=== PATIENT | female | born 1955 | race Caucasian/White ===

== ENCOUNTER 2020-04-03 08:18 | Inpatient (IN) | payer BC ==
[~2020-04-03] VITALS: Ht 162.6 cm; Wt 91.7 kg
[~2020-04-03 08:18] MED LIST: ADVAIR 250-501 EACH; ALBUTEROL SULF8.5 GM INH; ALPRAZOLAM0.25 MG PO; ATORVASTATIN CA20 MG PO; BENZONATATE100 MG PO; CAPTOPRIL25 MG PO; CARVEDILOL12.5 MG PO; COUMADIN5 MG PO; OMEPRAZOLE40 MG PO; POTASSIUM; SINGULAIR10 MG PO; WARFARIN SODIUM3 MG PO
--- OUTSIDE RECORDS SUMMARY | 2020-04-03 08:29 | XMS REPORT | Clinical Summary ---
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 Patient was taking brand name coumadin but brand name is discontinued. Patient was suppose to start generic on Wednesday. Active captopriL (CAPOTEN) 12.5 Take 12.5 mg 0 MG tablet by mouth 3 (three) times a day. Active montelukast (SINGULAIR) Take 10 mg by 0 10 mg tablet mouth nightly. Active omeprazole (PriLOSEC) 20 Take 20 mg by 0 MG capsule mouth daily. Active carvediloL (COREG) 12.5 Take 12.5 mg 0 MG tablet by mouth 2 (two) times a day with meals. Active atorvastatin (LIPITOR) 80 Take 80 mg by 0 MG tablet mouth nightly. Active albuterol (PROAIR HFA) 90 Inhale 2 0 mcg/actuation inhaler puffs every 6 (six) hours as needed for wheezing. Active nitroglycerin (NITROSTAT) Place 0.4 mg 0 0.4 MG SL tablet under the tongue every 5 (five) minutes as needed for chest pain. Active fluticasone Inhale 1 puff 0 propion-salmeteroL 2 (two) times (ADVAIR/ WIXELA INHUB) a day. 250-50 mcg/dose DISKUS Active vitamin B complex (B Take 1 tablet 0 COMPLEX ORAL) by mouth daily. Active ascorbic acid (VITAMIN C Take 1 tablet 0 ORAL) by mouth daily. Active vitamin B complex (B Take 1 tablet 0 COMPLEX ORAL) by mouth daily. 02/09/2020 aspirin 81 mg chewable Chew 1 tablet 30 tablet 0 0 tablet (81 mg total) 0 daily for 30 days. 01/10/2020 Discontinued (Reorder) furosemide (Lasix) 40 mg Take 1 tablet 15 tablet 0 tablet (40 mg total) 0 by mouth daily as needed (SOB) for up to 15 days. 01/15/2020 methylPREDNISolone follow 21 tablet 0 02 (Medrol, Tk,) 4 mg package 0 tablet directions 01/20/2020 azithromycin (ZITHROMAX) Take 1 tablet 10 tablet 0 500 MG tabletIndications: (500 mg 0 PNA total) by mouth daily for 10 days .PNA. Take 1 Tab Daily Additional Information Patient taking differently: 500 mg oral daily, Take 1 Tab DailyPt states that Dr Connell asked him to stop with 4 days left in regiment., Indications: PNA, Reported on 01/17/2020 01/25/2020 furosemide (Lasix) 40 mg Take 0.5 15 tablet 0 0 tablet tablets (20 0 mg total) by mouth daily as needed (SOB) for up to 15 days. Active Problems Problem Noted Date JACQUIE (acute kidney injury) 01/07/2020 Pneumonia due to infectious organism 01/07/2020 Acute on chronic congestive heart failure 01/05/2020 Encounters Care Team Description Date Type Specialty Halima Gallo NP Acute on chronic systolic congestive hea rt failure (HCC) (Primary Dx) 01/17/2020 Telemedicine Cardiology Provider, Unknown 01/17/2020 Documentation Medical Records Jeffrey Blair RN Follow-up 01/17/2020 Telephone Cardiology 01/16/2020 Travel Olga Lidia Mcgill MD Joglekar, Swati, MD Patel, Ruchita, MD Acute on chronic congestive heart failur e, unspecified heart failure type (HCC) (Primary Dx); COPD exacerbation (HCC) 01/05/2020 Hospital Cardiology - Encounter 01/10/2020 after 04/03/2019 Surgical History Surgery Date Site/Laterality Comments STENT cardiac stent x3 (2004, 2nd 2006, and 2007) Medical History Medical History Date Comments CHF (congestive heart failure) (HCC) Heart attack (HCC) x3 Stroke (HCC) 2012 Pneumonia 2015 Hypertension Social History Date Tobacco Use Types Packs/Day Years Used Current Every Day Smoker Cigarettes 1 Smokeless Tobacco: Never Used Drinks/Week oz/Week Comments Alcohol Use Never Alcohol Habits Answer Date Recorded How often do you have a drink containing alcohol? Never 01/05/2020 How many drinks containing alcohol do you have on No t asked a typical day when you are drinking? How often do you have six or more drinks on one Not asked occasion? Sex Assigned at Date Recorded Not on file Last Filed Vital Signs Reading Time Taken Comments Vital Sign 135/76 01/10/2020 12:13 PM CDT Blood Pressure 60 01/10/2020 12:13 PM CDT Pulse 36 C (96.8 F) 01/10/2020 12:13 PM CDT Temperature 18 01/10/2020 12:13 PM CDT Respiratory Rate 96% 01/10/2020 12:13 PM CDT Oxygen Saturation - - Inhaled Oxygen Concentration 91.9 kg (202 lb 9.6 oz) 01/10/2020 7:20 AM CDT Weight 162.6 cm (5' 4") 01/06/2020 1:00 AM CDT Height 34.78 01/06/2020 1:00 AM CDT Body Mass Index Plan of Treatment Health Maintenance Due Date Last Done Comments CERVICAL CANCER SCREENING 1978 BREAST CANCER SCREENING 2007 COLONOSCOPY SCREENING 2007 SHINGLES VACCINES (#1) 2007 INFLUENZA VACCINE 12/16/2019 Procedures Comments Procedure Name Priority Date/Time Associated Diag nosis ESTIMATED GFR Routine 01/10/2020 6:00 AM CDT COMPREHENSIVE METABOLIC Routine 01/10/2020 PANEL 6:00 AM CDT HC COMPLETE BLD COUNT Routine 01/10/2020 W/AUTO DIFF 6:00 AM CDT PROTHROMBIN TIME WITH INR STAT 01/09/2020 3:17 PM CDT [id number] IGG Routine 01/09/2020 3:16 PM CDT ECG 12-LEAD STAT 01/09/2020 9:21 AM CDT HC COMPLETE BLD COUNT Routine 01/09/2020 W/AUTO DIFF 4:50 AM CDT ESTIMATED GFR Routine 01/09/2020 4:00 AM CDT B NATRIURETIC PEPTIDE Routine 01/09/2020 4:00 AM CDT D-DIMER Routine 01/09/2020 4:00 AM CDT FERRITIN LEVEL Routine 01/09/2020 4:00 AM CDT INTERLEUKIN 6 Routine 01/09/2020 4:00 AM CDT C-REACTIVE PROTEIN Routine 01/09/2020 4:00 AM CDT COMPREHENSIVE METABOLIC Routine 01/09/2020 PANEL 4:00 AM CDT MAGNESIUM LEVEL Routine 01/09/2020 4:00 AM CDT PHOSPHORUS LEVEL Routine 01/09/2020 4:00 AM CDT LACTIC ACID LEVEL Routine 01/09/2020 4:00 AM CDT ECG 12-LEAD STAT 01/08/2020 9:19 AM CDT ESTIMATED GFR Routine 01/08/2020 3:50 AM CDT D-DIMER Routine 01/08/2020 3:50 AM CDT FERRITIN LEVEL Routine 01/08/2020 3:50 AM CDT INTERLEUKIN 6 Routine 01/08/2020 3:50 AM CDT C-REACTIVE PROTEIN Routine 01/08/2020 3:50 AM CDT COMPREHENSIVE METABOLIC Routine 01/08/2020 PANEL 3:50 AM CDT MAGNESIUM LEVEL Routine 01/08/2020 3:50 AM CDT PHOSPHORUS LEVEL Routine 01/08/2020 3:50 AM CDT LACTIC ACID LEVEL Routine 01/08/2020 3:50 AM CDT HC COMPLETE BLD COUNT Routine 01/08/2020 W/AUTO DIFF 3:50 AM CDT RESPIRATORY PATHOGEN Routine 01/07/2020 PANEL 8:55 PM CDT TTE COMPLETE, W CONTRAST, Routine 01/07/2020 W DOPPLER ([id number]) 2:30 PM CDT XR CHEST 1 VW PORTABLE Routine 01/07/2020 7:15 AM CDT ESTIMATED GFR Routine 01/07/2020 5:25 AM CDT D-DIMER Routine 01/07/2020 5:25 AM CDT FERRITIN LEVEL Routine 01/07/2020 5:25 AM CDT INTERLEUKIN 6 Routine 01/07/2020 5:25 AM CDT TRIGLYCERIDES Routine 01/07/2020 5:25 AM CDT C-REACTIVE PROTEIN Routine 01/07/2020 5:25 AM CDT COMPREHENSIVE METABOLIC Routine 01/07/2020 PANEL 5:25 AM CDT IONIZED CALCIUM Routine 01/07/2020 5:25 AM CDT TROPONIN Routine 01/07/2020 5:25 AM CDT MAGNESIUM LEVEL Routine 01/07/2020 5:25 AM CDT PHOSPHORUS LEVEL Routine 01/07/2020 5:25 AM CDT LACTIC ACID LEVEL Routine 01/07/2020 5:25 AM CDT HC COMPLETE BLD COUNT Routine 01/07/2020 W/AUTO DIFF 5:25 AM CDT POC GLUCOSE Routine 01/06/2020 8:[address] ANGIOGRAM PE CHEST STAT 01/06/2020 8:12 PM CDT TROPONIN STAT 01/06/2020 7:00 PM CDT COVID-19 QUALITATIVE PCR Routine 01/06/2020 12:28 PM CDT ARTERIAL BLOOD GAS Routine 01/06/2020 3:58 AM CDT ESTIMATED GFR Routine 01/06/2020 3:05 AM CDT B NATRIURETIC PEPTIDE Routine 01/06/2020 3:05 AM CDT C-REACTIVE PROTEIN Routine 01/06/2020 3:05 AM CDT FERRITIN LEVEL Routine 01/06/2020 3:05 AM CDT LDH Routine 01/06/2020 3:05 AM CDT TRIGLYCERIDES Routine 01/06/2020 3:05 AM CDT D-DIMER Routine 01/06/2020 3:05 AM CDT COMPREHENSIVE METABOLIC Routine 01/06/2020 PANEL 3:05 AM CDT INTERLEUKIN 6 Routine 01/06/2020 3:05 AM CDT HC COMPLETE BLD COUNT Routine 01/06/2020 W/AUTO DIFF 3:05 AM CDT MAGNESIUM LEVEL Routine 01/06/2020 3:05 AM CDT PHOSPHORUS LEVEL Routine 01/06/2020 3:05 AM CDT TROPONIN Timed 01/06/2020 12:55 AM CDT TROPONIN Timed 01/05/2020 10:00 PM CDT COVID-19 QUALITATIVE PCR STAT 01/05/2020 7:46 PM CDT XR CHEST 1 VW PORTABLE STAT 01/05/2020 6:53 PM CDT ESTIMATED GFR STAT 01/05/2020 6:30 PM CDT PARTIAL THROMBOPLASTIN STAT 01/05/2020 TIME (PTT) 6:30 PM CDT PROTHROMBIN TIME WITH INR STAT 01/05/2020 6:30 PM CDT B NATRIURETIC PEPTIDE STAT 01/05/2020 6:30 PM CDT TROPONIN STAT 01/05/2020 6:30 PM CDT CREATINE KINASE, TOTAL STAT 01/05/2020 (CPK) 6:30 PM CDT COMPREHENSIVE METABOLIC STAT 01/05/2020 PANEL 6:30 PM CDT HC COMPLETE BLD COUNT STAT 01/05/2020 W/AUTO DIFF 6:30 PM CDT ECG ED PRELIMINARY Routine 01/05/2020 INTERPRETATION 6:22 PM CDT RI CRITICAL CARE, E/M Routine 01/05/2020 30-74 MINUTES 6:22 PM CDT ECG 12-LEAD Routine 01/05/2020 6:20 PM CDT after 04/03/2019 Results * Estimated GFR (01/10/2020 6:00 AM CDT) Only the most recent of 6 results within the time period is included. Pathologist [facility] [place] Estimated GFR 66 mL/min/1.73 m2 [place] Comment: [facility] Interpretation G1 >=90 Normal or high G2 60-89 Mildly decreased G3a 45-59 Mildly to moderately decreased G3b 30-44 Moderately to severely decreased G4 15-29 Severely decreased G5 <15 Kidney failure The eGFR was calculated using the Chronic Kidney Disease Epidemiology Collaboration (CKD-EPI) equation. Interpretation is based on recommendations of the National Kidney Foundation-Kidney Disease Outcomes Quality Initiative (NKF-KDOQI) published in 2014. Specimen Performing Organization Address City/State/ZIP Code P adrien Number [facility] DEPARTMENT OF [address] [place] [address] PATHOLOGY AND GENOMIC MEDICINE [address] * CBC with platelet and differential (01/10/2020 6:00 AM CDT) Only the most recent of 6 results within the time period is included. Pathologist [facility] [place] WBC 13.38 (H) 4.50 - 11.00 k/uL [facility] RBC 4.68 4.20 - 5.50 m/uL [facility] HGB 14.5 12.0 - 16.0 g/dL [facility] HCT 44.4 37.0 - 47.0 % [facility] MCV 94.9 82.0 - 100.0 fL [facility] MCH 31.0 27.0 - 34.0 pg [facility] MCHC 32.7 31.0 - 37.0 g/dL [facility] RDW - SD 50.4 37.0 - 55.0 fL [facility] MPV 11.0 8.8 - 13.2 fL [facility] Platelet count 201 150 - 400 k/uL [facility] Nucleated RBC 0.00 /100 WBC [facility] Neutrophils 80.6 (H) 39.0 - 69.0 % [facility] Lymphocytes 10.5 (L) 25.0 - 45.0 % [facility] Monocytes 7.5 0.0 - 10.0 % [facility] Eosinophils 0.1 0.0 - 5.0 % [facility] Basophils 0.2 0.0 - 1.0 % [facility] Immature 1.1 (H)Comment: "Immature 0.0 - 1.0 % [facility] [place] granulocytes granulocytes" (promyelocytes, METHOD IST myelocytes, metamyelocytes) [facility] Specimen Blood Performing Organization Address City/State/ZIP Code P adrien Number [facility] DEPARTMENT OF [address] [place] [address] PATHOLOGY AND GENOMIC MEDICINE [address] * Comprehensive metabolic panel (01/10/2020 6:00 AM CDT) Only the most recent of 6 results within the time period is included. Sodium 140 135 - 148 mEq/L [facility] Potassium 4.4 3.5 - 5.0 mEq/L [facility] Chloride 96 (L) 98 - 112 mEq/L [facility] CO2 29 24 - 31 mEq/L [facility] Anion gap 15@ANIO 7 - 15 mEq/L [facility] BUN 27 (H) 8 - 23 mg/dL [facility] Creatinine 0.93 (H) 0.50 - 0.90 mg/dL [facility] Glucose 113 (H) 65 - 99 mg/dL [facility] Calcium 9.4 8.8 - 10.2 mg/dL [facility] Protein 6.5 6.3 - 8.3 g/dL [place] Comment: [facility] [place] 4.6-7.0 g/dL 1 week 4.4-7.6 g/dL 7 months-1year 5.1-7.3 g/dL 1-2 years 5.6-7.5 g/dL >3 years 6.0-8.0 g/dL 18-150 6.3-8.3 g/dL Albumin 3.3 (L) 3.5 - 5.0 g/dL [facility] A/G ratio 1.0 0.7 - 3.8 [facility] Alkaline 52 35 - 104 U/L [place] phosphatase [facility] AST 24 10 - 35 U/L [facility] ALT 30 5 - 50 U/L [facility] Total bilirubin 0.3 0.0 - 1.2 mg/dL [facility] Specimen Blood Performing Organization Address City/[facility] P adrien Number [facility] [place] [address] PATHOLOGY AND [facility] MEDICINE [address] * Prothrombin time with INR (01/09/2020 3:17 PM CDT) Only the most recent of 2 results within the time period is included. [facility] Prothrombin 13.4 11.5 - 14.5 sec [facility] INR 1.0 [place] Comment: [place] The International Normalized HOSPITAL Ratio (INR) is a therapeutic monitoring tool for patients who are stable on oral anticoagulant therapy. An INR of 2.0-3.0 is suggested for deep vein thrombosis/pulmonary embolism. Specimen Blood Performing Organization Address City/[facility] [place] [address] PATHOLOGY AND GENOMIC MEDICINE [address] * [id number] IgG (01/09/2020 3:16 PM CDT) Pathologist [facility] [place] [id number] Non-reactive Non-reactive [place] IgG Comment: HIND[place] This test should not be used HOSPITAL for the diagnosis of acute SARS-CoV-2/COVID-19 infection. Results are for the detection of IgG SARS-CoV-2 antibodies. Reactive results often indicate a past infection although a recent infection is not excluded. Non-reactive results do not preclude SARS-CoV-2 infection and should not be used as the sole basis for patient management decisions. Results must be combined with clinical observations, patient history, and epidemiological information. The sensitivity of the SARS-CoV-2 IgG assay early after infection is unknown. False reactive results may occur due to cross-reactivity from pre-existing antibodies or other possible causes. At this time, it is unknown for how long antibodies to SARS-CoV-2 virus may persist following infection. This test has not been FDA cleared or approved. This test has been authorized by FDA under an EUA for use by authorized laboratories. This test has been authorized only for the presence of IgG antibodies against SARS-CoV-2, not for any other viruses or pathogens. This test is only authorized for the duration of the declaration that circumstances exist justifying the authorization of emergency use of in vitro diagnostics for detection and/or diagnosis of COVID-19 under Section 564(b)(1) of the Act, 21 U.S.C. 360bbb-3(b)(1), unless authorization is terminated or revoked sooner. Specimen Serum Performing Organization Address City/State/ZIP Code P adrien Number [facility] DEPARTMENT OF [address] [place] [address] PATHOLOGY AND GENOMIC MEDICINE [place] [address] [place] [address] * ECG 12 lead (01/09/2020 9:21 AM CDT) Only the most recent of 3 results within the time period is included. Ventricular 61 [facility] rate Atrial rate 61 [facility] RI interval 144 [facility] QRSD interval 104 [facility] QT interval 422 [facility] QTC interval 424 [facility] P axis 1 69 [facility] QRS axis 1 -10 [facility] T wave axis 270 [facility] EKG impression Normal sinus rhythm-Possible [facility] Left atrial enlargement-Left ventricular hypertrophy-Anteroseptal infarct (cited on or before 08-JAN-2020)-ST & T wave abnormality, consider inferior ischemia-Abnormal ECG-In automated comparison with ECG of 08-JAN-2020 09:19,-Serial changes of evolving Anteroseptal infarct present- Specimen Narrative Performed At This result has an attachment that is n ot available. Performing Organization Address City/State/ZIP Code P adrien Number [facility] MUSE [address] [place] [address] * Interleukin 6 (01/09/2020 4:00 AM CDT) Only the most recent of 4 results within the time period is included. Pathologist [facility] [place] Interleukin 6 <2.5 0.0 - 10.5 pg/mL [place] Comment: HIND[place] This test has not been FDA HOSPITAL cleared or approved. This test has been authorized by FDA under an EUA for use by authorized laboratories. This test has been authorized only to assist in identifying severe inflammatory response, when used as an aid in determining the risk of intubation with mechanical ventilation in confirmed COVID-19 patients. This test is only authorized for the duration of the declaration that circumstances exist justifying the authorization of emergency use of medical devices under Section 564(b)(1) of the Act, 21 U.S.C. 360bbb-3(b)(1), unless the authorization is terminated or revoked sooner. Specimen Blood Performing Organization Address [facility] [place] [address] PATHOLOGY AND GENOMIC MEDICINE [place] [address] * D-dimer (01/09/2020 4:00 AM CDT) Only the most recent of 4 results within the time period is included. Pathologist [facility] [place] D-dimer <0.27 0.00 - 0.40 ug/mL [place] Comment: FEU [place] Units are ug/ml Fibrinogen HOSPITAL Equivalent Unit. When combined with low clinical probability, D-dimer results of less than 0.5 ug/ml FEU have a good negative predictive value in excluding PE or DVT. For D-dimer results greater than 0.5 ug/ml FEU further testing is indicated if PE or DVT is suspected clinically. Elevated D-dimer results have been reported in DVT, PE, and DIC cases and may indicate the presence of a clot. D-dimer results may be elevated due to old age, , inflammatory diseases, trauma, post-operative states, sepsis, and malignancies. Specimen Blood Performing Organization Address City/State/ZIP Code P adrien Number [place] [address] PATHOLOGY AND GENOMIC MEDICINE [address] * C-reactive protein (01/09/2020 4:00 AM CDT) Only the most recent of 4 results within the time period is included. CRP 1.25 (H) 0.00 - 0.50 mg/dL [facility] Specimen Blood Performing Organization Address City/[facility] Code P adrien Number [facility] [place] [address] PATHOLOGY AND GENOMIC MEDICINE [address] * Phosphorus level (01/09/2020 4:00 AM CDT) Only the most recent of 4 results within the time period is included. Phosphorus 2.5 2.4 - 4.5 mg/dL [facility] Specimen Blood Performing Organization Address [facility] P adrien Number [facility] [place] [address] PATHOLOGY AND GENOMIC MEDICINE [address] * B natriuretic peptide (01/09/2020 4:00 AM CDT) Only the most recent of 3 results within the time period is included. BNP 154 (H) 0 - 100 pg/mL [facility] Specimen Blood Performing Organization Address City/[facility] P adrien Number [facility] [place] [address] PATHOLOGY AND GENOMIC MEDICINE [address] * Magnesium level (01/09/2020 4:00 AM CDT) Only the most recent of 4 results within the time period is included. Magnesium 2.1 1.6 - 2.4 mg/dL [facility] Specimen Blood Performing Organization Address City/[facility]/ZIP Code P adrien Number [facility] [place] [address] PATHOLOGY AND GENOMIC MEDICINE [address] * Lactic acid level (01/09/2020 4:00 AM CDT) Only the most recent of 3 results within the time period is included. Lactic acid 2.3 (H) 0.5 - 2.2 mmol/L [facility] Specimen Blood Performing Organization Address City/[facility]/ZIP Code P adrien Number [facility] [place] [address] PATHOLOGY AND [facility] MEDICINE [address] * Ferritin level (01/09/2020 4:00 AM CDT) Only the most recent of 4 results within the time period is included. Pathologist [facility] Ferritin level 98 13 - 150 ng/mL [facility] Specimen Blood Performing Organization Address City/[facility] P adrien Number [facility] [place] [address] PATHOLOGY AND [facility] MEDICINE [address] * Respiratory pathogen panel (01/07/2020 8:55 PM CDT) Pathologist [facility] [place] Adenovirus PCR Not Detected [place] Comment: [place] Specimen Information HOSPITAL Specimen Source: Nares Specimen Site: Right Coronavirus Not Detected [place] HKU1 PCR [facility] Coronavirus Not Detect[facility] [place] NL63 PCR [facility] Coronavirus Not Detected [place] 229E PCR [facility] Coronavirus Not Detected [place] OC43 PCR [facility] Human Not Detected [place] metapneumovirus [place] PCR [facility] Human Not Detected [place] rhinovirus/ente [facility] rovirus PCR HOSPITAL Influenza A PCR Not Detected [facility] Influenza A/H1 Not Reported [place] PCR [facility] Influenza A/H3 Not Reported [facility] Influenza Not Reported [place] A/H1-2009 PCR [facility] Influenza B PCR Not Detected [facility] Parainfluenza Not Detected [place] virus 1 PCR [facility] Parainfluenza Not Detected [place] virus 2 PCR [facility] Parainfluenza Not Detected [place] virus 3 PCR [facility] Parainfluenza Not Detected [place] virus 4 PCR [facility] Respiratory Not Detected [place] syncytial virus [facility] PCR HOSPITAL Bordetella Not Detected [place] pertussis PCR [facility] Bordetella Not Detected [place] parapertussis [facility] PCR [facility]OSPITAL Chlamydia Not Detected [place] pneumoniae PCR [facility] Mycoplasma Not Detected [place] pneumoniae PCR [facility] Influenza A no Not Reported [place] sub type PCR [facility] Specimen Nares - Right Performing Organization Address City/[facility]/ZIP Code P adrien Number [facility] DEPARTMENT OF [address] [place] [address] PATHOLOGY AND GENOMIC MEDICINE [place] [address] * Transthoracic Echocardiogram Complete, (w Contrast, Strain and 3D if needed) (01/07/2020 2:30 PM CDT) Specimen Narrative Performed At H [facility] Echo cardiography Report [address] [facility], [facility] [address], [place] [address] Pat.Name: ZEINAB GUERRA.ID: [id number] .Date: 01/07/2020 Refer.MD: YULIA LEWIS MD Exam Time: 2:05:00 PM Study Type:Routine Echo Height: 64in Weight: 205lb BSA: 1.98 m2 Age: 12 1955,64Y Sex: FEMALE BP: 118/57 HR: 63 bpm Sonogrphr: BERONICA Estrada, [facility] [[email or web address]] Pat. Stat.:Inpatient Room: [place] [address] Study Status:Final Echo Event ID:[id number] Order ID: [id number] Reason for Study:Heart Failure Procedures: 2D Echo, Colorflow Doppler, Portable, Intravenous Optison Contrast Race: Z SUMMARY: LV size is moderately enlarged. LV EF is moderately to severely depress ed. Estimated EF is 30-34%. Regional wall motion abnormalities pres ent in LAD and RCA territories.. RV systolic function is normal. Diastolic dysfunction Grade II (Moderat e): Impaired relaxation with elevated LV filling pressures. Insufficient TR jet to estimate PA syst olic pressure. FINDINGS: LV: LV size is moderately enla rged. LV EF is moderately to severely depressed. Estim ated EF is 30-34%. Regional wall motion abnormalities pres ent. RV: RV size is normal. RV syst olic function is normal. LA: LA volume is severely enla rged. RA: RA size is normal. AO: Aortic root diameter is no rmal. RUSSEL: No pericardial effusion. AV: No structural AV abnormali ties noted. MV: No structural MV abnormali ties noted. PV: No structural PV abnormali ties noted. TV: No structural TV abnormali ties noted. [place]: Diastolic dysfunction Grade II (Moderate): Impaired relaxation with elevated LV filling pressures. Other: Insufficient TR jet to riccardo mate PA systolic pressure. MEASUREMENTS: 2D Parasternal [place] Ao An 2.4 cm LVPWd 0.98 cm Ao Rtd 3.1 cm Index 1.6 cm/m2 LA Ds 3.9 cm IVSd 0.8 cm RWT 0.31 LVIDd 6.3 cm Index 3.2 cm/m2 LV Mass 229 g (87-12 9)* LVIDs 5.8 cm LVM Index 115 g/m LV%fs 7.1 % LVOT 2.2 cm LA Sng Plane LA Area 27 cm (8.8-2 3.4)* LA Vol 116 ml Index 59 ml/m2 LA LngAx 4.9 cm LVOT LVOT Area 3.9 cm MMODE Tricuspid Valve TAPSE 2.4 cm DOPPLER LVOT For Flow LVOT TVI 19 cm LVOTmnPG 2 mmHg LVOTpkVel 97 cm/s HR 69 bpm LVOTpkPG 3.7 mmHg LVOT LVOT SV 75 ml LVOT CO 5.2 l/min SVi 38 ml/m LVOT CI 2.6 l/m/m WALL MOTION: RESTING WALL MOTION: Basal Inferoseptal, Basal Inferior, Mid Inferoseptal, Mid Inferior, Apical roldan are akinetic. Basal Ante roseptal, Basal Inferolateral, Mid Anteroseptal, Mid Inferolateral, Ap ical Septal, Apical Inferior, Apical Lateral roldan are hypokinetic. Basal Anterior, Mid Anterior, Apical Anterior roldan are mildly hypoki netic. Normal wall motion in all other roldan. Wall Index = 2.1 Signed 01/07/2020 06:15 PM Usman Noland M.D. Procedure Note Interface, Radiology Results In - 01/07/2020 6:15 PM CDT Echocardiography Report [address] [place] [address] Pat.Name: ZENIAB GUERRA Pat.ID: [id number] St.Date: 01/07/2020 Refer.MD: YULIA LEWIS MD Exam Time: 2:05:00 PM Study Type:Routine Echo Height: 64in Weight: 205lb BSA: 1.98 m2 Age: 12 1955,64Y Sex: FEMALE BP: 118/57 HR: 63 bpm Sonogrphr: Jillian Damon, BS, RDCS Pat. Stat.:Inpatient Room: [place] [address] Study Status:Final Echo Event ID:[id number] Order ID: [id number] Reason for Study:Heart Failure Procedures: 2D Echo, Colorflow Doppler, Portable, Intravenous Optison Contrast Race: Z SUMMARY: LV size is moderately enlarged. LV EF is moderately to severely depressed. Estimated EF is 30-34%. Regional wall motion abnormalities present in LAD and RCA territories.. RV systolic function is normal. Diastolic dysfunction Grade II (Moderate): Impaired relaxation with elevated LV filling pressures. Insufficient TR jet to estimate PA systolic pressure. FINDINGS: LV: LV size is moderately enlarged. LV EF is moderately to severely depressed. Estimated EF is 30-34%. Regional wall motion abnormalities present. RV: RV size is normal. RV systolic function is normal. LA: LA volume is severely enlarged. RA: RA size is normal. AO: Aortic root diameter is normal. RUSSEL: No pericardial effusion. AV: No structural AV abnormalities noted. MV: No structural MV abnormalities noted. PV: No structural PV abnormalities noted. TV: No structural TV abnormalities noted. [place]: Diastolic dysfunction Grade II (Moderate): Impaired relaxation with elevated LV filling pressures. Other: Insufficient TR jet to estimate PA systolic pressure. MEASUREMENTS: 2D Parasternal [place] Ao An 2.4 cm LVPWd 0.98 cm Ao Rtd 3.1 cm Index 1.6 cm/m2 LA Ds 3.9 cm IVSd 0.8 cm RWT 0.31 LVIDd 6.3 cm Index 3.2 cm/m2 LV Mass 229 g (87-129)* LVIDs 5.8 cm LVM Index 115 g/m LV%fs 7.1 % LVOT 2.2 cm LA Sng Plane LA Area 27 cm (8.8-23.4)* LA Vol 116 ml Index 59 ml/m2 LA LngAx 4.9 cm LVOT LVOT Area 3.9 cm MMODE Tricuspid Valve TAPSE 2.4 cm DOPPLER LVOT For Flow LVOT TVI 19 cm LVOTmnPG 2 mmHg LVOTpkVel 97 cm/s HR 69 bpm LVOTpkPG 3.7 mmHg LVOT LVOT SV 75 ml LVOT CO 5.2 l/min SVi 38 ml/m LVOT CI 2.6 l/m/m WALL MOTION: RESTING WALL MOTION: Basal Inferoseptal, Basal Inferior, Mid Inferoseptal, Mid Inferior, Apical roldan are akinetic. Basal Anteroseptal, Basal Inferolateral, Mid Anteroseptal, Mid Inferolateral, Apical Septal, Apical Inferior, Apical Lateral roldan are hypokinetic. Basal Anterior, Mid Anterior, Apical Anterior roldan are mildly hypokinetic. Normal wall motion in all other roldan. Wall Index = 2.1 Signed 01/07/2020 06:15 PM Usman Noland M.D. Performing Organization Address City/[facility]/ZIP Code P adrien Number [facility] [address] [place] [address] * XR Chest 1 Vw Portable (01/07/2020 7:15 AM CDT) Only the most recent of 2 results within the time period is included. Specimen Narrative Performed At EXAMINATION: XR CHEST 1 VW PORTABLE [facility] CLINICAL HISTORY: ICU pt stable wit h no clinical status changes, COVID-19 hypoxia COMPARISON: To a previous examination from 01/05/2020 IMPRESSION: Cardiomediastinal silhouette is promine nt. Perihilar and basilar consolidation has markedly improved since the previou s examination. There is no evidence of pleural effusio n, or pneumothorax. [facility]-[id number] Procedure Note Hm Interface, Radiology Results Incoming - 01/07/2020 8:25 AM CDT EXAMINATION: XR CHEST 1 VW PORTABLE CLINICAL HISTORY: ICU pt stable with no clinical status changes, COVID-19 hypoxia COMPARISON: To a previous examination from 01/05/2020 IMPRESSION: Cardiomediastinal silhouette is prominent. Perihilar and basilar consolidation has markedly improved since the previous examination. There is no evidence of pleural effusion, or pneumothorax. [facility]-[id number] Performing Organization Address [facility] Code P adrien Number [facility] [address] [place] [address] * Troponin (01/07/2020 5:25 AM CDT) Only the most recent of 5 results within the time period is included. Troponin 0.129 (H) 0.000 - 0.040 ng/mL [place] Comment: [facility] In patients suspected of HOSPITAL having a myocardial infarction, along with all other appropriate clinical measures and actions including ECG and other diagnostics as appropriate, measure Ultra TnI at 0 hrs and at 3 hrs. Myocardial infarction VERY LIKELY The 0 hr TnI level is > 0.10 ng/mL Myocardial infarction LIKELY The 0 hr TnI level is > 0.04 ng/mL and 3 hr level is increased or decreased by at least 0.020 ng/mL Myocardial infarction VERY UNLIKELY Both the 0 hr and 3 hr TnI levels <= 0.04 ng/mL(within normal limits) OR 0 hr is > 0.04 ng/mL and 3 hr is increased OR decreased by less than 0.020 ng/mL Specimen Blood Performing Organization Address City/State/[facility] [place] [address] PATHOLOGY AND GENOMIC MEDICINE [address] * Triglycerides (01/07/2020 5:25 AM CDT) Only the most recent of 2 results within the time period is included. Triglycerides 191 (H) <150 mg/dL [facility] Specimen Blood Performing Organization Address City/State/ZIP [facility] [place] [address] PATHOLOGY AND GENOMIC MEDICINE [address] * Ionized calcium (01/07/2020 5:25 AM CDT) pH 7.41 [facility] Ionized calcium 1.14 1.11 - 1.32 mmol/L [facility] Specimen Blood Performing Organization Address City/State/[place] [address] PATHOLOGY AND GENOMIC MEDICINE [place] [address] * POC glucose (01/06/2020 8:22 PM CDT) POC glucose 99 65 - 99 mg/dL [place] Comment: [facility] 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 Plug 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 Operator Name: [facility] Device ID: [id number] Chartable: [facility] Notified RN Specimen Blood Performing Organization Address City/State/ZIP Code P adrien Number [facility] DEPARTMENT OF [address] [place] [address] PATHOLOGY AND GENOMIC MEDICINE [place] [address] * CT Angiogram Pe Chest (01/06/2020 8:12 PM CDT) Specimen Narrative Performed At EXAMINATION: [facility] CT ANGIOGRAM PE CHEST CLINICAL HISTORY:64 years Female PE ayanna pected intermediate prob positive D-dimer, r o COVID-19 TECHNIQUE: CT angiographic images of the chest were obtained during intravenous administration of iodinated contrast. Computerized reformatted images and 3-D MIP images were also obt ained and archived (CT pulmonary embolus protocol). CT imaging was performed with iterative reconstruction techniques and/or automated exposure control to reduce radiation dose. COMPARISON: Chest radiograph 01/05/2020 FINDINGS: CHEST: Pulmonary arteries: Pulmonary trunk is nondistended. No filling defects within the pulmonary trunk, main pulmonary bra nches, lobar branches or segmental to subsegmental branches. Thoracic Inlet: No incidental thyroid lesions. No supraclavicular adenopathy. No axillary lymphadenopathy . Lungs and airways: Bibasilar subsegment al atelectasis. Patchy peripheral airspace infiltrates throughout the kenia gs with years of interstitial thickening. No suspicious pulmonary nodules althoug h inflammatory changes limits evaluation. Trachea is patent throughout its course. No bronchial wal l thickening or significant bronchiectasis. Pleura: No pneumothorax or pleural effu benja. Mediastinum and lymph nodes: Enlarged A P window lymph node measuring up to 1.4 cm. Additional prominent subcentimeter mediastinal hilar lymph nodes. Small sliding hiatal hernia. Cardiovascular: Heart is normal in size without pericardial effusion. Thickening of the left ventricular apex may repres ent sequelae of prior myocardial infarction. Scattered calcified plaques about the coronary arteries. The thoracic aorta is nonaneurysmal. Upper abdomen: No suspicious abnormalit ies. Bones: No aggressive osseous lesions. M inimal multilevel cervical thoracic degenerative disc disease. Other: None. IMPRESSION: 1.No CT evidence for acute pulmonary em bolism. 2.Patchy peripheral ground glass opacit ies scattered throughout the lungs. Findings can be seen with Covid 19 pneu monia amongst other etiologies such as influenza pneumonia, organizing pneumon ia or drug toxicity. Consider isolation and laboratory analysis. 3.Prominent/enlarged mediastinal and hi lar lymph nodes may be reactive. 4.Other findings as described above. [facility]-[id number] sheath likely Procedure Note [facility], Radiology Results Incoming - 01/06/2020 8:29 PM CDT EXAMINATION: CT ANGIOGRAM PE CHEST CLINICAL HISTORY:64 years Female PE suspected intermediate prob positive D- dimer, r o COVID-19 TECHNIQUE: CT angiographic images of the chest were obtained during intravenous administration of iodinated contrast. Computerized reformatted images and 3-D MIP images were also obtained and archived (CT pulmonary embolus protocol). CT imaging was performed with iterative reconstruction techniques and/or automated exposure control to reduce radiation dose. COMPARISON: Chest radiograph 01/05/2020 FINDINGS: CHEST: Pulmonary arteries: Pulmonary trunk is nondistended. No filling defects within the pulmonary trunk, main pulmonary branches, lobar branches or segmental to subsegmental branches. Thoracic Inlet: No incidental thyroid lesions. No supraclavicular adenopathy. No axillary lymphadenopathy. Lungs and airways: Bibasilar subsegmental atelectasis. Patchy peripheral airspace infiltrates throughout the lungs with years of interstitial thickening. No suspicious pulmonary nodules although inflammatory changes limits evaluation. Trachea is patent throughout its course. No bronchial wall thickening or significant bronchiectasis. Pleura: No pneumothorax or pleural effusion. Mediastinum and lymph nodes: Enlarged AP window lymph node measuring up to 1.4 cm. Additional prominent subcentimeter mediastinal hilar lymph nodes. Small sliding hiatal hernia. Cardiovascular: Heart is normal in size without pericardial effusion. Thickening of the left ventricular apex may represent sequelae of prior myocardial infarction. Scattered calcified plaques about the coronary arteries. The thoracic aorta is nonaneurysmal. Upper abdomen: No suspicious abnormalities. Bones: No aggressive osseous lesions. Minimal multilevel cervical thoracic degenerative disc disease. Other: None. IMPRESSION: 1.No CT evidence for acute pulmonary emb olism. 2.Patchy peripheral ground glass opaciti es scattered throughout the lungs. Findings can be seen with Covid 19 pneumonia amongst other etiologies such as influenza pneumonia, organizing pneumonia or drug toxicity. Consider isolation and laboratory analysis. 3.Prominent/enlarged mediastinal and hil ar lymph nodes may be reactive. 4.Other findings as described above. [facility]-[id number] sheath likely Performing Organization Address City/[facility]/ZIP [place] [address] * COVID-19 qualitative PCR (01/06/2020 12:28 PM CDT) Only the most recent of 2 results within the time period is included. Pathologist [facility] [place] Interpretation Negative results do not OB[place]ON preclude 2019-nCoV infection [facility] and should not be used as the HOSPITAL sole basis for treatment or other patient management decisions. Negative results must be combined with clinical observations, patient history, and epidemiological information. COVID-19 Not-Detected Not-Detected [facility] qualitative PCR [facility] result HOSPITAL COVID-19 See link below for PDF Lab [facility] [place] qualitative PCR ReportComment: Case Number: [facility]U [id number] HOSPITAL Specimen Nasopharyngeal swab Performing Organization Address [facility] P adrien Number [facility] [place] [address] [facility]Y AND [facility] MEDICINE [address] * Arterial blood gas (01/06/2020 3:58 AM CDT) [facility] pH, arterial 7.38 7.35 - 7.45 [facility] pCO2, arterial 47 (H) 35 - 45 mmHg [facility] pO2, arterial 158 (H) 80 - 90 mmHg [facility] Bicarbonate, 27.4 21.0 - 28.0 mmol/L [facility] Base excess, 2 -2 - 2 mEq/L [facility] O2 saturation, 99 95 - 100 % [facility] Specimen Blood Performing Organization Address [facility] P adrien Number [facility] [place] [address] PATHOLOGY AND GENOMIC MEDICINE [address] * LDH (01/06/2020 3:05 AM CDT) [facility] LDH 280 (H) 87 - 225 U/L [facility] Specimen Blood Performing Organization Address City/[facility]/ZIP Code P adrien Number [facility] [place] [address] PATHOLOGY AND GENOMIC MEDICINE [address] * Partial thromboplastin time, activated (01/05/2020 6:30 PM CDT) Pathologist [facility] PTT 31.6 23.0 - 36.0 sec [place] Comment: [facility] PTT therapeutic range for HOSPITAL unfractionated heparin is 61.0-112.0 seconds which corresponds to Anti-Xa 0.3-0.7 U/ml. Specimen Blood Performing Organization Address City/[facility] P adrien Number [facility] [place] [address] PATHOLOGY AND GENOMIC MEDICINE [address] * Creatine kinase, total (CPK) (01/05/2020 6:30 PM CDT) [facility] Creatine kinase 74 26 - 192 U/L [facility] Specimen Blood Performing Organization Address [facility] P adrien Number [facility] [place] [address] PATHOLOGY AND GENOMIC MEDICINE [address] * ECG ED Preliminary Interpretation - Not an Order (01/05/2020 6:22 PM CDT) Narrative Performed At Olga Lidia Mcgill MD 01/05/2020 9:47 PM ECG ED Preliminary Interpretation - Not an Order Performed by: Olga Lidia Mcgill MD Authorized by: Olga Lidia Mcgill MD ECG reviewed by ED Physician in the abs ence of a president college or university: yes Interpretation: Interpretation: abnormal Rate: ECG rate: 120 ECG rate assessment: tachycardic Rhythm: Rhythm: sinus tachycardia Conduction: Conduction: abnormal Abnormal conduction: LAFB Other findings: Other findings: MIS * CRITICAL CARE (01/05/2020 6:22 PM CDT) Narrative Performed At Olga Lidia Mcgill MD 01/05/2020 9:47 PM Critical Care Performed by: Olga Lidia Mcgill MD Authorized by: Olga Lidia Mcgill MD Critical care provider statement: Critical care time (minutes): 35 Critical care start time: 01/05/2020 6:30 PM Critical care end time: 01/05/2020 7 :05 PM Critical care was necessary to treat or prevent imminent or life-threatening deterioration of the f ollowing conditions: Cardiac failure (CHF) Critical care was time spent personal ly by me on the following activities: Development of treatment plan with patient or surrogate, discussions with consultants, evaluatio n of patient's response to treatment, examination of patient, inte rpretation of cardiac output measurements, obtaining history from pa tient or surrogate, ordering and performing treatments and interventions , ordering and review of laboratory studies, pulse oximetry, re-evaluation of patient's condition and review of old charts Nick 'yes' if you are taking over cri tical care for this patient from another provider.: no after 04/03/2019 Insurance Type Payer Benefit Subscriber ID Effective Phone Address Plan / Dates Group Exchange BCBS EXCHANGE BLUE [id number] 2019-P ADVANTAGE resent HMO EXCH Advance Directives For more information, please contact: [phone] Patient Cable Inspector Explanation Type Date Recorded Advance Directives, Living Will and Medical Power of Recycling Attendant
--- OUTSIDE RECORDS SUMMARY | 2020-04-03 08:29 | XMS REPORT | Continuity of Care Document ---
Author Author [facility] t Organization [facility] Address [address] [place] [address] Phone Unavailable Care Team Providers Care Director Medical Affairs Name Role Phone Asked, Pcp No PCP Unavailable Sabino RADIOLOGY ADMINISTRATOR, Halima Attphys [phone] Provider, Unknown Attphys Unavailable Johnnie RN, Jeffrey Attphys Unavailable Nano ALVAREZ, Olga Lidia Attphys Servando ALVAREZ, Maria Esther Attphys González ALVAREZ, Sola Attphys MARIA ESTHER AL Admphys Unavailable Payers Payer Name Policy Type Policy Number Effective Date Expiration Date Kajal tian [facility] [employer] [id number] 2019-Pre sentExchange [id number] 2019 00:00:00 Sabas Powell Problems Condition Name Condition Details Condition Category Status Onset Date Resolution Date Last Treatment Date Treating Clinician Comments Source JACQUIE (acute kidney injury) JACQUIE (acute kidney injury) Disease Ac tive 2020-01-07 00:00:[address] Pneumonia due to infectious organism Pneumonia due to infect ious organism Disease Active 2020-01-07 00:00:00 Sabas Powell Acute on chronic congestive heart failure Acute on chr onic congestive heart failure Disease Active 2020-01-05 00:00:00 Fadi Powell Allergies, Adverse Reactions, Alerts Allergy Name Allergy Type Status Severity Reaction(s) Onset Date Inacti ve Date Treating Clinician Comments Source No Known Allergies DA Active U 2019-07-22 00:00:00 [facility] No Known Contrast Allergies DA Active U 2008-09-05 00:00: 00 [facility] No Known Drug Allergies DA Active U 2008-09-05 00:00:00 [facility] No Known Food Allergies DA Active U 2008-09-05 00:00:00 [facility] No Known Other Allergies DA Active U 2008-09-05 00:00:00 [facility] No Known Drug Intolerances DA Active U 2002-03-19 00:00:0 0 [facility] Social History Social Habit Start Date Stop Date Quantity Comments Source History of tobacco use Cigarette Smoker Sabas Yarsani History SDOH Alcohol Std Drinks Sabas Powell History SDOH Alcohol Binge Sabas Powell Sex Assigned At Marlen Powell Cigarettes smoked current (pack per day) - Reported 00:00:00 2020-01-06 00:00:00 Sabas Powell Tobacco use and exposure 2020-01-06 00:00:00 2020-01-06 00:00:00 Lukasz kiran used Sabas Powell Alcohol intake 2020-01-06 00:00:00 2020-01-06 00:00:00 Lifetime non-drinker (finding) Sabas Powell History SDOH Alcohol Frequency 2020-01-05 00:00:00 2020-01-05 00:00:0 0 1 Sabas Powell Smoking Status Start Date Stop Date Source Current every day smoker 2020-01-06 00:00:00 Marlen Powell Medications Ordered Medication Name Filled Medication Name Start Date Stop Da te Current Medication? Ordering Clinician Indication Dosage Frequency Signature (SIG) Comments Components Source warfarin (COUMADIN) 5 MG tablet 2020-01-17 15:18:40 Yes 5mg QD Take 5 mg by mouth daily. Patient was taking brand name coumadin but brand name is discontinued. Patient was suppose to start generic on Wednesday. Sabas Powell captopriL (CAPOTEN) 12.5 MG tablet 2020-01-17 15:18:40 Y es 12.5mg Q.[id number] Take 12.5 mg by mouth 3 (three) times a day. Sabas Powell montelukast (SINGULAIR) 10 mg tablet 2020-01-17 15:18:40 Ye s 10mg QD Take 10 mg by mouth nightly. Sabas hess omeprazole (PriLOSEC) 20 MG capsule 2020-01-17 15:18:40 Yes 20mg QD Take 20 mg by mouth daily. Sabas Powell carvediloL (COREG) 12.5 MG tablet 2020-01-17 15:18:40 Yes 12.5mg Q.5D Take 12.5 mg by mouth 2 (two) times a day with meals. Sabas Powell atorvastatin (LIPITOR) 80 MG tablet 2020-01-17 15:18:40 Yes 80mg QD Take 80 mg by mouth nightly. Sabas perez albuterol (PROAIR HFA) 90 mcg/actuation inhaler 2020-01-17 15:18 :40 Yes 2{puff} Q6H Inhale 2 puffs every 6 (six) hours as needed for wheez ing. Sabas Powell nitroglycerin (NITROSTAT) 0.4 MG SL tablet 2020-01-17 15:18:[address] 0.4 mg under the tongue every 5 (five) minutes a s needed for chest pain. Sabas Powell fluticasone propion-salmeteroL (ADVAIR/ WIXELA INHUB) 250-50 mcg/dose DISKUS 2020-01-17 15:18:40 Yes 1{puff} Q.5D Inhale 1 puf f 2 (two) times a day. Sabas Powell vitamin B complex (B COMPLEX ORAL) 2020-01-17 15:18:40 Yes 1{tbl} QD Take 1 tablet by mouth daily. Sabas lara ascorbic acid (VITAMIN C ORAL) 2020-01-17 15:18:40 Yes 1{tbl} QD Take 1 tablet by mouth daily. Sabas Powell vitamin B complex (B COMPLEX ORAL) 2020-01-17 15:18:40 Yes 1{tbl} QD Take 1 tablet by mouth daily. Sabas lara aspirin 81 mg chewable tablet 2020-01-10 00:00:00 2020-02-09 23: 59:00 No 81mg QD Chew 1 tablet (81 mg total) daily for 30 days. Sabas Powell furosemide (Lasix) 40 mg tablet 2020-01-10 00:00:00 23:59:00 No 20mg Q24H Take 0.5 tablets (20 mg total) by mouth daily as needed (SOB) for up to 15 days. Sabas Powell azithromycin (ZITHROMAX) 500 MG tablet 2019-12-17 6 00:00:00 2020-01-20 23:59:00 No 500mg QD Take 1 tablet (500 mg total) by mouth daily for 10 days .PNA. Take 1 Tab Daily Sabas Powell methylPREDNISolone (Medrol, Tk,) 4 mg tablet 20 03-01-26 00:00:00 2020-01-15 23:59:00 No follow package directions Sabas Powell furosemide (Lasix) 40 mg tablet 2020-01-10 00:00:00 00:00:00 No 40mg Q24H Take 1 tablet (40 mg total) by mouth daily as needed (SOB) for up to 15 days. Sabas Powell Vital Signs Vital Name Observation Time Observation Value Comments Source Systolic blood pressure 2020-01-10 12:13:03 135 mm[Hg] Sabas Powell Diastolic blood pressure 2020-01-10 12:13:03 76 mm[Hg] Sabas Powell Heart rate 2020-01-10 12:13:03 60 /min Sabas Powell Body temperature 2020-01-10 12:13:03 36 Nikky Fadi ton Yarsani Respiratory rate 2020-01-10 12:13:03 18 /min Fadi ton Yarsani Oxygen saturation in Arterial blood by Pulse oximetry 01-09 12:13:03 96 /min Sabas Powell Body weight 2020-01-10 07:20:00 91.9 kg Sabas Powell BMI 2020-01-10 07:20:00 34.78 kg/m2 Sabas Powell Body height 2020-01-06 01:00:00 162.6 cm Sabas Powell Procedures Procedure Date / Time Performed Performing Clinician Sourc e HC COMPLETE BLD COUNT W/AUTO DIFF 2020-01-10 06:00:00 Mansoor Claudio COMPREHENSIVE METABOLIC PANEL 2020-01-10 06:00:00 Sola Claudio ESTIMATED GFR 2020-01-10 06:00:00 Sola Claudio odist PROTHROMBIN TIME WITH INR 2020-01-09 15:17:00 GonzálezPieroSolajennifer isaacs Yarsani DISN-DFUO-PFZ-2 IGG 2020-01-09 15:16:00 Sola Claudio ECG 12-LEAD 2020-01-09 09:21:21 Boo Calvert [place] ethodist HC COMPLETE BLD COUNT W/AUTO DIFF 2020-01-09 04:50:00 Tiny Lehman Yarsani LACTIC ACID LEVEL 2020-01-09 04:00:00 Tiny Oakley Yarsani PHOSPHORUS LEVEL 2020-01-09 04:00:00 Tiny Oakley Yarsani MAGNESIUM LEVEL 2020-01-09 04:00:00 Tiny Oakley COMPREHENSIVE METABOLIC PANEL 2020-01-09 04:00:00 Corona Oakley Yarsani C-REACTIVE PROTEIN 2020-01-09 04:00:00 Tiny Oakley INTERLEUKIN 6 2020-01-09 04:00:00 Tiny Oakley FERRITIN LEVEL 2020-01-09 04:00:00 Tiny Oakley D-DIMER 2020-01-09 04:00:00 Tiny Oakley B NATRIURETIC PEPTIDE 2020-01-09 04:00:00 Barry Fitch ESTIMATED GFR 2020-01-09 04:00:00 Tiny Oakley Yarsani ECG 12-LEAD 2020-01-08 09:19:00 Boo Calvert M ethodist HC COMPLETE BLD COUNT W/AUTO DIFF 2020-01-08 03:50:00 Tiny Lehman Yarsani LACTIC ACID LEVEL 2020-01-08 03:50:00 Tiny Oakley Yarsani PHOSPHORUS LEVEL 2020-01-08 03:50:00 Tiny Oakley Yarsani MAGNESIUM LEVEL 2020-01-08 03:50:00 Tiny Oakley COMPREHENSIVE METABOLIC PANEL 2020-01-08 03:50:00 Corona Oakley [place] Yarsani C-REACTIVE PROTEIN 2020-01-08 03:50:00 Tiny Oakley INTERLEUKIN 6 2020-01-08 03:50:00 Adin Coronanavneet Powell FERRITIN LEVEL 2020-01-08 03:50:00 Tiny Oakley D-DIMER 2020-01-08 03:50:00 Tiny Oakley Yarsani ESTIMATED GFR 2020-01-08 03:50:00 Tiny Oakley RESPIRATORY PATHOGEN PANEL 2020-01-07 20:55:00 Gagan Ellis TTE COMPLETE, W CONTRAST, W DOPPLER ([id number]) 2020-01-07 14:30 :00 Lissett Sahu XR CHEST 1 VW PORTABLE 2020-01-07 07:15:00 Adin Coronanavneet Powell HC COMPLETE BLD COUNT W/AUTO DIFF 2020-01-07 05:25:00 Tiny Lehman LACTIC ACID LEVEL 2020-01-07 05:25:00 Denita Oakleyhieu Ella Powell PHOSPHORUS LEVEL 2020-01-07 05:25:00 Adin Coronajohnyhieu Ella [place] Yarsani MAGNESIUM LEVEL 2020-01-07 05:25:00 Tiny Oakley TROPONIN 2020-01-07 05:25:00 Tiny Oakley Yarsani IONIZED CALCIUM 2020-01-07 05:25:00 Tiny Oakley COMPREHENSIVE METABOLIC PANEL 2020-01-07 05:25:00 AdinCorona Ella Powell C-REACTIVE PROTEIN 2020-01-07 05:25:00 Tiny Oakley TRIGLYCERIDES 2020-01-07 05:25:00 Tiny Oakley INTERLEUKIN 6 2020-01-07 05:25:00 Tiny Oakley FERRITIN LEVEL 2020-01-07 05:25:00 Tiny Oakley D-DIMER 2020-01-07 05:25:00 BolivarTiny Ella Edda erin Yarsani ESTIMATED GFR 2020-01-07 05:25:00 BolivarTiny Ella Edda erin Powell POC GLUCOSE 2020-01-06 20:22:00 Maria Esther Al Sabas meraz CT ANGIOGRAM PE CHEST 2020-01-06 20:12:29 BolivarTiny Sabas Powell TROPONIN 2020-01-06 19:00:00 Boo Calvertdutch [place] ethodist COVID-19 QUALITATIVE PCR 2020-01-06 12:28:00 BolivarCoronajohnyhieu Ella Powell ARTERIAL BLOOD GAS 2020-01-06 03:58:00 Dexter Lizama Yarsani PHOSPHORUS LEVEL 2020-01-06 03:05:00 Lissett Sahu MAGNESIUM LEVEL 2020-01-06 03:05:00 Lissett Sahu [place] Yarsani HC COMPLETE BLD COUNT W/AUTO DIFF 2020-01-06 03:05:00 Lissett Sahu [place] Yarsani INTERLEUKIN 6 2020-01-06 03:05:00 Lissett Sahu [place] Yarsani COMPREHENSIVE METABOLIC PANEL 2020-01-06 03:05:00 Rajan Sahu [place] Yarsani D-DIMER 2020-01-06 03:05:00 Lissett Sahu TRIGLYCERIDES 2020-01-06 03:05:00 Lissett Sahu [place] Yarsani LDH 2020-01-06 03:05:00 Lissett Sahu [place] Yarsani FERRITIN LEVEL 2020-01-06 03:05:00 Lissett Sahu [place] Yarsani C-REACTIVE PROTEIN 2020-01-06 03:05:00 Lissett Sahu B NATRIURETIC PEPTIDE 2020-01-06 03:05:00 Lissett Sahu ESTIMATED GFR 2020-01-06 03:05:00 ErosLissett rebollar Sabas Powell TROPONIN 2020-01-06 00:55:00 Olga Lidia Mcgill TROPONIN 2020-01-05 22:00:00 Olga Lidia Mcgill COVID-19 QUALITATIVE PCR 2020-01-05 19:46:00 Olga Lidia Mcgill XR CHEST 1 VW PORTABLE 2020-01-05 18:53:47 Olga Lidia Mcgill on Yarsani HC COMPLETE BLD COUNT W/AUTO DIFF 2020-01-05 18:30:00 Pedro Luis Mcgill COMPREHENSIVE METABOLIC PANEL 2020-01-05 18:30:00 Olga Lidia Mcgill CREATINE KINASE, TOTAL (CPK) 2020-01-05 18:30:00 Olga Lidia Mcgill TROPONIN 2020-01-05 18:30:00 Olga Lidia Mcgill B NATRIURETIC PEPTIDE 2020-01-05 18:30:00 Olga Lidia Mcgill PROTHROMBIN TIME WITH INR 2020-01-05 18:30:00 Olga Lidia Mcgill PARTIAL THROMBOPLASTIN TIME (PTT) 2020-01-05 18:30:00 Pedro Luis Mcgill ESTIMATED GFR 2020-01-05 18:30:00 Olga Lidia Mcgill MA CRITICAL CARE, E/M 30-74 MINUTES 2020-01-05 18:22:37 Edda Mcgill ECG ED PRELIMINARY INTERPRETATION 2020-01-05 18:22:37 Pedro Luis Mcgill ECG 12-LEAD 2020-01-05 18:20:05 Olga Lidia Mcgill Plan of Care Planned Activity Planned Date Details Comments Source Future Scheduled Test 2019-12-16 00:00:00 INFLUENZA VACCINE [code = INFLUENZA VACCINE] Sabas Powell Future Scheduled Test 2007 00:00:00 BREAST CANCER SCRE ENING [code = BREAST CANCER SCREENING] Sabas Powell Future Scheduled Test 2007 00:00:00 COLONOSCOPY SCREEN ING [code = COLONOSCOPY SCREENING] Sabas Powell Future Scheduled Test 2007 00:00:00 SHINGLES VACCINES (#1) [code = SHINGLES VACCINES (#1)] Sabas Powell Future Scheduled Test 1978 00:00:00 Screening for daryn gnant neoplasm of cervix (procedure) [code = 745934384] Sabas Gusman t Encounters Start Date/Time End Date/Time Encounter Type Admission Type [facility] Care Department Encounter ID Source 2020-03-26 20:30:00 Inpatient [facility] [id number] [facility] 2020-01-05 00:00:00 2020-01-10 00:00:00 Inpatient SOLA CLAUDIO [facility] [id number] Sabas Powell Results Test Description Test Time Test Comments Results Result Comments Source Nvfv-LJDU-EiZ-2 IgG 2020-01-10 10:07:18 Test Item Aodx-SVSP-JdA-2 IgG (test code = 7263) Non-reactive Non-reactive This test should not be used for the diagnosis of acute SARS-CoV-2/COVID-19 infection. Results are for the detection of IgG SARS-CoV-2 antibodies. Reactive results often indicate a past infection although a recent infection is not excluded. Non-reactive results do not preclude SARS-CoV-2 infection and should not be used as the sole basis for patient management decisions. Results must be combined w ith clinical observations, patient history, and epidemiological information. [...] under an EUA for use by authorized laboratories.This test has been authorized only for the [...] unless authorization is terminated or revoked sooner. Sabas PowellComprehensive metabolic [id number] 07:41:21* Test Item Value Reference Range Interpretation Comments Sodium (test code = 2951-2) 140 135- 148 mEq/L Potassium (test code = 2823-3) 4.4 3.5- 5.0 mEq/L Chloride (test code = 5-0) 96 98- 112 mEq/L L CO2 (test code = 2027-9) 29 24- 31 mEq/L Anion gap (test code = 27545-4) 15@ANIO 7- 15 mEq/L BUN (test code = 3094-0) 27 mg/dL 8-23 H Creatinine (test code = 2160-0) 0.93 mg/dL 0.5-0.9 H Glucose (test code = 2345-7) 113 mg/dL 65-99 H Calcium (test code = 79511-6) 9.4 mg/dL 8.8-10.2 Protein (test code = 2885-2) 6.5 g/dL 6.3-8.3 -[place] 4.6- 7.0 g/dL1 week 4.4-7.6 g/dL7 months-1year 5.1-7.3 g/dL1-2 years 5.6-7.5 g/dL>3 years 6.0-8.0 g/hZ53-997 6.3-8.3 g/dL Albumin (test code = 1751-7) 3.3 g/dL 3.5-5 L A/G ratio (test code = 1759-0) 1.0 0.7-3.8 Alkaline phosphatase (test code = 6768-6) 52 U/L 35-104 AST (test code = 1920-8) 24 U/L 10-35 ALT (test code = 1742-6) 30 U/L 5-50 Total bilirubin (test code = 1974-) 0.3 mg/dL 0-1.2 Lab Interpretation (test code = 74913-4) Abnormal [place] MethodistEstimated [id number] 07:41:19* Test Item Value Reference Range Interpretation Comments Estimated GFR (test code = 5488) 66 mL/min/1.73 m2 Catergory Units InterpretationG1 >=90 Normal or highG2 60-89 Mildly jeurluunuC1c 45-59 Mildly to moderately hwnrfseomK6b 30-44 Moderately to severely decreasedG4 15-29 Severely decreasedG5 <15 Kidney failureThe eGFR was calculated using the Chronic Kidney Disease Epidemiology Collaboration (CKD-EPI) equation. Interpretation is based on recommendations of the National Kidney Foundation-Kidney Disease Outcomes Quality Initiative (NKF-KDOQI) published in 2014. [place] [facility] with platelet and [id number] 07:08:59* Test Item Value Reference Range Interpretation Comments WBC (test code = 60355-3) 13.38 4.50- 11.00 k/uL H RBC (test code = 24520-0) 4.68 m/uL 4.2-5.5 HGB (test code = 718-7) 14.5 g/dL 12-16 HCT (test code = 4544-3) 44.4 % 37-47 MCV (test code = 787-2) 94.9 fL 82-100 MCH (test code = 785-6) 31.0 pg 27-34 MCHC (test code = 786-4) 32.7 g/dL 31-37 RDW - SD (test code = 05165-0) 50.4 fL 37-55 MPV (test code = 05275-4) 11.0 fL 8.8-13.2 Platelet count (test code = 98469-5) 201 150- 400 k/uL Nucleated RBC (test code = 47922-6) 0.00 /100 WBC Neutrophils (test code = 68728-5) 80.6 % 39-69 H Lymphocytes (test code = 60391-3) 10.5 % 25-45 L Monocytes (test code = 50630-4) 7.5 % 0-10 Eosinophils (test code = 46612-4) 0.1 % 0-5 Basophils (test code = 30421-4) 0.2 % 0-1 Immature granulocytes (test code = 11680-3) 1.1 % 0-1 H "Immature granulocytes" (promyelocytes, myelocytes, metamyelocytes) Lab Interpretation (test code = 81741-5) Abnormal [facility] [id number] 00:15:10* Test Item Value Reference Range Interpretation Comments Ventricular rate (test code = 253) 61 Atrial rate (test code = 255) 61 MA interval (test code = 266) 144 QRSD interval (test code = 260) 104 QT interval (test code = 264) 422 QTC interval (test code = 265) 424 P axis 1 (test code = 267) 69 QRS axis 1 (test code = 268) -10 T wave axis (test code = 270) 270 EKG impression (test code = 273) Normal sinus rhythm-P ossible Left atrial enlargement-Left ventricular hypertrophy-Anteroseptal infarct (cited on or before 08-JAN-2020)-ST & T wave abnormality, consider inferior ischemia-Abnormal ECG-In automated comparison with ECG of 08-JAN-2020 09:19,-Serial changes of evolving Anteroseptal infarct present- [place] MethodistProthrombin time with [id number] 15:32:36* Test Item Value Reference Range Interpretation Comments Prothrombin time (test code = 5902-2) 13.4 11.5- 14.5 sec INR (test code = 50290-8) 1.0 Th e International Normalized Ratio (INR) is a therapeutic monitoring tool for patients who are stable on oral anticoagulant therapy. An INR of 2.0-3.0 is suggested for deep vein thrombosis/pulmonary embolism. [place] MethodistB natriuretic [id number] 05:47:17* Test Item Value Reference Range Interpretation Comments BNP (test code = 91949-5) 154 pg/mL 0-100 H Lab Interpretation (test code = 66509-0) Abnormal [place] CzufjdgjhD-[id number] 05:44:44* Test Item Value Reference Range Interpretation Comments D-dimer (test code = 65952-5) <0.27 0.00- 0.40 ug/mL FEU Units are ug/ml Fibrinogen Equivalent Unit.When combined with low clinical probability, D-dimer results of less than 0.5 ug/ml FEU have a good negative predictive value in excluding PE or DVT. For D-dimer results greater than 0.5 ug/ml FEU further testing is indicated if PE or DVT is suspected clinically.Elevated D-dimer results have been reported in DVT, PE, and DIC cases and may indicate the pre sence of a clot. D-dimer results may be elevated due to old age, , inflammatory diseases, trauma, post-operative states, sepsis, and malignancies. [place] MethodistFerritin [id number] 05:41:19* Test Item Value Reference Range Interpretation Comments Ferritin level (test code = 2276-4) 98 ng/mL 13-150 [place] MethodistInterleukin 05:41:19* Test Item Value Reference Range Interpretation Comments Interleukin 6 (test code = 70707-0) <2.5 0-10.5 This test has not been FDA cleared [...] the authorization is terminated or revoked sooner. [place] MethodistC-reactive [id number] 05:30:01* Test Item Value Reference Range Interpretation Comments CRP (test code = 1988-5) 1.25 mg/dL 0-0.5 H Lab Interpretation (test code = 60615-8) Abnormal [place] MethodistMagnesium [id number] 05:29:59* Test Item Value Reference Range Interpretation Comments Magnesium (test code = 52730-9) 2.1 mg/dL 1.6-2.4 [place] MethodistPhosphorus [id number] 05:29:57* Test Item Value Reference Range Interpretation Comments Phosphorus (test code = 2777-1) 2.5 mg/dL 2.4-4.5 [place] MethodistLactic acid [id number] 05:23:05* Test Item Value Reference Range Interpretation Comments Lactic acid (test code = 51249-5) 2.3 mmol/L 0.5-2.2 H Lab Interpretation (test code = 35069-8) Abnormal [place] MethodistRespiratory pathogen [id number] 22:30:03* Test Item Value Reference Range Interpretation Comments Adenovirus PCR (test code = 7092) Not Detected Specimen InformationSpecimen Source: NaresSpecimen Site: Right Coronavirus HKU1 PCR (test code = 7093) Not Detected Coronavirus NL63 PCR (test code = 7094) Not Detected Coronavirus 229E PCR (test code = 7095) Not Detected Coronavirus OC43 PCR (test code = 7096) Not Detected Human metapneumovirus PCR (test code = 7097) Not Detected Human rhinovirus/enterovirus PCR (test code = 7098) Not Detected Influenza A PCR (test code = 7099) Not Detected Influenza A/H1 PCR (test code = 7100) Not Reported Influenza A/H3 PCR (test code = 7102) Not Reported Influenza A/H1-2009 PCR (test code = 7101) Not Reported Influenza B PCR (test code = 7104) Not Detected Parainfluenza virus 1 PCR (test code = 7105) Not Detected Parainfluenza virus 2 PCR (test code = 7106) Not Detected Parainfluenza virus 3 PCR (test code = 7107) Not Detected Parainfluenza virus 4 PCR (test code = 7108) Not Detected Respiratory syncytial virus PCR (test code = 7109) Not Detected Bordetella pertussis PCR (test code = 9642384) Not Detected Bordetella parapertussis PCR (test code = 8412911) Not Detected Chlamydia pneumoniae PCR (test code = 3753) Not Detected Mycoplasma pneumoniae PCR (test code = 7110) Not Detected Influenza A no sub type PCR (test code = 7127) Not Reported [facility], (w Contrast, Strain and 3D if needed)2020-01-07 18:15:00Interface, Radiology Results In - 01/07/2020 6:15 PM CDT Echocardiography Report [address] [place] [address].Name: JERRY GUERRA Pat.ID: [id number] .Date: 01/07/2020 Refer.MD: MARIA ESTHER AL MD Exam Time: 2:05:00 PM Study Type:Routine Echo Height: 64in Weight: 205lb BSA: 1.98 m2 Age: 12 1955,64Y Sex: FEMALE BP: 118/57 HR: 63 bpm Sonogrphr: Jillian Damon BS, RDCS Pat. Stat.:Inpatient Room: [place] [address] Study Status:Final Echo Event ID:[id number] Order ID: [id number] Reason for Study:Heart Failure Procedures: 2D Echo, Colorflow Doppler, Portable, Intravenous OptisonContrastRace: Z SUMMARY: -----LV size is moderately enlarged.LV EF is moderately to severely depressed.Es timated EF is 30-34%.Regional wall motion abnormalities present in LAD and RCAte rritories..RV systolic function is normal.Diastolic dysfunction Grade II (Modera te): Impaired relaxation withelevated LV filling pressures.Insufficient TR jet t o estimate PA systolic pressure. FINDINGS:--- LV: LV size is moderately enlarged. LV EF is moderately to severely depressed. Estimated EF is 30-34%. Regional wall motion abnormalities present.RV: RV size is normal. RV systo lic function is normal.LA: LA volume is severely enlarged.RA: RA siz e is normal.AO: Aortic root diameter is normal.RUSSEL: No pericardial ef fusion.AV: No structural AV abnormalities noted.MV: No structural MV abnormalities noted.PV: No structural PV abnormalities noted.TV: No structural TV abnormalities noted.[place]: Diastolic dysfunction Grade II (Mod erate): Impaired relaxation with elevated LV filling pressures.Other: Insufficient TR jet to estimate PA systolic pressure. MEASUREMENTS: 2DParasternal Long [place] Ao An 2.4 cm LVPWd 0.98 cm Ao Rtd 3.1 cm Index 1.6 cm/m2 LA Ds 3.9 cm IVSd 0.8 cm RWT 0.31 LVIDd 6.3 cm Index 3.2 cm/m2 LV Mass 229 g (87-129)* LVIDs 5.8 cm LVM Index 115 g/m2 LV%fs 7.1 % LVOT 2.2 cm LA Sng Plane LA Area 27 cm2 (8.8-23.4)* LA Vol 116 ml Index 59 ml/m2 LA LngAx 4.9 cm LVOT LVOT Area 3.9 cm2 MMODETricuspid Valve TAPSE 2.4 cm DOPPLERLVOT For Flow L VOT TVI 19 cm LVOTmnPG 2 mmHg LVOTpkVel 97 cm/s HR 69 bpm LVOTpkPG 3.7 mmHg LVOT LVOT SV 75 ml LVOT CO 5.2 l/min SVi 38 ml/m2 LVOT CI 2.6 l/m/m2 ----WALL MOTION: RESTING WALL MOTION:Basal In feroseptal, Basal Inferior, Mid Inferoseptal, Mid Inferior,Apical roldan are júnior etic. Basal Anteroseptal, Basal Inferolateral,Mid Anteroseptal, Mid Inferolater al, Apical Septal, Apical Inferior,Apical Lateral roldan are hypokinetic. Basal Anterior, Mid Anterior,Apical Anterior roldan are mildly hypokinetic. Normal wa ll motion inall other roldan.Wall Index = 2.1Signed 01/07/2020 06:15 PMUsman Noland M.D.[facility] MethodistXR Chest 1 [id number] 08:22:04Hm Interface, Radiology Results 01/07/2020 8:25 AM CDTEXAMINATION: XR CHEST 1 VW PORTABLECLINICAL HISTORY: ICU pt stable with no clinical status changes, COVID-19 hypoxiaCOMPARISON: To a previous examination from 01/05/2020 MPRESSION:Cardiomediastinal silhouette is prominent. Perihilar and basilar conso lidation has markedly improved since the previous examination.There is no eviden ce of pleural effusion, or pneumothorax.[facility]-[id number] Ley 2020-01-07 06:23:22* Test Item Value Reference Range Interpretation Comments Troponin (test code = 05567-8) 0.129 ng/mL 0-0.04 H In patients suspected of having a myocardial infarction, along with all other appropriate clinical measures and actions including ECG and other diagnostics as appropriate, measure Ultra TnI at 0 hrs and at 3 hrs.Myocardial infarction VERY LIKELYThe 0 hr TnI level is > 0.10 ng/mL Gordon cardial infarction LIKELYThe 0 hr TnI level is > 0.04 ng/mL and 3 hr level is increased or decreased by at least 0.020 ng/mL Myocardi al infarction VERY UNLIKELYBoth the 0 hr and 3 hr TnI levels <= 0.04 ng/mL(within normal limits) OR 0 hr is > 0.04 ng/mL and 3 hr is increased OR decreased by less than 0.020 ng/mL Lab Interpretation (test code = 11024-0) Abnormal [place] VmezymxabGehqyxngevzgx6451-15-28 06:18:41* Test Item Value Reference Range Interpretation Comments Triglycerides (test code = 2571-8) 191 mg/dL <150 H Lab Interpretation (test code = 41443-6) Abnormal [facility] MethodistIonized hxkzugg0200-89-33 06:07:19* Test Item Value Reference Range Interpretation Comments pH (test code = 2753-2) 7.41 Ionized calcium (test code = ) 1.14 mmol/L 1.11-1.32 [facility] MethodistCT Angiogram Pe Dnjmh9765-34-19:26:06 Interface, Radiology Results Incoming - 01/06/2020 8:29 PM CDTEXAMINATION:CT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 PAIN EXAMS: CPT CODE: [id number] XR KNEE 3 V LT [id number] REASON FOR EXAM: KNEE PAIN EXAM ORDER DATE: 07/22/2019 2:16 PM Ordering: Gagan Jacob MD Attending:Gagan Jacob MD Location: PROCEDURE: - XR KNEE 3 V LT FINDINGS: 3 views of the left knee were obtained. The osseous structures are unremarkable in size and shape. The joint spaces are maintained. No evidence of fracture. No evidence of joint effusion. The patella is intact IMPRESSION: Unremarkable left knee at 4336 Reported and signed by: Joao Gaspar M.D. CC: Gagan Jacob MD; Etienne Connell Technologist: Maxine Herbert(Vanessa) Trnscrd Date/Time/By: 07/22/2019 (5942) : By: [email or web address] Orig Print D/T: S: 07/22/2019 (2136) PAGE 1 Signed Report
[2020-04-03] MEDS ORDERED: FUROSEMIDE INJ 10 MG/ML 4 ML VIAL IV ONE (08:30)
[2020-04-03] MEDS ORDERED: NITROGLYCERIN/D5W 200 MCG/ML 250 ML IV PRN (08:30)
[2020-04-03] MEDS ORDERED: ALBUTEROL SULF 0.083% NEB SOLN 3 ML NEB NEB STA (08:31)
--- NOTE | 2020-04-03 08:37 | Emergency Department Note ---
History of Present Illnes History of Present Illness Chief Complaint: Respiratory History of Present Illness This is a 64 year old female Chief Complaint Comment Patient in from home via EMS with complaints of increased shortness of breath and respiratory distress that started this morning. Patient had an oxygen saturation in the 70s on EMS arrival and improved to the 80s after a neb treatment enroute. 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 Arrival Mode: [facility] Treatment DIRECTOR OF ACCREDITATION: O2 History limited by: condition of the patient Erp Manager Required: No Onset (how long ago): hour(s) Location: Lungs Quality: SoB Radiation: Reports non-radiation Severity: severe Onset quality: sudden Duration (how long): hour(s) (1) Timing of current episode: constant Progression: worsening Chronicity: new Context: Denies recent illness, Denies recent surgery Relieving factors: none Exacerbating factors: none Associated symptoms: Reports denies other symptoms Treatments prior to arrival: none Past Medical/Family History Physician Review I have reviewed the patient's past medical and family history. Any updates have been documented here. Past Medical History Recent Fever: No Clinical Suspicion of Infectio: No New/Unexplained Change in Ment: No Past Medical History: Hypertension, COPD, CHF, Hyperlipedemia Other Surgery: CARDIAC STENTS BLADDER SLING Social History Physically hurt or threatened: No Other Last Tetanus: UNK Review of Systems Review of Systems Constitutional: Reports no symptoms EENTM: Reports no symptoms Cardiovascular: Reports no symptoms Respiratory: Reports as per HPI, Reports dyspnea, Reports wheezing Gastrointestinal: Reports no symptoms Genitourinary: Reports no symptoms Musculoskeletal: Reports no symptoms Integumentary: Reports no symptoms Neurological: Reports no symptoms Psychological: Reports no symptoms Endocrine: Reports no symptoms Hematological/Lymphatic: Reports no symptoms Physical Exam Related Data Allergies: Coded Allergies: No Known Allergies (Unverified , 07/28/14) Triage Vital Signs Vital Signs Date Time Temp Pulse Resp B/P (MAP) Pulse Ox O2 Delivery O2 Flow Rate FiO2 04/03/20 08:23 124 29 234/155 87 Mask 15.0 04/03/20 08:30 99.7 Vital signs reviewed: Yes Physical Exam CONSTITUTIONAL Constitutional: Present well-developed, Present well-nourished, Present obese, Present ill appearing HENT HENT: Present normocephalic, Present atraumatic, Present oropharynx clear/moist, Present nose normal HENT L/R: Present left ext ear normal, Present right ext ear normal EYES Eyes: Reports PERRL, Reports conjunctivae normal NECK Neck: Present ROM normal PULMONARY Pulmonary: Present respiratory distress, Present rales, Present other (Wheezes); Absent effort normal, Absent breath sounds normal CARDIOVASCULAR Cardiovascular: Present regular rhythm, Present heart sounds normal, Present capillary refill normal, Present normal rate GASTROINTESTINAL Abdominal: Present soft, Present nontender, Present bowel sounds normal GENITOURINARY Genitourinary: Present exam deferred SKIN Skin: Present warm, Present dry MUSCULOSKELETAL Musculoskeletal: Present ROM normal NEUROLOGICAL Neurological: Present alert, Present oriented x 3, Present no gross motor or sensory deficits PSYCHOLOGICAL Psychological: Present mood/affect normal, Present judgement normal Results Laboratory Lab results reviewed: Yes Imaging Imaging results reviewed: Yes Diagnostics Tests Diagnostic test(s) reviewed: Yes Procedures 12 Lead ECG Interpretation ECG Interpretation : Erp Manager: Interpreted by ED physician Date: Apr 03, 2020 Rhythm: sinus tachycardia Rate: tachycardia QRS axis: normal ST segments normal: Yes T waves normal: Yes Clinical Impression: abnormal ECG Additional Comments Poor quality EKG 2/2 resp distress Critical Care Time Critcal care necessary due to: respiratory failure Critcal care time spent by me: blood dram for specimens, discussion w consultants, interpret cardiac output measures, evaluation patient response to tx, examination of patient, obtaining hx from patient/surrogate, order/perform tx or interventions, order/review laboratory studies, pulse oximetry, re- evaluation of patient condition, review of old charts Comments Critical care time 34 minutes Assessment & Plan Medical Decision Making MDM 64-year-old female presents in respiratory distress with past medical history significant for COPD and CHF. Initial examination shows tachypnea, oxygen saturation 84% on nonrebreather. She is placed on BiPAP 10/5, given albuterol, ipratropium, 80 mg Lasix, nitroglycerin drip at 100 g per hour. Initially hypertensive 230/143. Vital signs stabilized with the above management and patient feels much better. She will require transfer to MICU for CHF exacerbation. Possible PNA with WBC 21 LA 3.3. VBG shows pH 7.29 CO2 66 O2 96 HCO3 32. Fluids contra-indicated 2/2 CHF exacerbation/patient refused fluids. Discussed with Dr. leary who has agreed to admit. Also discussed with Dr. Dimitry Sepsis suspected at time of antibiotic order. Lactic acid was repeated if initial >2 30cc/kg crystalloid bolus not indicated Focused exam for sepsis done Vasopressors were not indicated Reassessment Reassessment time: 08:46 Reassessment Breathing much improved Assessment & Plan Final Impression: (1) Acute exacerbation of CHF (congestive heart failure) Depart Disposition: ADMITTED Last Vital Signs Date Time Temp Pulse Resp B/P (MAP) Pulse Ox O2 Delivery O2 Flow Rate FiO2 04/03/20 08:30 99.7 117 22 230/143 99 Bi-pap 04/03/20 08:23 15.0 Home Meds Reported Medications [Potassium] No Conflict Check 03/03/16 Benzonatate (BENZONATATE) 100 Mg Capsule, 100 MG PO Q6HR PRN for COUGH, CAP 03/03/16 Alprazolam (ALPRAZOLAM) 0.25 Mg Tablet, 0.25 MG PO Q6HR, TAB 03/03/16 Albuterol Sulfate (ALBUTEROL SULFATE HFA) 8.5 Gm Hfa.aer.ad, 2 INH INH PRN 07/28/14 Montelukast Sodium (SINGULAIR) 10 Mg Tablet, 10 MG PO DAILY 07/28/14 Omeprazole (OMEPRAZOLE) 40 Mg Capsule.dr, 20 MG PO DAILY 07/28/14 Warfarin Sodium (COUMADIN) 5 Mg Tablet, 5 MG PO 1700, #30 TAB 07/28/14 Carvedilol (CARVEDILOL) 12.5 Mg Tablet, 12.5 MG PO BID, #60 TAB 07/28/14 Captopril (CAPTOPRIL) 25 Mg Tablet, 12.5 MG PO TID, TAB 07/28/14 Atorvastatin Calcium (ATORVASTATIN CALCIUM) 20 Mg Tablet, 80 MG PO DAILY 07/28/14 Fluticasone/Salmeterol (ADVAIR 250-50 DISKUS) 1 Each Disk.w.dev 07/28/14 Medications in the ED Nitroglycerin/ Dextrose 250 ml @ 0 mls/hr TITRATE PRN IV HEART RATE; Start 04/03/20 at 08:30; Stop 05/03/20 at 08:29; Status UNV Furosemide 80 mg ONCE ONCE IV ; Start 04/03/20 at 08:30; Stop 04/03/20 at 08:31; Status UNV Albuterol Sulfate 3 ml NOW STAT NEB ; Start 04/03/20 at 08:31; Stop 04/03/20 at 08:32; Status UNV Ipratropium [place] 2.5 ml ONCE ONCE NEB ; Start 04/03/20 at 08:45; Stop 04/03/20 at 08:46 Albuterol Sulfate 6 ml STK-MED ONCE .ROUTE ; Start 04/03/20 at 08:40; Stop 04/03/20 at 08:32; Status DC Ipratropium [place] 2.5 ml STK-MED ONCE .ROUTE ; Start 04/03/20 at 08:40; Stop 04/03/20 at 08:34; Status DC PAYTON DIAZ MD Apr 03, 2020 08:37
[2020-04-03 08:40] LABS: BASOPHILS # (AUTO) 0.2 (0.0-0.1); BASOPHILS % 0.7 % (0.0-1.0); EOSINOPHILS # (AUTO) 0.4 (0.0-0.4); EOSINOPHILS % 1.7 % (0.0-6.0); HEMATOCRIT 55.9 % (34.2-44.1); HEMOGLOBIN 17.7 g/dL (12.0-16.0); LYMPHOCYTES # (AUTO) 10.1 (1.0-3.2); MEAN CORPUSCULAR HGB CONC 31.7 g/dL (31-35); MEAN CORPUSCULAR VOLUME 97.9 fL (81-99); MONOCYTES # (AUTO) 1.4 (0.2-0.8); MONOCYTES % 6.3 % (4.4-11.3); NEUTROPHILS # (AUTO) 9.3 (2.1-6.9); NEUTROPHILS % 42.5 % (38.7-80.0); PLATELET COUNT 312 x10e3/uL (140-360); RED BLOOD COUNT 5.71 x10e6/uL (3.6-5.1); RED CELL DISTRIBUTION WIDTH 15.5 % (11.7-14.4)
[2020-04-03] MEDS ORDERED: ALBUTEROL SULF 0.083% NEB SOLN 3 ML NEB ONE (08:40)
[2020-04-03] MEDS ORDERED: IPRATROPIUM BROMIDE 0.02% 2.5 ML NEB ONE (08:40)
[2020-04-03] MEDS ORDERED: IPRATROPIUM BROMIDE 0.02% 2.5 ML NEB NEB ONE (08:45)
--- NOTE | 2020-04-03 08:53 | NUR ---
BLOOD PRESSURE NOW 112/87. SPOKE WITH ER AND SUSPENDED NITRO DRIP. WILL CONTINUE TO MONITOR BP.
--- NOTE | 2020-04-03 09:03 | Diagnostic Imaging Report ---
X-ray chest frontal view History: Shortness of breath, chest pain Comparison: None Findings: Lines and tubes: Not applicable Central airways: Unremarkable Cardiac silhouette: Unremarkable Mediastinal silhouettes: Unremarkable Pleura: Unremarkable Diaphragms: Unremarkable Lungs: Bilateral pulmonary interstitial infiltrates mostly in the central location, left much more than right but also noticeable peripherally for example in the left lung lower segment. Skeletal structures: Unremarkable Extrathoracic soft tissues: Unremarkable Impression: Interstitial edema or atypical infection should be considered in the differential diagnosis. Signed by: Sam Mathew MD on 04/03/2020 9:00 AM
[2020-04-03] MEDS ORDERED: ONDANSETRON HCL INJ 2MG/ML 2ML 2 MG/ML VIAL IV STA (09:09)
[2020-04-03 09:12] LABS: ALBUMIN 4.2 g/dL (3.5-5.0); ALBUMIN/GLOBULIN RATIO 1.3 (0.8-2.0); ANION GAP 17.4 mmol/L (8-16); CREATININE, SERUM 1.5 mg/dL (0.57-1.11); POTASSIUM 4.4 mmol/L (3.5-5.1)
[2020-04-03] MEDS: CEFEPIME 1GM/NS 0.9% 50 ML 50 ML IV SCH ×2 (09:32→21:30)
--- OUTSIDE RECORDS SUMMARY | 2020-04-03 12:29 | XMS REPORT | Clinical Summary ---
Author Author [place] [facility] Organization [place] [facility] Address Unknown Phone Unavailable Care Team Providers Care Human Intelligence Name Role Phone Asked, No Pcp PCP [...] WITH INR STAT 01/09/2020 3:17 PM CDT [id number] IGG Routine 01/09/2020 3:16 PM CDT ECG [...] PRELIMINARY Routine 01/05/2020 INTERPRETATION 6:22 PM CDT TX CRITICAL CARE, E/M Routine 01/05/2020 30-74 MINUTES 6:22 PM CDT ECG 12-LEAD Routine 01/05/2020 6:20 PM CDT after 04/03/2019 Results * Estimated GFR (01/10/2020 6:00 AM CDT) Only the most recent of 6 results within the time period is included. Pathologist [facility] Estimated GFR 66 mL/min/1.73 m2 [place] Comment: [facility] Interpretation G1 >=90 Normal or high G2 [...] Organization Address City/State/ZIP Code P adrien Number [facility] DEPARTMENT OF [address] [place] [address] PATHOLOGY AND GENOMIC MEDICINE [address] * CBC with platelet and differential (01/10/2020 6:00 AM CDT) Only the most recent of 6 results within the time period is included. Pathologist [facility] WBC 13.38 (H) 4.50 - 11.00 k/uL [facility] RBC 4.68 4.20 - 5.50 m/uL [facility] HGB 14.5 12.0 - 16.0 g/dL [facility] HCT 44.4 37.0 - 47.0 % [facility] MCV 94.9 82.0 - 100.[address] [facility] MCH 31.0 27.0 - 34.[address] [facility] MCHC 32.7 31.0 - 37.0 g/dL [facility] RDW - SD 50.4 37.0 - 55.[address] [facility] MPV 11.0 8.8 - 13.[address] [facility] Platelet count 201 150 - 400 k/uL [facility] Nucleated RBC 0.00 /[address] [facility] Neutrophils 80.6 (H) 39.0 - 69.0 % [facility] Lymphocytes 10.5 (L) 25.0 - 45.0 % [facility] Monocytes 7.5 0.0 - 10.0 % [facility] Eosinophils 0.1 0.0 - 5.0 % [facility] Basophils 0.2 0.0 - 1.0 % [facility] Immature 1.1 (H)Comment: "Immature 0.0 - 1.0 % [facility] granulocytes granulocytes" (promyelocytes, METHOD IST myelocytes, metamyelocytes) [facility] Specimen Blood Performing Organization Address City/State/ZIP Code P adrien Number [facility] DEPARTMENT OF [address] [place] [address] PATHOLOGY AND GENOMIC MEDICINE [address] * Comprehensive metabolic panel (01/10/2020 6:00 AM CDT) Only the most recent of 6 results within the time period is included. Sodium 140 135 - 148 mEq/L [facility] Potassium 4.4 3.5 - 5.0 mEq/L [facility] Chloride 96 (L) 98 - 112 mEq/L [facility] CO2 29 24 - 31 mEq/L [facility] Anion gap 15@ANIO 7 - 15 mEq/L [facility] BUN 27 (H) 8 - 23 mg/dL [facility] Creatinine 0.93 (H) 0.50 - 0.90 mg/dL [facility] Glucose 113 (H) 65 - 99 mg/dL [facility] Calcium 9.4 8.8 - 10.2 mg/dL [facility] Protein 6.5 6.3 - 8.3 g/dL [place] Comment: [facility] [place] 4.6-7.0 g/dL 1 week 4.4-7.6 g/dL 7 months-1year 5.1-7.3 g/dL 1-2 years 5.6-7.5 g/dL >3 years 6.0-8.0 g/dL 18-150 6.3-8.3 g/dL Albumin 3.3 (L) 3.5 - 5.0 g/dL [facility] A/G ratio 1.0 0.7 - 3.[address] [facility] Alkaline 52 35 - 104 U/L [place] phosphatase [facility] AST 24 10 - 35 U/L [facility] ALT 30 5 - 50 U/L [facility] Total bilirubin 0.3 0.0 - 1.2 mg/dL [facility] Specimen Blood Performing Organization Address City/[facility] P adrien Number [facility] [place] [address] PATHOLOGY AND [facility] MEDICINE [address] * Prothrombin time with INR (01/09/2020 3:17 PM CDT) Only the most recent of 2 results within the time period is included. [facility] Prothrombin 13.4 11.5 - 14.5 sec [facility] INR 1.0 [place] Comment: TENRIISM The International Normalized HOSPITAL Ratio (INR) is a therapeutic monitoring tool for patients who are stable on oral anticoagulant therapy. An INR of 2.0-3.0 is suggested for deep vein thrombosis/pulmonary embolism. Specimen Blood Performing Organization Address City/[facility] [place] [address] PATHOLOGY AND GENOMIC MEDICINE [address] * Ztda-CAJY-KuW-2 IgG (01/09/2020 3:16 PM CDT) Pathologist [facility] Ygqd-EQBG-BgA-2 Non-reactive Non-reactive [place] IgG Comment: TENRIISM This test should not be used HOSPITAL [...] Organization Address City/State/ZIP Code P adrien Number [facility] DEPARTMENT OF [address] [place] [address] PATHOLOGY AND GENOMIC MEDICINE [place] TENRIISM [address] [place] [address] * ECG 12 lead (01/09/2020 9:21 AM CDT) Only the most recent of 3 results within the time period is included. Ventricular 61 [facility] MUSE rate Atrial rate 61 [facility] MUSE [place] interval 144 [facility] MUSE QRSD interval 104 [...] Organization Address City/State/ZIP Code P adrien Number [facility] MUSE [address] [place] [address] * Interleukin 6 (01/09/2020 4:00 AM CDT) Only the most recent of 4 results within the time period is included. Pathologist [facility] Interleukin 6 <2.5 0.0 - 10.5 pg/mL [place] Comment: TENRIISM This test has not been FDA HOSPITAL [...] revoked sooner. Specimen Blood Performing Organization Address [facility] [place] [address] PATHOLOGY AND GENOMIC MEDICINE [place] TENRIISM[address] * D-dimer (01/09/2020 4:00 AM CDT) Only the most recent of 4 results within the time period is included. Pathologist [facility] D-dimer <0.27 0.00 - 0.40 ug/mL [place] Comment: FEU TENRIISM Units are ug/ml Fibrinogen HOSPITAL Equivalent Unit. [...] City/State/ZIP Code P adrien Number [place] [address] PATHOLOGY AND GENOMIC MEDICINE [address] * C-reactive protein (01/09/2020 4:00 AM CDT) Only the most recent of 4 results within the time period is included. CRP 1.25 (H) 0.00 - 0.50 mg/dL [facility] Specimen Blood Performing Organization Address City/[facility] Code P adrien Number [facility] [place] [address] PATHOLOGY AND GENOMIC MEDICINE [address] * Phosphorus level (01/09/2020 4:00 AM CDT) Only the most recent of 4 results within the time period is included. Phosphorus 2.5 2.4 - 4.5 mg/dL [facility] Specimen Blood Performing Organization Address [facility] P adrien Number [facility] [place] [address] PATHOLOGY AND GENOMIC MEDICINE [address] * B natriuretic peptide (01/09/2020 4:00 AM CDT) Only the most recent of 3 results within the time period is included. BNP 154 (H) 0 - 100 pg/mL [facility] Specimen Blood Performing Organization Address City/[facility] P adrien Number [facility] [place] [address] PATHOLOGY AND GENOMIC MEDICINE [address] * Magnesium level (01/09/2020 4:00 AM CDT) Only the most recent of 4 results within the time period is included. Magnesium 2.1 1.6 - 2.4 mg/dL [facility] Specimen Blood Performing Organization Address City/[facility]/ZIP Code P adrien Number [facility] [place] [address] PATHOLOGY AND GENOMIC MEDICINE [address] * Lactic acid level (01/09/2020 4:00 AM CDT) Only the most recent of 3 results within the time period is included. Lactic acid 2.3 (H) 0.5 - 2.2 mmol/L [facility] Specimen Blood Performing Organization Address City/[facility]/ZIP Code P adrien Number [facility] [place] [address] PATHOLOGY AND [facility] MEDICINE [address] * Ferritin level (01/09/2020 4:00 AM CDT) Only the most recent of 4 results within the time period is included. Pathologist [facility] Ferritin level 98 13 - 150 ng/mL [facility] Specimen Blood Performing Organization Address City/[facility] P adrien Number [facility] [place] [address] PATHOLOGY AND [facility] MEDICINE [address] * Respiratory pathogen panel (01/07/2020 8:55 PM CDT) Pathologist [facility] Adenovirus PCR Not Detected [place] Comment: TENRIISM Specimen Information HOSPITAL Specimen Source: Nares Specimen Site: Right Coronavirus Not Detected [place] [facility]U1 [facility] Coronavirus Not Detected [place] NL63 PCR [facility] Coronavirus Not Detected [place] 229E PCR [facility] Coronavirus Not Detected [place] OC43 PCR [facility] Human Not Detected [place] metapneumovirus TENRIISM PCR [facility] Human Not Detected [place] rhinovirus/ente TENRIISM rovirus PCR HOSPITAL Influenza A PCR Not Detected [facility] Influenza A/H1 Not Reported [place] PCR [facility] Influenza A/H3 Not Reported [facility] Influenza Not Reported [place] A/H1-2009 PCR [facility] Influenza B PCR Not Detected [facility] Parainfluenza Not Detected [place] virus 1 [facility] Parainfluenza Not Detected [place] virus 2 [facility] Parainfluenza Not Detected [place] virus 3 PCR [facility] Parainfluenza Not Detected [place] virus 4 [facility] Respiratory Not Detected [place] syncytial virus [facility] PCR HOSPITAL Bordetella Not Detected [place] pertussis PCR [facility] Bordetella Not Detected [place] parapertussis [facility] PCR HOSPITAL Chlamydia Not Detected [place] pneumoniae PCR [facility] Mycoplasma Not Detected [place] pneumoniae PCR [facility] Influenza A no Not Reported [place] sub type PCR [facility] Specimen Nares - Right Performing Organization Address City/[facility]/ZIP Code P adrien Number [facility] DEPARTMENT OF [address] [place] [address] PATHOLOGY AND GENOMIC MEDICINE [place] TENRIISM [address] * Transthoracic Echocardiogram Complete, (w Contrast, Strain and 3D if needed) (01/07/2020 2:30 PM CDT) Specimen Narrative Performed At [facility] Echo cardiography Report [address] [facility], [employer] [address], [place] [address] Pat.Name: ZEINAB GUERRA.ID: [id number] .Date: 01/07/2020 Refer.MD: YULIA LEWIS MD Exam Time: 2:05:00 PM Study Type:Routine Echo Height: 64in Weight: 205lb BSA: 1.98 m2 Age: 14 1955,64Y Sex: FEMALE BP: 118/57 HR: 63 bpm Sonogrphr: BERONICA Estrada, [facility] Pat. Stat.:Inpatient Room: [place] [address] Study Status:Final Echo Event ID:[id number] Order ID: [id number] Reason for Study:Heart Failure Procedures: 2D Echo, [...] PA systolic pressure. MEASUREMENTS: 2D Parasternal [place] Ao An 2.4 cm LVPWd 0.98 cm [...] 01/07/2020 6:15 PM CDT Echocardiography Report [address] [place] [address] Pat.Name: ZEINAB GUERRA Pat.ID: [id number] St.Date: 01/07/2020 Refer.MD: YULIA LEWIS MD Exam Time: 2:05:00 PM Study Type:Routine Echo Height: 64in Weight: 205lb BSA: 1.98 m2 Age: 14 1955,64Y Sex: FEMALE BP: 118/57 HR: 63 bpm Sonogrphr: Jillian Damon, BS, RDCS Pat. Stat.:Inpatient Room: [place] [address] Study Status:Final Echo Event ID:[id number] Order ID: [id number] Reason for Study:Heart Failure Procedures: 2D Echo, [...] PA systolic pressure. MEASUREMENTS: 2D Parasternal [place] Ao An 2.4 cm LVPWd 0.98 cm [...] PM Usman Noland M.D. Performing Organization Address City/[facility]/ZIP Code P adrien Number [facility] [address] [place] [address] * XR Chest 1 Vw Portable (01/07/2020 [...] evidence of pleural effusio n, or pneumothorax. [facility]-[id number] Procedure Note Hm Interface, Radiology Results Incoming - 01/07/2020 8:25 AM CDT EXAMINATION: XR CHEST 1 VW PORTABLE CLINICAL HISTORY: ICU pt stable with no clinical status changes, COVID-19 hypoxia COMPARISON: To a previous examination from 01/05/2020 IMPRESSION: Cardiomediastinal silhouette is prominent. Perihilar and basilar consolidation has markedly improved since the previous examination. There is no evidence of pleural effusion, or pneumothorax. [facility]-[id number] Performing Organization Address [facility] Code P adrien Number [facility] [address] [place] [address] * Troponin (01/07/2020 5:25 AM CDT) Only the most recent of 5 results within the time period is included. Troponin 0.129 (H) 0.000 - 0.040 ng/mL [place] Comment: TENRIISM In patients suspected of HOSPITAL having a [...] 0.020 ng/mL Specimen Blood Performing Organization Address City/State/[facility] [place] [address] PATHOLOGY AND GENOMIC MEDICINE [address] * Triglycerides (01/07/2020 5:25 AM CDT) Only the most recent of 2 results within the time period is included. Triglycerides 191 (H) <150 mg/dL [facility] Specimen Blood Performing Organization Address City/State/ZIP [facility] [place] [address] PATHOLOGY AND GENOMIC MEDICINE [address] * Ionized calcium (01/07/2020 5:25 AM CDT) pH 7.[address] [facility] Ionized calcium 1.14 1.11 - 1.32 mmol/L [facility] Specimen Blood Performing Organization Address City/State/[place] [address] PATHOLOGY AND GENOMIC MEDICINE [place] TENRIISM [address] * POC glucose (01/06/2020 8:22 PM CDT) POC glucose 99 65 - 99 mg/dL [place] Comment: TENRIISM Hearing Care Practitioner Name: [facility] Device ID: [id number] Chartable: [facility] Notified RN Specimen Blood Performing Organization Address City/State/ZIP Code P adrien Number [facility] DEPARTMENT OF [address] [place] [address] PATHOLOGY AND GENOMIC MEDICINE [place] TENRIISM [address] * CT Angiogram Pe Chest (01/06/2020 [...] be reactive. 4.Other findings as described above. [facility]-[id number] sheath likely Procedure Note [facility], Radiology Results Incoming - 01/06/2020 8:29 [...] be reactive. 4.Other findings as described above. [facility]-[id number] sheath likely Performing Organization Address City/[facility]/ZIP [place] [address] * COVID-19 qualitative PCR (01/06/2020 12:28 PM CDT) Only the most recent of 2 results within the time period is included. Pathologist [facility] Interpretation Negative results do not [place] preclude 2019-nCoV infection TENRIISM and should not be used as the HOSPITAL sole basis for treatment or other patient management decisions. Negative results must be combined with clinical observations, patient history, and epidemiological information. COVID-19 Not-Detected Not-Detected [place] qualitative PCR TENRIISM result HOSPITAL COVID-19 See link below for PDF Lab [place] qualitative PCR ReportComment: Case Number: TENRIISM [id number] HOSPITAL Specimen Nasopharyngeal swab Performing Organization Address [facility] P adrien Number [facility] [place] [address] PATHOLOGY AND [facility] MEDICINE [address] * Arterial blood gas (01/06/2020 3:58 AM CDT) [facility] pH, arterial 7.38 7.35 - 7.[address] [facility] pCO2, arterial 47 (H) 35 - [address] [facility] pO2, arterial 158 (H) 80 - [address] [facility] Bicarbonate, 27.4 21.0 - 28.0 mmol/L [facility] Base excess, 2 -2 - 2 mEq/L [facility] O2 saturation, 99 95 - 100 % [facility] Specimen Blood Performing Organization Address [facility] P adrien Number [facility] [place] [address] PATHOLOGY AND GENOMIC MEDICINE [address] * LDH (01/06/2020 3:05 AM CDT) [facility] LDH 280 (H) 87 - 225 U/L [facility] Specimen Blood Performing Organization Address City/[facility]/ZIP Code P adrien Number [facility] [place] [address] PATHOLOGY AND GENOMIC MEDICINE [address] * Partial thromboplastin time, activated (01/05/2020 6:30 PM CDT) Pathologist [facility] PTT 31.6 23.0 - 36.0 sec [place] Comment: TENRIISM PTT therapeutic range for HOSPITAL unfractionated heparin is 61.0-112.0 seconds which corresponds to Anti-Xa 0.3-0.7 U/ml. Specimen Blood Performing Organization Address City/[facility] P adrien Number [facility] [place] [address] PATHOLOGY AND GENOMIC MEDICINE [address] * Creatine kinase, total (CPK) (01/05/2020 6:30 PM CDT) [facility] Creatine kinase 74 26 - 192 U/L [facility] Specimen Blood Performing Organization Address [facility] P adrien Number [facility] [place] [address] PATHOLOGY AND GENOMIC MEDICINE [address] * ECG ED Preliminary Interpretation - Not an Order (01/05/2020 6:22 PM CDT) Narrative Performed At Olga Lidia Mcgill MD 01/05/2020 9:47 PM ECG ED Preliminary Interpretation - Not an Order Performed by: Olga Lidia Mcgill MD Authorized by: Olga Lidia Mcgill MD ECG reviewed by ED Physician in the abs ence of a welcome desk agent: yes Interpretation: Interpretation: abnormal Rate: ECG rate: [...] / Dates Group Exchange BCBS EXCHANGE BLUE [id number] 2019-P ADVANTAGE resent HMO EXCH Advance Directives For more information, please contact: [phone] Patient Rehabilitation Center Manager Explanation Type Date Recorded Advance Directives, Living Will and Medical Power of Wire Welder
--- OUTSIDE RECORDS SUMMARY | 2020-04-03 12:29 | XMS REPORT | Clinical Summary ---
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
--- NOTE | 2020-04-03 12:30 | NUR ---
patient arrived to room 199. bipap on. patient denies concerns. wctm.
--- OUTSIDE RECORDS SUMMARY | 2020-04-03 12:30 | XMS REPORT | Continuity of Care Document ---
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 [phone] Exam Date: 07/22/2019 1500 FAX #: Reason: HEADACHE EXAMS: CPT CODE: [id number] CT HEAD/BRAIN W/O CONT 45437 <Continued> the sphenoid sinuses. Correlate clinically. Degenerative changes of the cervical spine but no fracture or malalignment. Location: RR at 1525 Reported and signed by: Femi Spann MD CC: Gagan Jacob MD; Etienne Connell Technologist:Alexandria Contreras RT(R),CT CTDI: DLP: Trnscb Date/Time: 07/22/2019 (1525) [email or web address] Orig Print D/T: S: 07/22/2019 (1528) PAGE 2 Signed Report URINALYSIS [id number] 15:03:00* Test Item Value Reference Range Interpretation [...] Clean Catch- XR SHOULDER 2 + V [id number] 14:57:00 FAX: Gagan Jacob MD Williams: St: PRE FAX: Etienne Marion [facility] [phone] Name: JERRY GUERRA [facility] : 1955 Age/S: 64/F [address] Unit #: [id number] Loc: [place] [address] Phys: Gagan Jacob MD Acct: [id number] Dis Date: Status: PRE ER PHONE #: [phone] Exam Date: 07/22/2019 1450 FAX #: [phone] Reason: SHOULDER PAIN EXAMS: CPT CODE: [id number] XR SHOULDER 2 + [place] [id number] REASON FOR EXAM: SHOULDER PAIN EXAM ORDER [...] Gagan Jacob MD; Eligio Connell Technologist: Maxine Herbert(Vanessa) Trnscrd Date/Time/By: 07/22/2019 (6312) : By: NievesVTL Orig Print D/T: S: 07/22/2019 (2154) PAGE 1 Signed Report - XR KNEE 3 V LT 2019-07-22 14:56:00 FAX: Gagan Jacob MD Williams: B St: PRE FAX: Etienne Marion [phone] Name: JERRY GUERRA [facility] : 1955 Age/S: 64/F [address] Unit #: [id number] Loc: [place] [address] Phys: Gagan Jacob MD Acct: [id number] Dis Date: Status: PRE ER PHONE #: [phone] Exam Date: 07/22/2019 1450 FAX #: [phone] Reason: KNEE PAIN EXAMS: CPT CODE: [id number] XR KNEE 3 [place] [id number] REASON FOR EXAM: KNEE PAIN EXAM ORDER [...] is intact IMPRESSION: Unremarkable left knee at 7656 Reported and signed by: Joao Gaspar M.D. CC: Gagan Jacob MD; Etienne Connellh Technologist: Maxine Herbert(Vanessa) Trnscrd Date/Time/By: 07/22/2019 (3638) : By: NievesVTL Orig Print D/T: S: 07/22/2019 (4984) PAGE 1 Signed Report
[2020-04-03 13:03] VITALS: BP 124/89
[2020-04-03 13:48] VITALS: BP 124/89
[2020-04-03 14:12] VITALS: BP 124/89
[2020-04-03 16:16] VITALS: BP 134/73
[2020-04-03] MEDS ORDERED: ALBUTEROL/IPRATROPIUM 3 ML NEB NEB PRN (16:30)
[2020-04-03] MEDS ORDERED: BENZONATATE 100 MG CAP PO PRN (16:30)
[2020-04-03] MEDS ORDERED: ACETAMINOPHEN 325 MG TAB PO PRN (16:30)
[2020-04-03] MEDS ORDERED: GUAIFENESIN/CODEINE 10 ML CUP PO PRN (16:30)
[2020-04-03] MEDS ORDERED: POLYETHYLENE GLYCOL 3350 17 GM PACK PO PRN (16:30)
[2020-04-03] MEDS ORDERED: DEXTROSE 50% SYRINGE 50 ML IV PRN (16:30)
[2020-04-03] MEDS ORDERED: ONDANSETRON HCL INJ 2MG/ML 2ML 2 MG/ML VIAL IV PRN (16:30)
[2020-04-03] MEDS ORDERED: HYDRALAZINE HCL 20 MG/ML VIAL IV PRN (16:30)
[2020-04-03] MEDS ORDERED: DOCUSATE SODIUM 100 MG CAP PO PRN (16:30)
[2020-04-03] MEDS ORDERED: HYDROCODONE/APAP 5MG-325MG TAB PO PRN (16:30)
[2020-04-03] MEDS ORDERED: ENOXAPARIN SOD INJ 40 MG/0.4 ML SYR SC SCH (17:00)
[2020-04-03] MEDS ORDERED: NICOTINE 7 MG PATCH TOP PRN (18:15)
[2020-04-03 18:26] LABS: INR 2.37
[2020-04-03] MEDS: SALMETEROL/FLUTICASONE 250/50 INH SCH (19:00)
--- NOTE | 2020-04-03 19:10 | History and Physical ---
CHIEF COMPLAINT: Shortness of breath. HISTORY OF PRESENT ILLNESS: A 64-year-old female, morbidly obese, chronic smoker, has a history of COPD and heart failure. She presented to the emergency room with complaints of shortness of breath, cough, and congestion ongoing since last several days. The patient was admitted at [facility]. According to the patient, she was treated for acute exacerbation of COPD as well as underlying heart failure. She was given some steroids and diuretics. She recently discontinued her oral Lasix. She now reports with worsening shortness of breath. Denies any edema. Reports orthopnea and dyspnea on exertion. The patient is seen and evaluated at bedside on the medical floor. She is currently doing well with no other issues at this time. She is currently in IM. Blood pressure systolic was in 130s when I evaluated and she is on oxygen approximately 3-4 L. She was stable during my evaluation. REVIEW OF SYSTEMS: Pertinent positives orthopnea, dyspnea on exertion, and shortness of breath. The rest of 14-point review of systems have been reviewed with the patient and are negative. ALLERGIES: NO KNOWN DRUG ALLERGIES. HOME MEDICATIONS: Albuterol, Xanax, Lipitor, Tessalon Perles, captopril, Coreg, Advair, Singulair, omeprazole, and warfarin. PAST MEDICAL HISTORY: Hypertension, morbid obese, COPD, history of heart failure, acid reflux, and anxiety. History of CVA in the past, on anticoagulation therapy due to cerebral stenosis, CKD. PAST SURGICAL HISTORY: Reports none. PAST FAMILY HISTORY: Hypertension and diabetes. SOCIAL HISTORY: She is a chronic smoker. No drugs or any alcohol. She is not on home O2. PHYSICAL EXAMINATION: VITAL SIGNS: Temperature is 96.8, pulse 62, respiratory rate 16, blood pressure was 134/73, pulse ox 99% on 3 L nasal cannula. Pulse is 85. GENERAL: In no acute distress. Alert and oriented x3. She is cooperative on examination. PULMONARY: She has expiratory wheezing appreciated. Decreased breath sounds bilaterally. No rhonchi. No crackles. CARDIOVASCULAR: Positive S1, S2. No murmurs, rubs, or gallops appreciated. ABDOMEN: Soft, nontender, nondistended to palpation. Bowel sounds present. MUSCULOSKELETAL: Strength 5/5 throughout. SKIN: Intact. Warm to touch. Good cap refill. LABORATORY DATA: Labs show white count 21, hemoglobin 17, hematocrit 55.9, and platelets of 312. Coagulation; PT and INR pending. VBG; pH is 7.2, pCO2 of 66, PO2 of 96, and bicarbonate was 32. Chemistry; sodium is 140, potassium 4.4, chloride 100, bicarb 27, anion gap of 17, BUN 27, creatinine 1.5, and glucose was 200. Lactic acid was 3.3 on admission, now 1.9. LFTs within normal range. Troponin 0.021. BNP 103. Albumin is 4.2. Lipase is 52. Vanegas virus not detected. MICROBIOLOGY: Blood cultures no growth to date. DIAGNOSTIC STUDIES: Chest x-ray shows interstitial edema or atypical infection, possibility. IMPRESSION: 1. Acute exacerbation of chronic obstructive pulmonary disease-DuoNeb treatments, antibiotics, steroids, Advair, Pulmonary consultation. 2. Acute exacerbation of congestive heart failure with diastolic dysfunction-cardioprotective medications, diuretics, and Cardiology consultation. 3. Hypertension-continue with same antihypertensive medications, p.r.n. hydralazine. 4. History of anxiety-continue with Xanax. 5. History of cerebrovascular accident on anticoagulation-continue with warfarin, get INR levels. 6. Nutrition-heart healthy diet. 7. Physical Therapy/Occupational Therapy evaluation. 8. Warfarin for deep venous thrombosis prophylaxis. CONSULTANTS: Pulmonary Critical Care, Cardiology. MD HERRERA Virk/MODL /[id number]
[2020-04-03 19:25] VITALS: BP 136/78
[2020-04-03] MEDS ORDERED: SODIUM CHLORIDE 0.9% 250ML 250 ML ONE (20:03)
[2020-04-03 20:10] LABS: ANION GAP 15.4 mmol/L (8-16); CALCIUM 9.2 mg/dL (8.4-10.2); CREATININE, SERUM 1.38 mg/dL (0.57-1.11); POTASSIUM 4.4 mmol/L (3.5-5.1)
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
[2020-04-03] MEDS: CAPTOPRIL 25 MG TAB PO SCH (21:00)
[2020-04-03] MEDS: FUROSEMIDE INJ 10 MG/ML 4 ML VIAL IV SCH (21:00)
[2020-04-03] MEDS ORDERED: MELATONIN 5 MG TABLET PO PRN (21:00)
[2020-04-03] MEDS: DOXYCYCLINE HYCLATE TABLET 100 MG TAB PO SCH (22:02)
[2020-04-04] VITALS (7 sets, daily range): BP systolic 92–131; BP diastolic 45–95
--- NOTE | 2020-04-04 02:00 | NUR ---
Patient received lasix and woke up to pee most of the shift and so was off the monitor, television camera operator was made aware that will connect patient when patient is settled down.
[2020-04-04 05:08] LABS: BASOPHILS % 0.4 % (0.0-1.0); EOSINOPHILS # (AUTO) 0.3 (0.0-0.4); EOSINOPHILS % 2.9 % (0.0-6.0); HEMATOCRIT 44.5 % (34.2-44.1); HEMOGLOBIN 14.2 g/dL (12.0-16.0); LYMPHOCYTES # (AUTO) 1.8 (1.0-3.2); LYMPHOCYTES % 16.7 % (18.0-39.1); MEAN CORPUSCULAR HEMOGLOBIN 30.5 pg (28-32); MEAN CORPUSCULAR HGB CONC 31.9 g/dL (31-35); MEAN CORPUSCULAR VOLUME 95.5 fL (81-99); MONOCYTES # (AUTO) 0.9 (0.2-0.8); MONOCYTES % 8.3 % (4.4-11.3); NEUTROPHILS # (AUTO) 7.5 (2.1-6.9); NEUTROPHILS % 70.4 % (38.7-80.0); PLATELET COUNT 174 x10e3/uL (140-360); RED BLOOD COUNT 4.66 x10e6/uL (3.6-5.1); RED CELL DISTRIBUTION WIDTH 15.5 % (11.7-14.4)
[2020-04-04 05:29] LABS: ALBUMIN 3.5 g/dL (3.5-5.0); ALBUMIN/GLOBULIN RATIO 1.3 (0.8-2.0); CALCIUM 8.6 mg/dL (8.4-10.2); CREATININE, SERUM 1.31 mg/dL (0.57-1.11); MAGNESIUM 1.8 MG/DL (1.3-2.1); PHOSPHORUS 3.3 MG/DL (2.3-4.7)
[2020-04-04 05:39] LABS: INR 2.23; PROTHROMBIN TIME 25.8 seconds (11.9-14.5)
[2020-04-04] MEDS: ALPRAZOLAM 0.25 MG TAB PO SCH ×5 (06:00→23:11)
--- NOTE | 2020-04-04 06:00 | NUR ---
Patient condition throughout the night was stable, patient endorsed to next shift for continuity of care.
[2020-04-04] MEDS: SALMETEROL/FLUTICASONE 250/50 INH SCH ×2 (07:00→19:00)
[2020-04-04] MEDS: DOXYCYCLINE HYCLATE TABLET 100 MG TAB PO SCH ×2 (08:45→20:07)
[2020-04-04] MEDS: CARVEDILOL 12.5 MG TAB PO SCH ×2 (08:45→18:03)
[2020-04-04] MEDS: CAPTOPRIL 25 MG TAB PO SCH ×3 (08:47→20:07)
[2020-04-04] MEDS: PANTOPRAZOLE SOD 40 MG TABEC PO SCH (08:47)
[2020-04-04] MEDS: ATORVASTATIN 40 MG TAB PO SCH (08:48)
[2020-04-04] MEDS: FUROSEMIDE INJ 10 MG/ML 4 ML VIAL IV SCH ×2 (08:48→20:06)
[2020-04-04] MEDS: MONTELUKAST SODIUM 10 MG TAB PO SCH (08:48)
[2020-04-04] MEDS: CEFEPIME 1GM/NS 0.9% 50 ML 50 ML IV SCH ×2 (08:48→20:07)
[2020-04-04] MEDS ORDERED: PANTOPRAZOLE SOD 40 MG TABEC PO SCH (09:00)
--- NOTE | 2020-04-04 09:08 | Diagnostic Imaging Report ---
EXAMINATION: CHEST 2 VIEWS INDICATION: Shortness of breath COMPARISON: None FINDINGS: PA and lateral views TUBES and LINES: None. LUNGS: Interval decrease in interstitial opacities when compared to the previous study. New atelectasis along the left major and right minor fissures. PLEURA: No pleural effusion or pneumothorax. HEART AND MEDIASTINUM: The cardiomediastinal silhouette is unremarkable. BONES AND SOFT TISSUES: No acute osseous lesion. Soft tissues are unremarkable. UPPER ABDOMEN: No free air under the diaphragm. IMPRESSION: Interval decrease in pulmonary interstitial opacities suggestive of decreased interstitial edema and/or improvement of atypical infection. Signed by: Marquez Nova MD on 04/04/2020 9:05 AM
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
--- NOTE | 2020-04-04 13:09 | Progress Note ---
DATE: 04/04/2020 Medicine Progress Note SUBJECTIVE: The patient reports feeling much better today. She is still on nasal cannula. CT chest has been ordered by Pulmonary. Diuretics have been ordered by Cardiology. PHYSICAL EXAMINATION: VITAL SIGNS: Temperature is 98.1, pulse 70, respiratory rate is 20, blood pressure 131/95, and pulse ox 98% on 2 L nasal cannula. GENERAL: Not in acute distress. Alert and oriented x3. Cooperative on examination. PULMONARY: Clear to auscultation bilaterally. No wheezing, no rales, no rhonchi, no crackles appreciated. CARDIOVASCULAR: Positive S1 and S2. No murmurs, rubs, or gallops appreciated. ABDOMEN: Soft, nondistended, and nontender to palpation. Bowel sounds present. MUSCULOSKELETAL: Strength is 5/5 throughout. No evidence of any muscle deficits on examination. No weakness appreciated. NEUROLOGIC: Cranial nerves 2 through 12 grossly intact. No evidence of any neurological deficits on exam. SKIN: Intact. Warm to touch. Good cap refill. PSYCHIATRIC: Normal affect and mood. EXTREMITIES: No edema. Good range of motion throughout. LABORATORY FINDINGS: Show white count was 10.6, hemoglobin 14, hematocrit is 44, and platelets of 174. Chemistry; sodium 139, potassium 4, chloride 98, bicarb 33, anion gap of 12, BUN is 31, and creatinine is 1.31. Lactic acid 1.9, improved. Coronavirus not detected. Blood cultures no growth. IMAGING STUDIES: Chest x-ray this morning shows interval decrease in pulmonary interstitial opacity, suggestive of decreased interstitial edema. IMPRESSION: 1. Acute exacerbation of chronic obstructive pulmonary disease-continue with DuoNeb treatments, antibiotics, steroids, and Advair. CT chest ordered. A.m. chest x-ray. Pulmonary consult. 2. Acute exacerbation of congestive heart failure with systolic and diastolic dysfunction-diuretics, cardioprotective medications. Cardiology consulted. Discussed case with Cardiology. The patient is very noncompliant with her diuretics and medications at home. In fact, she did not purchase any of her Lasix that was ordered by either her [facility] specialist as well from the other hospital, which she was recently discharged from. 3. Hypertension-continue with same antihypertensive medications, p.r.n. hydralazine. 4. History of anxiety-continue with her Xanax. 5. History of cerebrovascular accident, on anticoagulation. Continue with warfarin. Current INR 2.2, within normal range. Continue with Coumadin at the same dose for now. INR was therapeutic range. 6. Nutrition-heart healthy. 7. PT/OT evaluation. 8. Warfarin for deep venous thrombosis prophylaxis. 9. Consultants: Pulmonary Critical Care and Cardiology. MD HERRERA Virk/MODL /[id number]
--- NOTE | 2020-04-04 13:10 | NUR ---
Discontinuing PT services since patient is independent in functional mobility.Thank you Addendum: 04/04/20 at 1311 by Jean-Claude ridley PT Amended: Links added.
--- NOTE | 2020-04-04 13:44 | Consultation ---
DATE OF CONSULTATION: Cardiology Consultation ADDITIONAL ATTENDING PHYSICIAN: Dr. Young. Ms. Pena is a complex 64-year-old woman known to me for many years, who presented to the emergency room in the evening of the with a complaint of shortness of breath. HISTORY OF PRESENT ILLNESS: The patient was discharged from [facility] [place] on March 28, 2020, where she had been hospitalized for pneumonia and COPD. Apparently, congestive failure as well. She reports she was discharged with steroids and that she had furosemide 40 mg daily at home, although I had sent under a pharmacy, she did not pick that up. 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 Repeated carotid Doppler scans have shown some reperfusion of the right carotid artery and as mentioned before, she was hospitalized at [facility] [place] in January and March of this year for COPD and pneumonia. FAMILY HISTORY: Father with heart disease. PERSONAL AND SOCIAL HISTORY: The patient has been smoking continuously since her teenage years, which would be almost 50 years. HOME MEDICATIONS: Lipitor 80 mg daily, omeprazole 20 mg daily, Nasonex, carvedilol 12.5 twice a day, captopril 12.5 twice a day, and Singulair. She also uses Advair. She has been using warfarin 5 mg daily since her stroke prescribed by the neurologist and aspirin 81 mg daily. ALLERGIES: SHE HAS NO KNOWN ALLERGIES. PHYSICAL EXAMINATION: GENERAL: At this time shows an obese, white woman, who is alert and responsive. VITAL SIGNS: Blood pressure 131/90, pulse 70 and regular. HEAD, EYES, EARS, NOSE, AND THROAT: Relatively unremarkable. NECK: There are faint carotid bruits. THORAX: Heart sounds S1 and S2 are equal. No murmurs. LUNGS: Have scattered rhonchi. ABDOMEN: Protuberant. EXTREMITIES: No edema. LABORATORY DATA: Initial presenting white cell count was 21.8 thousand, but repeat 10.6. INR 2.2. Lactic acid was 3.3, suggesting infection or sepsis. BNP 103. ASSESSMENT: 1. Bronchospasm/chronic obstructive pulmonary disease. 2. Recent pneumonia. 3. Congestive heart failure with previous myocardial infarctions and coronary stenting. PLAN: Agree with current management and recommend continued diuresis. We will check echocardiogram and further management based on clinical course. MD ARMINDA Dunbar/GHASSAN /[id number] cc: Jacqueline Moraes MD
--- NOTE | 2020-04-04 15:28 | Diagnostic Imaging Report ---
EXAM: CT Chest WITHOUT intravenous contrast 04/04/2020 12:15 PM INDICATION: ^shortness of breath ^[id number] ^1215 COMPARISON: X-ray dated the same day TECHNIQUE: Chest was scanned utilizing a multidetector helical scanner from the lung apex through the level of the adrenal glands without administration of IV contrast. Coronal and sagittal reformations were obtained. Routine protocol was performed. IV CONTRAST: None RADIATION DOSE: Total DLP: 563 mGy*cm. Dose modulation, iterative reconstruction, and/or weight based adjustment of the mA/kV was utilized to reduce the radiation dose to as low as reasonably achievable. COMPLICATIONS: None FINDINGS: LINES/ TUBES: None. LUNGS AND AIRWAYS: Large airways are patent. There is nonspecific pleural based scarring and groundglass opacities within the anterior aspects of the upper lobes. No focal consolidation is noted. Right basilar scarring is noted. No suspicious pulmonary nodule or mass is identified. PLEURA: The pleural spaces are clear. HEART AND MEDIASTINUM: The thyroid gland is normal. No mediastinal, hilar or axillary lymphadenopathy. The heart is normal in size.. There is no pericardial effusion. Coronary artery calcifications are noted. Stent is noted within the LAD. UPPER ABDOMEN: None BONES: No acute osseous abnormality. Mild to moderate multilevel degenerative changes of the spine are noted. SOFT TISSUES: Unremarkable. IMPRESSION: Nonspecific pleural-based scarring and groundglass opacities within the anterior portions of the bilateral upper lobes. Findings could relate to resolving infection versus recent inhalational insult. Consider follow-up CT chest in 6-12 months to assess for resolution. Signed by: Pete Claudio MD on 04/04/2020 3:25 PM
--- NOTE | 2020-04-04 15:55 | NUR ---
Nutrition Screen Note RD Recommendation for Physician: -Continue current diet as ordered Plan of Care: RD following, monitoring for tolerance and adequacy Nutrition reason for involvement: diagnosis - CHF Primary Diagnose(s): acute exacerbation of CHF PMH: Hypertension, morbid obese, COPD, history of heart failure, acid reflux, and anxiety. History of CVA in the past, on anticoagulation therapy due to cerebral stenosis, CKD Ht: 64 in Wt: 156 lb BMI: 26.8 kg/m2 IBW:[address] Assessment: (04/04/20) Chart reviewed. Labs and meds reviewed. Pt is a 64 year old female admitted with acute exacerbation of CHF. Pt reports she is eating most of her meals. Pt mentioned her weight usually fluctuates due to fluid. No N/V, but pt reports constipation. No chewing/swallowing issues. Will continue to monitor. Current Diet: cardiac Malnutrition Evaluation (04/04/20) The patient does not meet criteria for a specified degree of malnutrition at this time. Will re-evaluate at follow-up as appropriate. Diet Education Needs Assessment: Pt declined the need for diet education Nutrition Care Level: low Signed: Glenis Lund, RD, LD
[2020-04-04] MEDS ORDERED: WARFARIN SOD 5 MG TAB PO SCH (17:00)
[2020-04-05 03:00] VITALS: BP 102/54
[2020-04-05 05:06] LABS: BASOPHILS % 0.4 % (0.0-1.0); EOSINOPHILS # (AUTO) 0.5 (0.0-0.4); EOSINOPHILS % 5.6 % (0.0-6.0); HEMATOCRIT 43.1 % (34.2-44.1); HEMOGLOBIN 13.7 g/dL (12.0-16.0); LYMPHOCYTES # (AUTO) 1.9 (1.0-3.2); LYMPHOCYTES % 20.6 % (18.0-39.1); MEAN CORPUSCULAR HEMOGLOBIN 30.6 pg (28-32); MEAN CORPUSCULAR HGB CONC 31.8 g/dL (31-35); MEAN CORPUSCULAR VOLUME 96.4 fL (81-99); MONOCYTES # (AUTO) 0.7 (0.2-0.8); MONOCYTES % 7.9 % (4.4-11.3); PLATELET COUNT 179 x10e3/uL (140-360); RED BLOOD COUNT 4.47 x10e6/uL (3.6-5.1); RED CELL DISTRIBUTION WIDTH 15.3 % (11.7-14.4)
[2020-04-05 05:17] LABS: INR 1.81; PROTHROMBIN TIME 21.9 seconds (11.9-14.5)
[2020-04-05 05:26] LABS: ALBUMIN 3.3 g/dL (3.5-5.0); ALBUMIN/GLOBULIN RATIO 1.3 (0.8-2.0); ANION GAP 11.9 mmol/L (8-16); CALCIUM 8.3 mg/dL (8.4-10.2); CREATININE, SERUM 1.24 mg/dL (0.57-1.11); POTASSIUM 3.9 mmol/L (3.5-5.1)
[2020-04-05] MEDS: ALPRAZOLAM 0.25 MG TAB PO SCH ×2 (06:00→12:23)
[2020-04-05] MEDS: SALMETEROL/FLUTICASONE 250/50 INH SCH (07:00)
[2020-04-05 08:00] VITALS: BP 129/70
[2020-04-05] MEDS: PANTOPRAZOLE SOD 40 MG TABEC PO SCH (08:27)
[2020-04-05] MEDS: FUROSEMIDE INJ 10 MG/ML 4 ML VIAL IV SCH (08:27)
[2020-04-05] MEDS: MONTELUKAST SODIUM 10 MG TAB PO SCH (08:28)
[2020-04-05] MEDS: CEFEPIME 1GM/NS 0.9% 50 ML 50 ML IV SCH (08:28)
[2020-04-05] MEDS: CAPTOPRIL 25 MG TAB PO SCH ×2 (08:28→15:00)
[2020-04-05] MEDS: ATORVASTATIN 40 MG TAB PO SCH (08:28)
[2020-04-05] MEDS: CARVEDILOL 12.5 MG TAB PO SCH (08:28)
[2020-04-05] MEDS: DOXYCYCLINE HYCLATE TABLET 100 MG TAB PO SCH (08:28)
[2020-04-05 08:29] VITALS: BP 129/70
[2020-04-05 09:08] VITALS: BP 129/70
--- NOTE | 2020-04-05 09:09 | Diagnostic Imaging Report ---
X-ray chest frontal view History: Shortness of breath Comparison: 04/04/2020 and 04/03/2020 Findings: Lines and tubes: None Central airways: Unremarkable Cardiac silhouette: Unremarkable Mediastinal silhouettes: Unremarkable Pleura: No pleural effusion, pneumothorax or thickening Diaphragms: Unremarkable Lungs: Significant improvement in bilateral pulmonary interstitial infiltrates Skeletal structures: Unremarkable Extrathoracic soft tissues: Unremarkable Impression: Near resolution of bilateral pulmonary infiltrates. The time course favors hydrostatic process such as edema over an infectious/inflammatory process. Clinical correlation is recommended. Signed by: Sam Mathew MD on 04/05/2020 9:05 AM
--- NOTE | 2020-04-05 11:48 | Progress Note ---
DATE: SUBJECTIVE: The patient is breathing much better. Denies any complaints of chest pain, nausea, or vomiting. PHYSICAL EXAMINATION: VITAL SIGNS: Temperature 98.4, pulse of 63, blood pressure 129/70, respiratory rate of 18, and O2 saturation 100% on room air. HEENT: Head is atraumatic and normocephalic. CHEST: Clear to auscultation bilaterally. No wheezing. HEART: S1 and S2 audible. NEUROLOGIC: Awake and alert. LABORATORY DATA: Reviewed. Creatinine 1.24. White count of 9.4 and hemoglobin 13.7. ASSESSMENT/PLAN: Ms. Pena is a 64-year-old female presented to the emergency room with complaints of shortness of breath and fluid overload, status post fluid overload. The patient is breathing much better now. The patient has home oxygen, possibly has chronic obstructive pulmonary disease, has history of smoking, and can follow up with me as an outpatient. MD RAY Garza/GHASSAN /[id number]
[2020-04-05 12:00] VITALS: BP 128/64
[2020-04-05] MEDS ORDERED: ONDANSETRON HCL 4 MG ORAL DISINTEGRATING TAB PO PRN (14:30)
[2020-04-05 16:00] VITALS: BP 133/77
--- NOTE | 2020-04-05 16:45 | NUR ---
Patient discharged home at this time. AAOX4, resp even and unlabored on room air, no s/s distress noted, no c/o pain. IVs d/c'd with tip intact. Discharge paperwork and prescriptions given to patient, no questions noted at this time. Patient educated on CHF care, including the importance of taking lasix and daily weights. Patient verbalized understanding. Patient ambulated without assistance to private auto.
--- NOTE | 2020-04-06 22:33 | Discharge Summary ---
FINAL DISCHARGE DIAGNOSES: 1. Acute exacerbation of chronic obstructive pulmonary disease. 2. Acute exacerbation of congestive heart failure with systolic and diastolic dysfunction. 3. Hypertension. 4. History of anxiety. 5. History of cerebrovascular accident, on anticoagulation. CONSULTANTS: Pulmonary Critical Care and cardiology. PHYSICAL EXAMINATION: VITAL SIGNS: Temperature is 98.1, pulse 63, respiratory rate 20, blood pressure 133/77, pulse ox 100% on room air. LABORATORY FINDINGS: Show white count of 9.4, hemoglobin 13.7, hematocrit 43, platelets of 179. Coagulation; PT is 21.9, INR 1.81. Chemistry; sodium 137, potassium 3.9, chloride 97, bicarb 32, anion gap of 11, BUN is 30, creatinine is 1.24, glucose is 114, calcium is 8.3, phosphorus is 3.3, magnesium 1.8, total bilirubin 0.7, AST 14, ALT 21, alkaline phosphatase 47, albumin was 3.3. Lipase level was 52. Blood gas; VBG pH is 7.29, pCO2 of 66, PO2 96, bicarb is 32. Serology; coronavirus not detected. MICROBIOLOGY: Blood cultures no growth to date. IMAGING STUDIES: Chest x-ray showed interstitial edema, possible underlying atypical infection. Chest x-ray repeat shows decreased interval interstitial opacities. CT of the chest without contrast shows a nonspecific pleural-based scarring and volume loss in the anterior portion of the bilateral upper lobes. Findings could relate to resolving infection versus recent inhalation insult. Repeat CT in 6 to 12 months for resolution. Chest x-ray prior to discharge showed near resolution of bilateral pulmonary infiltrates. HOSPITAL COURSE: This is a 64-year-old female, morbidly obese, came into the ED with underlying shortness of breath. The patient has a history of COPD and underlying heart failure. The patient is very noncompliant with her diuretics at home as well as her cardioprotective medications including her inhalers. In relation to her COPD, I did consult with Pulmonary in which he recommended continue with valente Sethi treatments and she was on antibiotics while here in the hospital stay including some steroids. Pulmonary did not recommend any steroids on discharge. She was stable prior to being discharged. In fact, she was on room air and did not qualify for home O2. She was breathing well with no other issues. I did consult with Cardiology. She maintained on cardioprotective medications and IV diuretics. The patient was very noncompliant with her cardioprotective medications, her Lasix and did not pick them up from the pharmacy. Cardiology confirms the patient is very noncompliant with any of her diuretics. The patient also has a history of anxiety, likely a component of her underlying shortness of breath. She was stable prior to being discharged to home. She was alert, awake, and oriented, breathing well with no issues. She was cleared for discharge by Cardiology and Pulmonary. The patient did not qualify for home O2. She was on room air prior to being discharged. On the day of discharge, vital signs were stable. Labs reviewed and stable. The patient is seen and evaluated and examined thoroughly on the day of discharge. No other complaints. The patient verbalized understanding and agrees to plan of care to follow up as an outpatient with the primary care physician in 1 week and Pulmonary and Cardiology in 1 to 2 weeks' time. MEDICATIONS: See med reconciliation form. DISPOSITION: Home. CONDITION: Stable. DIET: Heart healthy. In the event of any worsening symptoms, the patient was advised to come back to the ED for further evaluation. Discharge summary took greater than 35 minutes. MD HERRERA Virk/GHASSAN /[id number]
== END 2020-04-05 17:11 | disposition still patient (30) | DRG 292 ==
LOC: ER 08:26 → ERHOLD 12:23 → IMCU 13:00
PROVIDERS: ADMIT Internal Medicine; ATTEND Internal Medicine
DX: I11.0 Hypertensive heart disease with heart failure (principal); J44.1 Chronic obstructive pulmonary disease with (acute) exacerbation; I50.43 Acute on chronic combined systolic (congestive) and diastolic (congestive) heart failure; Z86.73 Personal history of transient ischemic attack (TIA), and cerebral infarction without residual deficits; F41.9 Anxiety disorder, unspecified; Z20.828 Contact with and (suspected) exposure to other viral communicable diseases; I25.2 Old myocardial infarction; Z95.5 Presence of coronary angioplasty implant and graft; Z87.01 Personal history of pneumonia (recurrent); F17.290 Nicotine dependence, other tobacco product, uncomplicated; Z79.01 Long term (current) use of anticoagulants; Z91.14 Patient's other noncompliance with medication regimen
CPT/HCPCS: 36415; 36600; 71045; 71046; 71250; 80048; 80053; 83605; 83690; 83735; 83880; 84100; 84484; 85025; 85610; 87040; 93005; 93306; 94640; 94660; 99251; 99284; J0692; J1650; J1940; J2405; J7050; U0002

== ENCOUNTER 2020-04-06 07:35 | Inpatient (IN) | payer BC ==
[~2020-04-06] VITALS: Ht 162.6 cm; Wt 91.6 kg
[2020-04-06 08:25] LABS: BASOPHILS # (AUTO) 0.1 (0.0-0.1); BASOPHILS % 0.4 % (0.0-1.0); EOSINOPHILS # (AUTO) 0.2 (0.0-0.4); EOSINOPHILS % 1.6 % (0.0-6.0); HEMATOCRIT 47.9 % (34.2-44.1); HEMOGLOBIN 15.5 g/dL (12.0-16.0); LYMPHOCYTES # (AUTO) 1.5 (1.0-3.2); LYMPHOCYTES % 10.9 % (18.0-39.1); MEAN CORPUSCULAR HEMOGLOBIN 31.1 pg (28-32); MEAN CORPUSCULAR HGB CONC 32.4 g/dL (31-35); MEAN CORPUSCULAR VOLUME 96.2 fL (81-99); MONOCYTES # (AUTO) 0.7 (0.2-0.8); MONOCYTES % 5.1 % (4.4-11.3); NEUTROPHILS # (AUTO) 11.1 (2.1-6.9); NEUTROPHILS % 80.5 % (38.7-80.0); PLATELET COUNT 227 x10e3/uL (140-360); RED BLOOD COUNT 4.98 x10e6/uL (3.6-5.1); RED CELL DISTRIBUTION WIDTH 14.9 % (11.7-14.4)
--- NOTE | 2020-04-06 08:38 | Diagnostic Imaging Report ---
EXAMINATION: CHEST SINGLE (PORTABLE) INDICATION: ^Y ^sob COMPARISON: Multiple prior chest x-rays including most recent on 04/05/2020. CT scan on 04/04/2020. FINDINGS: TUBES and LINES: None. LUNGS: Normal lung volumes. There is mild interstitial prominence throughout both lungs. There is bibasilar atelectasis. No focal consolidations. PLEURA: No pleural effusion or pneumothorax. HEART AND MEDIASTINUM: The cardiomediastinal silhouette is unchanged. BONES AND SOFT TISSUES: No acute osseous lesion. Soft tissues are unremarkable. UPPER ABDOMEN: No free air under the diaphragm. IMPRESSION: 1. Mild interstitial prominence throughout both lungs likely reflect pulmonary vascular congestion without. No bianca edema. 2. Bibasilar atelectasis. No focal consolidation, pleural effusion or pneumothorax. Signed by: Juan Mckeon MD on 04/06/2020 8:34 AM
[2020-04-06 08:43] LABS: ALBUMIN 3.7 g/dL (3.5-5.0); CALCIUM 8.7 mg/dL (8.4-10.2); CREATININE, SERUM 1.14 mg/dL (0.57-1.11)
[2020-04-06 08:50] LABS: CREATINE KINASE MB 1.6 ng/mL (0-5.0)
--- NOTE | 2020-04-06 09:33 | Emergency Department Note ---
History of Present Illnes History of Present Illness Chief Complaint: Respiratory History of Present Illness This is a 64 year old female arrived to the ED with complaints of continued shortness of breath after recent discharge. Chief Complaint Comment Patient in from home via EMS with complaints of shortness of breath at home. Per patient, she was just discharged yesterday from this facility after an admission for the same complaint. EMS reports that the patient had an oxygen saturation of 65% on room air on scene and was hypertensive at 212/110. Patient was given 324mg of aspirin and an inch of nitro paste enroute to the ER. Patient is now 95% on 10L via mask with a blood pressure of 153/81. No complaints of chest pain. ER MD at bedside for initial eval. Historian: Patient, Fha Underwriter/EMS Arrival Mode: [facility] [employer]: O2, Aspirin Onset (how long ago): day(s) Radiation: Reports non-radiation Severity: mild Duration (how long): day(s) Progression: worsening Chronicity: new Relieving factors: none Exacerbating factors: none Past Medical/Family History Physician Review I have reviewed the patient's past medical and family history. Any updates have been documented here. Past Medical History Recent Fever: No Clinical Suspicion of Infectio: No New/Unexplained Change in Ment: No Past Medical History: Hypertension, COPD, CHF, Hyperlipedemia Other Surgery: CARDIAC STENTS BLADDER SLING Social History Smoking Cessation: Former smoker Alcohol Use: None Any Illegal Drug Use: No Other Last Tetanus: UNK Any Pre-Existing Lines (PICC,: No Review of Systems Review of Systems Constitutional: Reports no symptoms EENTM: Reports no symptoms Cardiovascular: Reports no symptoms Respiratory: Reports as per HPI, Reports dyspnea Gastrointestinal: Reports no symptoms Genitourinary: Reports no symptoms Musculoskeletal: Reports no symptoms Integumentary: Reports no symptoms Neurological: Reports no symptoms Psychological: Reports no symptoms Endocrine: Reports no symptoms Hematological/Lymphatic: Reports no symptoms Physical Exam Related Data Allergies: Coded Allergies: No Known Allergies (Unverified , 07/28/14) Triage Vital Signs Vital Signs Date Time Temp Pulse Resp B/P (MAP) Pulse Ox O2 Delivery O2 Flow Rate FiO2 04/06/20 07:37 93 22 153/81 95 Mask 10.0 Vital signs reviewed: Yes Physical Exam CONSTITUTIONAL Constitutional: Present well-developed, Present well-nourished, Present obese, Present ill appearing HENT HENT: Present normocephalic, Present atraumatic, Present oropharynx clear/moist, Present nose normal HENT L/R: Present left ext ear normal, Present right ext ear normal EYES Eyes: Reports PERRL, Reports conjunctivae normal NECK Neck: Present ROM normal PULMONARY Pulmonary: Present effort normal, Present respiratory distress CARDIOVASCULAR Cardiovascular: Present regular rhythm, Present heart sounds normal, Present capillary refill normal, Present normal rate GASTROINTESTINAL Abdominal: Present soft, Present nontender, Present bowel sounds normal GENITOURINARY Genitourinary: Present exam deferred SKIN Skin: Present warm, Present dry MUSCULOSKELETAL Musculoskeletal: Present ROM normal NEUROLOGICAL Neurological: Present alert, Present oriented x 3, Present no gross motor or sensory deficits PSYCHOLOGICAL Psychological: Present mood/affect normal, Present judgement normal Results Laboratory Result Diagram: 04/06/20 0811 04/06/20 0811 Laboratory Laboratory Tests Test 04/06/20 08:48 04/06/20 08:11 04/06/20 07:46 Lactic Acid Level 1.7 mmol/L (0.5-2.0) White Blood Count 13.79 x10e3/uL (4.8-10.8) Red Blood Count 4.98 x10e6/uL (3.6-5.1) Hemoglobin 15.5 g/dL (12.0-16.0) Hematocrit 47.9 % (34.2-44.1) Mean Corpuscular Volume 96.2 fL (81-99) Mean Corpuscular Hemoglobin 31.1 pg (28-32) Mean Corpuscular Hemoglobin Concent 32.4 g/dL (31-35) Red Cell Distribution Width 14.9 % (11.7-14.4) Platelet Count 227 x10e3/uL (140-360) Neutrophils (%) (Auto) 80.5 % (38.7-80.0) Lymphocytes (%) (Auto) 10.9 % (18.0-39.1) Monocytes (%) (Auto) 5.1 % (4.4-11.3) Eosinophils (%) (Auto) 1.6 % (0.0-6.0) Basophils (%) (Auto) 0.4 % (0.0-1.0) Neutrophils # (Auto) 11.1 (2.1-6.9) Lymphocytes # (Auto) 1.5 (1.0-3.2) Monocytes # (Auto) 0.7 (0.2-0.8) Eosinophils # (Auto) 0.2 (0.0-0.4) Basophils # (Auto) 0.1 (0.0-0.1) Absolute Immature Granulocyte (auto 0.21 x10e3/uL (0-0.1) Sodium Level 138 mmol/L (136-145) Potassium Level 5.0 mmol/L (3.5-5.1) Chloride Level 98 mmol/L (98-107) Carbon Dioxide Level 28 mmol/L (22-29) Anion Gap 17.0 mmol/L (8-16) Blood Urea Nitrogen 26 mg/dL (7-26) Creatinine 1.14 mg/dL (0.57-1.11) Estimat Glomerular Filtration Rate 48 ML/MIN (60-) BUN/Creatinine Ratio 23 (6-25) Glucose Level 133 mg/dL (74-118) Calcium Level 8.7 mg/dL (8.4-10.2) Total Bilirubin 0.8 mg/dL (0.2-1.2) Aspartate Amino Transf (AST/SGOT) 30 IU/L (5-34) Alanine Aminotransferase (ALT/SGPT) 29 IU/L (0-55) Alkaline Phosphatase 59 IU/L (40-150) Creatine Kinase 55 IU/L (29-168) Creatine Kinase MB 1.60 ng/mL (0-5.0) Troponin I 0.018 ng/mL (0-0.300) B-Type Natriuretic Peptide 38.2 pg/mL (0-100) Total Protein 7.3 g/dL (6.5-8.1) Albumin 3.7 g/dL (3.5-5.0) Globulin 3.6 g/dL (2.3-3.5) Albumin/Globulin Ratio 1.0 (0.8-2.0) Lab results reviewed: Yes Imaging Imaging results reviewed: Yes Impressions IMPRESSION: 1. No evidence of pulmonary embolism to the segmental levels. 2. Redemonstration of nonspecific pleural-based scarring and groundglass opacities within the anterior aspect of the upper lobes. No focal consolidation, pleural effusion or pneumothorax. Findings could be related to resolving infection versus recent inhalational insult. Consider follow-up CT in 6-12 months to assess for resolution as previously recommended. Critical Care Time Total Critical Care Time (min): 65 Critical care time exclusive o: separately billable procedures Critcal care necessary due to: respiratory failure Critcal care time spent by me: interpret cardiac output measures, evaluation patient response to tx, examination of patient, order/review laboratory studies, order/review radiographic studies, pulse oximetry, re-evaluation of patient condition Assessment & Plan Medical Decision Making MDM 64-year-old female arrives to the ED in marked respiratory distress, patient arrived on BiPAP and required BiPAP while initially the ED- reason for BiPAP was due to COPD and this is not an organ dysfunction. No source of infectious etiology present, however, patient was empirically covered with antibiotics prophylactically by inpatient attending. Assessment & Plan Final Impression: (1) Acute respiratory distress Depart Disposition: ADMITTED Last Vital Signs Date Time Temp Pulse Resp B/P (MAP) Pulse Ox O2 Delivery O2 Flow Rate FiO2 04/06/20 08:49 80 23 114/72 96 04/06/20 07:37 Mask 10.0 Home Meds Reported Medications [Potassium] No Conflict Check 03/03/16 Benzonatate (BENZONATATE) 100 Mg Capsule, 100 MG PO Q6HR PRN for COUGH, CAP 03/03/16 Alprazolam (ALPRAZOLAM) 0.25 Mg Tablet, 0.25 MG PO Q6HR, TAB 03/03/16 Albuterol Sulfate (ALBUTEROL SULFATE HFA) 8.5 Gm Hfa.aer.ad, 2 INH INH PRN 07/28/14 Montelukast Sodium (SINGULAIR) 10 Mg Tablet, 10 MG PO DAILY 07/28/14 Omeprazole (OMEPRAZOLE) 40 Mg Capsule.dr, 20 MG PO DAILY 07/28/14 Warfarin Sodium (COUMADIN) 5 Mg Tablet, 5 MG PO 1700, #30 TAB 07/28/14 Carvedilol (CARVEDILOL) 12.5 Mg Tablet, 12.5 MG PO BID, #60 TAB 07/28/14 Captopril (CAPTOPRIL) 25 Mg Tablet, 12.5 MG PO TID, TAB 07/28/14 Atorvastatin Calcium (ATORVASTATIN CALCIUM) 20 Mg Tablet, 80 MG PO DAILY 07/28/14 Fluticasone/Salmeterol (ADVAIR 250-50 DISKUS) 1 Each Disk.w.dev 07/28/14 Medications in the ED Methylprednisolone Sodium Succinate 125 mg ONCE ONCE IV ; Start 04/06/20 at 09:45; Stop 04/06/20 at 09:46 Albuterol/ Ipratropium 9 ml ONCE ONCE NEB ; Start 04/06/20 at 09:45; Stop 04/06/20 at 09:46 KELLY CHOI DO Apr 06, 2020 09:33
[2020-04-06] MEDS ORDERED: ALBUTEROL/IPRATROPIUM 3 ML NEB NEB ONE (09:45)
[2020-04-06] MEDS ORDERED: METHYLPREDNISOLONE SOD SUCC 125 MG/2ML VIAL IV ONE (09:45)
--- OUTSIDE RECORDS SUMMARY | 2020-04-06 10:34 | XMS REPORT | Clinical Summary ---
Author Author [facility] Organization [facility] Address Unknown Phone Unavailable Care Team Providers Care Government Employee Name Role Phone Asked, No Pcp PCP [...] 01/05/2020 Hospital Cardiology - Encounter 01/10/2020 after 04/06/2019 Surgical History Surgery Date Site/Laterality Comments STENT [...] WITH INR STAT 01/09/2020 3:17 PM CDT [id number] [id number] Routine 01/09/2020 3:16 PM CDT ECG [...] AM CDT RESPIRATORY PATHOGEN Routine 01/07/2020 PANEL WITH COVID-19 8:55 PM CDT TTE COMPLETE, W CONTRAST, [...] PRELIMINARY Routine 01/05/2020 INTERPRETATION 6:22 PM CDT OK CRITICAL CARE, E/M Routine 01/05/2020 30-74 MINUTES 6:22 PM CDT ECG 12-LEAD Routine 01/05/2020 6:20 PM CDT after 04/06/2019 Results * Estimated GFR (01/10/2020 6:00 AM CDT) Only the most recent of 6 results within the time period is included. Pathologist [facility] Estimated GFR 66 mL/min/1.73 m2 [place] Comment: [facility] Interpretation G1 >=90 Normal or high G2 [...] Organization Address City/State/ZIP Code P adrien Number [facility] DEPARTMENT OF [address] [place] [address] PATHOLOGY AND GENOMIC MEDICINE [address] * CBC with platelet and differential (01/10/2020 6:00 AM CDT) Only the most recent of 6 results within the time period is included. Pathologist [facility] WBC 13.38 (H) 4.50 - 11.00 k/uL [facility] RBC 4.68 4.20 - 5.50 m/uL [facility] HGB 14.5 12.0 - 16.0 g/dL [facility] HCT 44.4 37.0 - 47.0 % [facility] MCV 94.9 82.0 - 100.0 fL [facility] MCH 31.0 27.0 - 34.0 pg [facility] MCHC 32.7 31.0 - 37.0 g/dL [facility] RDW - SD 50.4 37.0 - 55.0 fL [facility] MPV 11.0 8.8 - 13.2 fL [facility] Platelet count 201 150 - 400 k/uL [facility] Nucleated RBC 0.00 /100 WBC [facility] Neutrophils 80.6 (H) 39.0 - 69.0 % [facility] Lymphocytes 10.5 (L) 25.0 - 45.0 % [facility] Monocytes 7.5 0.0 - 10.0 % [facility] Eosinophils 0.1 0.0 - 5.0 % [facility] Basophils 0.2 0.0 - 1.0 % [facility] Immature 1.1 (H)Comment: "Immature 0.0 - 1.0 % [facility] granulocytes granulocytes" (promyelocytes, METHOD IST myelocytes, metamyelocytes) HOSPITAL Specimen Blood Performing Organization Address City/State/ZIP Code P adrien Number [facility] DEPARTMENT OF [address] [place] [address] PATHOLOGY AND GENOMIC MEDICINE [address] * Comprehensive metabolic panel (01/10/2020 6:00 AM CDT) Only the most recent of 6 results within the time period is included. Sodium 140 135 - 148 mEq/L [facility] Potassium 4.4 3.5 - 5.0 mEq/L [facility] Chloride 96 (L) 98 - 112 mEq/L [facility] CO2 29 24 - 31 mEq/L [facility] Anion gap 15@ANIO 7 - 15 mEq/L [facility] BUN 27 (H) 8 - 23 mg/dL [facility] Creatinine 0.93 (H) 0.50 - 0.90 mg/dL [facility] Glucose 113 (H) 65 - 99 mg/dL [facility] Calcium 9.4 8.8 - 10.2 mg/dL [facility] Protein 6.5 6.3 - 8.3 g/dL [place] Comment: [facility] [place] 4.6-7.0 g/dL 1 week 4.4-7.6 g/dL 7 months-1year 5.1-7.3 g/dL 1-2 years 5.6-7.5 g/dL >3 years 6.0-8.0 g/dL 18-150 6.3-8.3 g/dL Albumin 3.3 (L) 3.5 - 5.0 g/dL [facility] A/G ratio 1.0 0.7 - 3.8 [facility] Alkaline 52 35 - 104 U/L [place] phosphatase [facility] AST 24 10 - 35 U/L [facility] ALT 30 5 - 50 U/L [facility] Total bilirubin 0.3 0.0 - 1.2 mg/dL [facility] Specimen Blood Performing Organization Address City/[facility] Code P adrien Number [facility] [place] [address] PATHOLOGY AND GENOMIC MEDICINE [address] * Prothrombin time with INR (01/09/2020 3:17 PM CDT) Only the most recent of 2 results within the time period is included. [facility] Prothrombin 13.4 11.5 - 14.5 sec [facility] INR 1.0 [place] Comment: [facility] The International Normalized HOSPITAL Ratio (INR) is a therapeutic monitoring tool for patients who are stable on oral anticoagulant therapy. An INR of 2.0-3.0 is suggested for deep vein thrombosis/pulmonary embolism. Specimen Blood Performing Organization Address City/[facility] [place] [address] PATHOLOGY AND GENOMIC MEDICINE [address] * Qost-QYQJ-QcM-2 IgG (01/09/2020 3:16 PM CDT) Pathologist [facility] Xcnw-LPVI-PdP-2 Non-reactive Non-reactive [place] IgG Comment: [facility] This test should not be used HOSPITAL [...] Organization Address City/State/ZIP Code P adrien Number [facility] DEPARTMENT OF [address] [place] [address] PATHOLOGY AND GENOMIC MEDICINE [place] [facility] [address] [place] [address] * ECG 12 lead (01/09/2020 9:21 AM CDT) Only the most recent of 3 results within the time period is included. Ventricular 61 [facility] MUSE rate Atrial rate 61 [facility] MUSE OK interval 144 [facility] MUSE QRSD interval 104 [...] is n ot available. Performing Organization Address City/[facility]/ZIP Code P adrien Number [facility] MUSE [address] [place] [address] * Interleukin 6 (01/09/2020 4:00 AM CDT) Only the most recent of 4 results within the time period is included. Pathologist [facility] Interleukin 6 <2.5 0.0 - 10.5 pg/mL [place] Comment: [facility] This test has not been FDA HOSPITAL [...] revoked sooner. Specimen Blood Performing Organization Address [facility] [place] [address] PATHOLOGY AND GENOMIC MEDICINE [place] [facility] [address] [place] [address] * D-dimer (01/09/2020 4:00 AM CDT) Only the most recent of 4 results within the time period is included. D-dimer <0.27 0.00 - 0.40 ug/mL [place] Comment: FEU [facility] Units are ug/ml Fibrinogen HOSPITAL Equivalent Unit. [...] Organization Address City/State/ZIP Code P adrien Number [facility] DEPARTMENT OF [address] [place] [address] PATHOLOGY AND GENOMIC MEDICINE [address] * C-reactive protein (01/09/2020 4:00 AM CDT) Only the most recent of 4 results within the time period is included. CRP 1.25 (H) 0.00 - 0.50 mg/dL [facility] Specimen Blood Performing Organization Address City/State/[facility] P adrien Number [facility] [place] [address] PATHOLOGY AND GENOMIC MEDICINE [address] * Phosphorus level (01/09/2020 4:00 AM CDT) Only the most recent of 4 results within the time period is included. Phosphorus 2.5 2.4 - 4.5 mg/dL [facility] Specimen Blood Performing Organization Address City/[facility] Code P adrien Number [facility] [place] [address] PATHOLOGY AND GENOMIC MEDICINE [address] * B natriuretic peptide (01/09/2020 4:00 AM CDT) Only the most recent of 3 results within the time period is included. BNP 154 (H) 0 - 100 pg/mL [facility] Specimen Blood Performing Organization Address City/[facility] Code P adrien Number [facility] DEPARTMENT OF [address] [place] [address] PATHOLOGY AND GENOMIC MEDICINE [address] * Magnesium level (01/09/2020 4:00 AM CDT) Only the most recent of 4 results within the time period is included. Magnesium 2.1 1.6 - 2.4 mg/dL [facility] Specimen Blood Performing Organization Address City/State/ZIP Code P adrien Number [facility] [place] [address] PATHOLOGY AND GENOMIC MEDICINE [address] * Lactic acid level (01/09/2020 4:00 AM CDT) Only the most recent of 3 results within the time period is included. Lactic acid 2.3 (H) 0.5 - 2.2 mmol/L [facility] Specimen Blood Performing Organization Address City/[facility]/ZIP Code P adrien Number [facility] [place] [address] PATHOLOGY AND GENOMIC MEDICINE [address] * Ferritin level (01/09/2020 4:00 AM CDT) Only the most recent of 4 results within the time period is included. Pathologist [facility] Ferritin level 98 13 - 150 ng/mL [facility] Specimen Blood Performing Organization Address City/[facility] P adrien Number [facility] [place] [address] PATHOLOGY AND [facility] MEDICINE [address] * Respiratory pathogen panel (01/07/2020 8:55 PM CDT) Pathologist [facility] Adenovirus PCR Not Detected [place] Comment: [facility] Specimen Information HOSPITAL Specimen Source: Nares Specimen Site: Right Coronavirus Not Detected [place] HKU1 PCR [facility] Coronavirus Not Detected [place] NL63 PCR [facility] Coronavirus Not Detected [place] 229E PCR [facility] Coronavirus Not Detected [place] OC43 PCR [facility] Human Not Detected [place] metapneumovirus [facility] Human Not Detected [place] rhinovirus/ente [facility] rovirus PCR HOSPITAL Influenza A PCR Not Detected [facility] Influenza A/H1 Not Reported [place] PCR [facility] Influenza A/H3 Not Reported [facility] Influenza Not Reported [place] A/H1-2009 PCR [facility] Influenza B PCR Not Detected [facility] Parainfluenza Not Detected [place] virus 1 PCR [facility] Parainfluenza Not Detected [place] virus 2 PCR [facility] Parainfluenza Not Detected [place] virus 3 PCR [facility] Parainfluenza Not Detected [place] virus 4 PCR [facility] Respiratory Not Detected [place] syncytial virus [facility] PCR HOSPITAL Bordetella Not Detected [place] pertussis PCR [facility] Bordetella Not Detected [place] parapertussis [facility] PCR [facility] Chlamydia Not Detected [place] pneumoniae PCR [facility] Mycoplasma Not Detected [place] pneumoniae PCR [facility] Influenza A no Not Reported [place] sub type PCR [facility] Specimen Nares - Right Performing Organization Address City/[facility]/ZIP Code P adrien Number [facility] [place] [address] PATHOLOGY AND GENOMIC MEDICINE [place] [address] [place] [address] * Transthoracic Echocardiogram Complete, (w Contrast, Strain and 3D if needed) (01/07/2020 2:30 PM CDT) Specimen Narrative Performed At [facility] KRISTIANLA Echo cardiography Report [address] [facility], [facility] [address], [place] [address] Pat.Name: ZEINAB GUERRA.ID: [id number] .Date: 01/07/2020 Refer.MD: YULIA LEWIS MD Exam Time: 2:05:00 PM Study Type:Routine Echo Height: 64in Weight: 205lb BSA: 1.98 m2 Age: 12 1955,64Y Sex: FEMALE BP: 118/57 HR: 63 bpm Sonogrphr: Jillian Damon BS, RDCS Pat. Stat.:Inpatient Room: [place] [address] Study Status:Final Echo Event ID:[id number] Order ID: [id number] Reason for Study:Heart Failure Procedures: 2D Echo, [...] PA systolic pressure. MEASUREMENTS: 2D Parasternal [place] Ao An 2.4 cm LVPWd 0.98 cm [...] - 01/07/2020 6:15 PM CDT Echocardiography Report [address] [place] [address] Pat.Name: ZEINAB GUERRA.ID: [id number] .Date: 01/07/2020 Refer.MD: YULIA LEWIS MD Exam Time: 2:05:00 PM Study Type:Routine Echo Height: 64in Weight: 205lb BSA: 1.98 m2 Age: 14 1955,64Y Sex: FEMALE BP: 118/57 HR: 63 bpm Sonogrphr: Jillian Damon, BS, RDCS Pat. Stat.:Inpatient Room: [place] [address] Study Status:Final Echo Event ID:[id number] Order ID: [id number] Reason for Study:Heart Failure Procedures: 2D Echo, [...] PA systolic pressure. MEASUREMENTS: 2D Parasternal [place] Ao An 2.4 cm LVPWd 0.98 cm [...] PM Usman Noland M.D. Performing Organization Address City/[facility]/ZIP Code P adrien Number [facility] [address] [place] [address] * XR Chest 1 Vw Portable (01/07/2020 [...] evidence of pleural effusio n, or pneumothorax. [facility]-[id number] Procedure Note Hm Interface, Radiology Results Incoming - 01/07/2020 8:25 AM CDT EXAMINATION: XR CHEST 1 VW PORTABLE CLINICAL HISTORY: ICU pt stable with no clinical status changes, COVID-19 hypoxia COMPARISON: To a previous examination from 01/05/2020 IMPRESSION: Cardiomediastinal silhouette is prominent. Perihilar and basilar consolidation has markedly improved since the previous examination. There is no evidence of pleural effusion, or pneumothorax. [facility]-[id number] Performing Organization Address [facility] Code P adrien Number [facility] [address] [place] [address] * Troponin (01/07/2020 5:25 AM CDT) Only the most recent of 5 results within the time period is included. Troponin 0.129 (H) 0.000 - 0.040 ng/mL [place] Comment: [facility] In patients suspected of HOSPITAL having a [...] 0.020 ng/mL Specimen Blood Performing Organization Address City/State/[facility] Code [place] [address] PATHOLOGY AND GENOMIC MEDICINE [address] * Triglycerides (01/07/2020 5:25 AM CDT) Only the most recent of 2 results within the time period is included. Triglycerides 191 (H) <150 mg/dL [facility] Specimen Blood Performing Organization Address City/State/ZIP [facility] [place] [address] PATHOLOGY AND GENOMIC MEDICINE [address] * Ionized calcium (01/07/2020 5:25 AM CDT) pH 7.41 [facility] Ionized calcium 1.14 1.11 - 1.32 mmol/L [facility] Specimen Blood Performing Organization Address City/State/ZIP Code P adrien Number [address] [place] [address] PATHOLOGY AND GENOMIC MEDICINE [place] [facility] [address] [place] [address] * POC glucose (01/06/2020 8:22 PM CDT) POC glucose 99 65 - 99 mg/dL [place] Comment: [facility] Burr Bench Operator Name: [facility] Device ID: [id number] Chartable: [facility] Notified RN Specimen Blood Performing Organization Address City/State/ZIP Code P adrien Number [facility] DEPARTMENT OF [address] [place] [address] PATHOLOGY AND GENOMIC MEDICINE [place] [facility] [address] [place] [address] * CT Angiogram Pe Chest (01/06/2020 8:12 [...] be reactive. 4.Other findings as described above. [facility]-[id number] sheath likely Procedure Note [facility], Radiology Results Incoming - 01/06/2020 8:29 [...] be reactive. 4.Other findings as described above. [facility]-[id number] sheath likely Performing Organization Address City/[facility]/[place]IP [place] [address] * COVID-19 qualitative PCR (01/06/2020 12:28 PM CDT) Only the most recent of 2 results within the time period is included. Pathologist [facility] Interpretation Negative results do not [place] preclude 2019-nCoV infection [facility] and should not be used as the HOSPITAL sole basis for treatment or other patient management decisions. Negative results must be combined with clinical observations, patient history, and epidemiological information. COVID-19 Not-Detected Not-Detected [place] qualitative PCR [facility] result HOSPITAL COVID-19 See link below for PDF Lab [place] qualitative PCR ReportComment: Case Number: [facility] [id number] HOSPITAL Specimen Nasopharyngeal swab Performing Organization Address [facility] P adrien Number [facility] [place] [address] PATHOLOGY AND [facility] MEDICINE [address] * Arterial blood gas (01/06/2020 3:58 AM CDT) [facility] pH, arterial 7.38 7.35 - 7.45 [facility] pCO2, arterial 47 (H) 35 - 45 mmHg [facility] pO2, arterial 158 (H) 80 - 90 mmHg [facility] Bicarbonate, 27.4 21.0 - 28.0 mmol/L [facility] Base excess, 2 -2 - 2 mEq/L [facility] O2 saturation, 99 95 - 100 % [facility] Specimen Blood Performing Organization Address [facility] P adrien Number [facility] [place] [address] PATHOLOGY AND GENOMIC MEDICINE [address] * LDH (01/06/2020 3:05 AM CDT) Pathologist [facility] LDH 280 (H) 87 - 225 U/L [facility] Specimen Blood Performing Organization Address City/[facility] P adrien Number [facility] DEPARTMENT OF [address] [place] [address] PATHOLOGY AND GENOMIC MEDICINE [address] * Partial thromboplastin time, activated (01/05/2020 6:30 PM CDT) Pathologist [facility] PTT 31.6 23.0 - 36.0 sec [place] Comment: [facility] PTT therapeutic range for HOSPITAL unfractionated heparin is 61.0-112.0 seconds which corresponds to Anti-Xa 0.3-0.7 U/ml. Specimen Blood Performing Organization Address City/[facility] P adrien Number [facility] [place] [address] PATHOLOGY AND GENOMIC MEDICINE [address] * Creatine kinase, total (CPK) (01/05/2020 6:30 PM CDT) [facility] Creatine kinase 74 26 - 192 U/L [facility] Specimen Blood Performing Organization Address [facility] P adrien Number [facility] [place] [address] PATHOLOGY AND GENOMIC MEDICINE [address] * ECG ED Preliminary Interpretation - Not an Order (01/05/2020 6:22 PM CDT) Narrative Performed At Olga Lidia Mcgill MD 01/05/2020 9:47 PM ECG ED Preliminary Interpretation - Not an Order Performed by: Olga Lidia Mcgill MD Authorized by: Olga Lidia Mcgill MD ECG reviewed by ED Physician in the abs ence of a cleaning team member: yes Interpretation: Interpretation: abnormal Rate: ECG rate: [...] this patient from another provider.: no after 04/06/2019 Insurance Type Payer Benefit Subscriber ID Effective Phone Address Plan / Dates Group Exchange BCBS EXCHANGE BLUE [id number] 2019-P ADVANTAGE resent HMO EXCH Advance Directives For more information, please contact: [phone] 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
--- OUTSIDE RECORDS SUMMARY | 2020-04-06 10:34 | XMS REPORT | Clinical Summary ---
Author Author [facility] Address Unknown Phone Unavailable Care Team Providers Care Cleaner Name Role Phone PCP Unavailable Allergies Not on File Medications Not on file Active Problems Not on file Encounters Care Team Description Date Type Specialty Juan Hugo MD trasnfer 04/03/2020 Telephone Critical Care Medic ine after 04/06/2019 Social History Date Tobacco Use Types Packs/Day Years Used Never Assessed Sex Assigned at Date Recorded Not on file Last Filed Vital Signs Not on file Plan of Treatment Not on file Results Not on fileafter 04/06/2019
--- OUTSIDE RECORDS SUMMARY | 2020-04-06 10:34 | XMS REPORT | Continuity of Care Document ---
Author Author [facility] t Organization [facility] Address [address] [place] [address] Phone Unavailable Care Team Providers Care [employer] Science Tutor Name Role Phone MD CLIFFORD BULLARD PCP Kajal CHOI AMBICA Attphys Unavailable ARMONDTOREY BAIN Attphys Unavailable Lin Parra MD, Lacho Martinez Attphys [phone] Sabino OIL EXPELLER OPERATOR, Halima Attphys [phone] Provider, Unknown Attphys Unavailable Johnnie OMER, Jeffrey Attphys Unavailable Nano ALVAREZ, Olga Lidia Attphys Maria Esther Al MD Attphys González ALVAREZ, Sola Attphys TOREY LEAHY Admphys Unavailable MARIA ESTHER AL Admphys Unavailable Payers Payer Name Policy Type Policy Number Effective Date Expiration Date Kajal tian [place] [employer] [id number] [facility] [employer]CH[employer] ADVANT[employer] HMO [id number] 2020-Pre sentExchange [id number] 2019 00:00:00 [place] [facility] Problems Condition Name Condition Details Condition Category [...] failure Disease Active 2020-01-05 00:00:00 Fadi Powell Sepsis Problem Active 2014-07-28 00:00:00 [facility] Hypotension Problem Active 2014-07-28 00:00:00 [facility] Pneumonia Problem Active 2014-07-28 00:00:00 [facility] Pleural effusion Problem Active 2014-07-28 00:00:00 [facility] Acute renal failure Problem Active 2014-07-28 00:00:00 [facility] Allergies, Adverse Reactions, Alerts Allergy Name Allergy Type Status Severity Reaction(s) Onset Date Inacti ve Date Treating Clinician Comments Source No Known Allergies DA Active U 2019-07-22 00:00:00 [facility] No Known Contrast Allergies DA Active U 2008-09-05 00:00: 00 [facility] No Known Drug Allergies DA Active U 2008-09-05 00:00:00 [facility] No Known Food Allergies DA Active U 2008-09-05 00:00:00 [facility] No Known Other Allergies DA Active U 2008-09-05 00:00:00 [facility] No Known Drug Intolerances DA Active U 2002-03-19 00:00:0 0 [facility] Social History Social Habit Start Date Stop Date Quantity Comments Source History of tobacco use Cigarette Smoker [facility] History SDOH Alcohol Std Drinks [facility] History SDOH Alcohol Binge [facility] Islam Sex Assigned At Marlen stobisi Islam Cigarettes smoked current (pack per day) - Reported 00:00:00 2020-01-06 00:00:00 Sabas Powell Tobacco use and exposure 2020-01-06 00:00:00 2020-01-06 00:00:00 Lukasz kiran used Sabas Powell Alcohol intake 2020-01-06 00:00:00 2020-01-06 00:00:00 Lifetime non-drinker (finding) Sabas Powell History SDOH Alcohol Frequency 2020-01-05 00:00:00 2020-01-05 00:00:0 0 1 Sabas Powell Smoking Status Start Date Stop Date Source Current every day smoker 2020-01-06 00:00:00 Marlen jennifer Powell Medications Ordered Medication Name Filled Medication [...] MG tablet 2020-01-17 15:18:40 Y es 12.5mg [id number] Take 12.5 mg by mouth 3 (three) [...] for up to 15 days. Sabas Powell Albuterol Sulfate (Albuterol Sulfate Hfa) 8.5 Gm HFA.A ER.AD Albuterol Sulfate (Albuterol Sulfate Hfa) 8.5 Gm HFA.AER.AD Yes 2 As Needed [facility] Alprazolam Alprazolam Yes .25 Every 6 Hours [facility] Atorvastatin Calcium Atorvastatin Calcium Yes 80 Daily [facility] Benzonatate Benzonatate Yes 100 Every 6 Hours as needed for Cough [facility] Captopril Captopril Yes 12.5 Three Times A Day [facility] Carvedilol Carvedilol Yes 12.5 Twice A Day [facility] Fluticasone/Salmeterol (Advair 250-50 Diskus) 1 Each D ISK.W.DEV Fluticasone/Salmeterol (Advair 250-50 Diskus) 1 Each DISK.W.DEV Yes [facility] Montelukast Sodium (Singulair) 10 Mg TABLET Montelukas t Sodium (Singulair) 10 Mg TABLET Yes 10 Daily [facility] Omeprazole Omeprazole Yes 20 Daily [facility] Potassium Potassium Yes [facility] Warfarin Sodium (Coumadin) 5 Mg TABLET Warfarin Sodium (Coumadin ) 5 Mg TABLET Yes 5 Today At 5:00PM [facility] Warfarin Sodium Warfarin Sodium 2014-07-28 00:00:00 No 6 Daily [facility] Vital Signs Vital Name Observation Time Observation Value Comments Source Body Temperature 2020-04-05 16:00:00 98.1 [degF] [facility] Heart Rate 2020-04-05 16:00:00 63 /min [facility] Respiratory rate 2020-04-05 16:00:00 20 /min [facility] BP Systolic 2020-04-05 16:00:00 133 mm[Hg] [facility] BP Diastolic 2020-04-05 16:00:00 77 mm[Hg] [facility] Oxygen saturation by Pulse oximetry 2020-04-05 16:00:00 100 /min [facility] Weight 2020-04-05 09:08:00 202.19 [lb_av] [facility] BMI (Body Mass Index) 2020-04-05 09:08:00 34.7 kg/m2 [facility] Systolic blood pressure 2020-01-10 12:13:03 135 mm[Hg] [facility] Diastolic blood pressure 2020-01-10 12:13:03 76 mm[Hg] Sabas Powell Heart rate 2020-01-10 12:13:03 60 /min Sabas Powell Body temperature 2020-01-10 12:13:03 36 Nikky [place] Respiratory rate 2020-01-10 12:13:03 18 /min [place] [facility] Oxygen saturation in Arterial blood by Pulse oximetry 01-09 12:13:03 96 /min Sabas Powell Body weight 2020-01-10 07:20:00 91.9 kg Sabas Powell BMI 2020-01-10 07:20:00 34.78 kg/m2 Sabas Powell Body height 2020-01-06 01:00:00 162.6 cm Sabas Powell Procedures Procedure Date / Time Performed Performing Clinician [facility] e X-ray of chest, two views 2020-04-04 00:00:00 [facility] Computed tomography of chest without contrast 2020-04-04 00:00:0 0 [facility] HC COMPLETE BLD COUNT W/AUTO DIFF 2020-01-10 06:00:00 Mansoor Claudio COMPREHENSIVE METABOLIC PANEL 2020-01-10 06:00:00 Sola Claudio ESTIMATED GFR 2020-01-10 06:00:00 Sola Claudio Meth odchristiana PROTHROMBIN TIME WITH INR 2020-01-09 15:17:00 Sola Claudio [id number] IGG 2020-01-09 15:16:00 Sola Claudio ECG 12-LEAD 2020-01-09 09:21:21 Boo Calvert ethodist HC COMPLETE BLD COUNT W/AUTO DIFF 2020-01-09 04:50:00 Tiny Lehman LACTIC ACID LEVEL 2020-01-09 04:00:00 Tiny Oakley [place] [facility] PHOSPHORUS LEVEL 2020-01-09 04:00:00 Tiny Oakley MAGNESIUM LEVEL 2020-01-09 04:00:00 Tiny Oakley COMPREHENSIVE METABOLIC PANEL 2020-01-09 04:00:00 Corona Oakley [facility] Islam C-REACTIVE PROTEIN 2020-01-09 04:00:00 Tiny Oakleykathy merritt [facility] Islam INTERLEUKIN 6 2020-01-09 04:00:00 Tiny Oakley Ella khan Islam FERRITIN LEVEL 2020-01-09 04:00:00 Adin Coronajohnyhieu Ella khan Islam D-DIMER 2020-01-09 04:00:00 [place], Coronajohnyhieu Ella khan Islam B NATRIURETIC PEPTIDE 2020-01-09 04:00:00 Barry Fitch ESTIMATED GFR 2020-01-09 04:00:00 Adin Coronajohnyhieu Ella Powell ECG 12-LEAD 2020-01-08 09:19:00 Boo Calvert ethodist HC COMPLETE BLD COUNT W/AUTO DIFF 2020-01-08 03:50:00 Librado rodriguez Coronajohnyhieu HarrisEllagerda [place] LACTIC ACID LEVEL 2020-01-08 03:50:00 Adin Coronajohnyhieu Ella [place] PHOSPHORUS LEVEL 2020-01-08 03:50:00 Adin Coronajohnyhieu Ella [place] MAGNESIUM LEVEL 2020-01-08 03:50:00 Tiny Oakley Ella khan Islam COMPREHENSIVE METABOLIC PANEL 2020-01-08 03:50:00 Corona Oakley [facility] Islam C-REACTIVE PROTEIN 2020-01-08 03:50:00 [place], Coronajohnyhieu Charla merritt [facility] INTERLEUKIN 6 2020-01-08 03:50:00 Adin Coronajohnyhieu Ella khan Islam FERRITIN LEVEL 2020-01-08 03:50:00 Adin Tiny Ella khan Islam D-DIMER 2020-01-08 03:50:00 Adin Coronajohnyhieu Ella Powell ESTIMATED GFR 2020-01-08 03:50:00 Denita Oakleyhieu Ella Powell RESPIRATORY PATHOGEN PANEL WITH COVID-19 2020-01-07 20:55:00 Gagan Ellis TTE COMPLETE, W CONTRAST, W DOPPLER ([id number]) 2020-01-07 14:30 :00 Lissett Sahu Imarendreyes [place] XR CHEST 1 VW PORTABLE 2020-01-07 07:15:00 Tiny Oakley [place] [facility] HC COMPLETE BLD COUNT W/AUTO DIFF 2020-01-07 05:25:00 Librado franciscobisiTiny Islam LACTIC ACID LEVEL 2020-01-07 05:25:00 Tiny Oakley Islam PHOSPHORUS LEVEL 2020-01-07 05:25:00 Denita Oakleyhieu Ella [place] MAGNESIUM LEVEL 2020-01-07 05:25:00 Tiny Oakley TROPONIN 2020-01-07 05:25:00 Tiny Oakley IONIZED CALCIUM 2020-01-07 05:25:00 Tiny Oakley COMPREHENSIVE METABOLIC PANEL 2020-01-07 05:25:00 Corona Oakley monikdennis Powell C-REACTIVE PROTEIN 2020-01-07 05:25:00 Tiny Oakley TRIGLYCERIDES 2020-01-07 05:25:00 Tiny Oakley INTERLEUKIN 6 2020-01-07 05:25:00 Tiny Oakley FERRITIN LEVEL 2020-01-07 05:25:00 Tiny Oakley D-DIMER 2020-01-07 05:25:00 Tiny Oakley ESTIMATED GFR 2020-01-07 05:25:00 Tiny Oakley POC GLUCOSE 2020-01-06 20:22:00 Maria Esther Al Meth odchristiana CT ANGIOGRAM PE CHEST 2020-01-06 20:12:29 Tiny Oakley TROPONIN 2020-01-06 19:00:00 Boo Calvert [place] [facility] ethodist COVID-19 QUALITATIVE PCR 2020-01-06 12:28:00 Tiny [place]ley Islam ARTERIAL BLOOD GAS 2020-01-06 03:58:00 Dexter Lizama Islam PHOSPHORUS LEVEL 2020-01-06 03:05:00 Luis AlbertoLissett Christiemerritt higginbotham [facility] MAGNESIUM LEVEL 2020-01-06 03:05:00 NiviaLissett ruggiero Christiedov timmerritt [place] [facility] HC COMPLETE BLD COUNT W/AUTO DIFF 2020-01-06 03:05:00 Jaxon Sahulington Braulio [place] [facility] INTERLEUKIN 6 2020-01-06 03:05:00 NiviaLissett ruggiero Christiedov timmerritt [place] [facility] COMPREHENSIVE METABOLIC PANEL 2020-01-06 03:05:00 Luis AlbertoRajan trudy Ramsey [place] [facility] D-DIMER 2020-01-06 03:05:00 Pham Sahuton Jessica Powell TRIGLYCERIDES 2020-01-06 03:05:00 Pham Sahuton Jessica bruno [place] [facility] LDH 2020-01-06 03:05:00 Luis Alberto Clover Jessica bruno [place] [facility] FERRITIN LEVEL 2020-01-06 03:05:00 Luis Alberto Lissett Jessica dumontmerritt [place] [facility] C-REACTIVE PROTEIN 2020-01-06 03:05:00 Luis AlbertoLissett Dejuanlaurabisi golddamion Sabas Powell B NATRIURETIC PEPTIDE 2020-01-06 03:05:00 Luis AlbertoJaxonClover America gilmer Powell ESTIMATED GFR 2020-01-06 03:05:00 Lissett Sahu [place] TROPONIN 2020-01-06 00:55:00 Olga Lidia Mcgill odchristiana TROPONIN 2020-01-05 22:00:00 Olga Lidia Mcgill Meth odchristiana COVID-19 QUALITATIVE PCR 2020-01-05 19:46:00 Olga Lidia Mcgill XR CHEST 1 VW PORTABLE 2020-01-05 18:53:47 Olga Lidia Mcgill on Islam HC COMPLETE BLD COUNT W/AUTO DIFF 2020-01-05 [...] ESTIMATED GFR 2020-01-05 18:30:00 Olga Lidia Mcgill [place] CRITICAL CARE, E/M 30-74 MINUTES 2020-01-05 18:22:37 [...] COLONOSCOPY SCREEN ING [code = COLONOSCOPY SCREENING[facility] 2007 00:00:00 SHINGLES VACCINES (#1) [code = SHINGLES VACCINES (#1)] Sabas Powell Future Scheduled Test 1978 00:00:00 Screening for daryn gnant neoplasm of cervix (procedure) [code = 292033018] Sabas perez Instructions Congestive Heart Failure [facility] Encounters Start Date/Time End Date/Time Encounter Type Admission Type [facility] Care Department Encounter ID Source 2020-03-26 20:30:00 Inpatient E [facility] [id number] [facility] 2020-04-03 12:23:00 2020-04-05 17:11:00 Discharged Inpatient 1 ARMOND TOREY [facility] [id number] [facility] 2020-01-05 00:00:00 2020-01-10 00:00:00 Inpatient SOLA CLAUDIO [facility] [id number] [place] [facility] Results Test Description Test Time Test Comments Results Result Comments Source CHEST SINGLE (PORTABLE) 2020-04-06 08:31:00 [facility] : 1955 Sex: F [place] [address] Patient Name: JERRY GUERRA MR #: [id number] : 1955 Age/Sex: 64/F Req #: [id number] [facility] Physician: Ordered by: KELLY CHOI DO Report #: [id number] Location: ER Room/Bed: Procedure: [id number] DX/CHEST SINGLE (PORTABLE) Exam Date: Exam Time: REPORT STATUS: Signed EXAMINATION: CHEST SINGLE (PORTABLE) INDICATION: Y sob COMPARISON: Multiple prior chest x-rays including most recent on 04/05/2020. CT scan on 04/04/2020. FINDINGS: TUBES and LINES: None. LUNGS: Normal lung volumes. There is mild interstitial prominence throughout both lungs. There is bibasilar atelectasis. No focal consolidations. PLEURA: No pleural effusion or pneumothorax. HEART AND MEDIASTINUM: The cardiomediastinal silhouette is unchanged. BONES AND SOFT TISSUES: No acute osseous lesion. Soft tissues are unremarkable. UPPER ABDOMEN: No free air under the diaphragm. IMPRESSION: 1. Mild interstitial prominence throughout both lungs likely reflect pulmonary vascular congestion without. No bianca edema. 2. Bibasilar atelectasis. No focal consolidation, pleural effusion or pneumothorax. Signed by: Juan Nice MD on 04/06/2020 8:34 AM Dictated By: JUAN NICE MD 3 Transcribed By: CODY on 04/06/20833 COPY TO: KELLY CHOI DO CHEST SINGLE (PORTABLE) 2020-04-05 08:27:00 [facility] : 1955 Sex: F [place] [address] Patient Name: JERRY GUERRA MR #: [id number] : 1955 Age/Sex: 64/F Req #: [id number] Adm Physician: TOREY LEAHY MD Ordered by: MALISSA DIAZ MD Report #: [id number] Location: [facility] Room/Bed: [place] [address] Procedure: [id number] DX/CHEST SINGLE (PORTABLE) Exam Date: 04/05/20 Exam Time: 0630 REPORT STATUS: Signed X-ray chest frontal view History: Shortness of breath Comparison: 04/04/2020 and 04/03/2020 Findings: Lines and tubes: None Central airways: Unremarkable Cardiac silhouette: Unremarkable Mediastinal silhouettes: Unremarkable Pleura: No pleural effusion, pneumothorax or thickening Diaphragms: Unremarkable Lungs: Significant improvement in bilateral pulmonary interstitial infiltrates Skeletal structures: Unremarkable Extrathoracic soft tissues: Unremarkable Impression: Near resolution of bilateral pulmonary infiltrates. The time course favors hydrostatic process such as edema over an infectious/inflammatory process. Clinical correlation is recommended. Signed by: Sam Robison MD on 04/05/2020 9:05 AM Dictated By: SAM ROBISON MD 4 Transcribed By: CODY on 04/05/20904 COPY TO: MALISSA DIAZ MD Blood leukocytes automated count (number/volume) 2020-04-05 04:45:00 Test Item White Blood Count (test code = 6690-2) 9.40 10*3/uL 4.8-10.8 [facility] erythrocytes automated count (number/volume)2020-04-05 04:45:00* Test Item Value Reference Range Interpretation Comments Red Blood Count (test code = 789-8) 4.47 10*6/mL 3.6-5.1 [facility] hemoglobin measurement (moles/volume)2020-04-05 04:45:00* Test Item Value Reference Range Interpretation Comments Hemoglobin (test code = 19101-2) 13.7 g/dL 12.0-16.0 [facility] CenterAutomated blood hematocrit (volume fraction)2020-04-05 04:45:00* Test Item Value Reference Range Interpretation Comments Hematocrit (test code = 4544-3) 43.1 % 34.2-44.1 [facility] CenterAutomated erythrocyte mean corpuscular [id number] 04:45:00* Test Item Value Reference Range Interpretation Comments Mean Corpuscular Volume (test code = 787-2) 96.4 81-99 [facility] CenterAutomated erythrocyte mean corpuscular hemoglobin (mass per erythrocyte)2020-04-05 04:45:00* Test Item Value Reference Range Interpretation Comments Mean Corpuscular Hemoglobin (test code = 785-6) 30.6 pg 28-32 [facility] CenterAutom[facility] erythrocyte mean corpuscular hemoglobin concentration measurement (mass/volume)2020-04-05 04:45:00* Test Item Value Reference Range Interpretation Comments Mean Corpuscular Hemoglobin Concent (test code = 786-4) 31.8 g/dL 31-35 [facility] CenterRDW YzcRf-[id number] 04:45:00* Test Item Value Reference Range Interpretation Comments Red Cell Distribution Width (test code = 31778-0) 15.3 % 11.7 -14.4 [facility] CenterAutomated blood platelet count (count/volume)2020-04-05 04:45:00* Test Item Value Reference Range Interpretation Comments Platelet Count (test code = 777-3) 179 10*3/uL 140-360 [facility] CenterAutomated blood segmented neutrophil count as percentage of total ixxlqwyzak0920-67-86 04:45:00* Test Item Value Reference Range Interpretation Comments Neutrophils (%) (Auto) (test code = 80606-9) 64.0 % 38.7-80.0 [facility] CenterAutomated blood lymphocyte count as percentage ot total [id number] 04:45:00* Test Item Value Reference Range Interpretation Comments Lymphocytes (%) (Auto) (test code = 736-9) 20.6 % 18.0-39.1 [facility] CenterAutomated blood monocyte count as percentage of total pnahsqknsf3489-13-46 04:45:00* Test Item Value Reference Range Interpretation Comments Monocytes (%) (Auto) (test code = 5905-5) 7.9 % 4.4-11.3 [facility] CenterAutomated blood eosinophil count as percentage of total harkfjrrmo4971-02-37 04:45:00* Test Item Value Reference Range Interpretation Comments Eosinophils (%) (Auto) (test code = 713-8) 5.6 % 0.0-6.0 [facility] CenterAutomated blood basophil count as percentage of total ulivpwtkbi9090-72-85 04:45:00* Test Item Value Reference Range Interpretation Comments Basophils (%) (Auto) (test code = 706-2) 0.4 % 0.0-1.0 [facility] CenterFluoroscopic procedure less than one hour gujwsvgr2329-91-80 04:45:00* Test Item Value Reference Range Interpretation Comments IM GRANULOCYTES % (test code = IM GRANULOCYTES %) 1.5 % 0.0- 1.0 [facility] CenterAutom[facility] blood neutrophil count 2020-04-05 04:45:00* Test Item Value Reference Range Interpretation Comments Neutrophils # (Auto) (test code = 751-8) 6.0 2.1-6.9 [facility] CenterBlood lymphocytes count (number/volume) 2020-04-05 04:45:00* Test Item Value Reference Range Interpretation Comments Lymphocytes # (Auto) (test code = 77720-4) 1.9 1.0-3.2 [facility] CenterBlood monocytes automated count (number/volume)2020-04-05 04:45:00* Test Item Value Reference Range Interpretation Comments Monocytes # (Auto) (test code = 742-7) 0.7 0.2-0.8 [facility] CenterAutomated blood eosinophil count 2020-04-05 04:45:00* Test Item Value Reference Range Interpretation Comments Eosinophils # (Auto) (test code = 711-2) 0.5 0.0-0.4 [facility] CenterAutomated blood basophil count (count/volume)2020-04-05 04:45:00* Test Item Value Reference Range Interpretation Comments Basophils # (Auto) (test code = 704-7) 0.0 0.0-0.1 [facility] CenterFluoroscopic procedure less than one hour clifrnej6957-08-26 04:45:00* Test Item Value Reference Range Interpretation Comments Absolute Immature Granulocyte (auto (kameron t code = Absolute Immature Granulocyte (auto) 0.14 10*3/uL 0-0.1 [facility] CenterProthrombin time (PT) in platelet poor plasma by coagulation [id number] 04:45:00* Test Item Value Reference Range Interpretation Comments Prothrombin Time (test code = 5902-2) 21.9 s 11.9-14.5 [facility] CenterINR in Platelet poor plasma by Coagulation [id number] 04:45:00* Test Item Value Reference Range Interpretation Comments Prothromb Time International Ratio (test code = 6301-6) 1.81 Oral Anticoagulant Therapy INR Values:1. Low Intensity Therapy 1.5 - 2.02 . Moderate Intensity Therapy 2.0 - 3.03. High Intensity Therapy(1) 2.5 - 3. 54. High Intensity Therapy(2) 3.0 - 4.05. Panic Value INR > 5.[address] [facility] [facility] plasma sodium measurement (moles/volume)2020-04-05 04:45:00* Test Item Value Reference Range Interpretation Comments Sodium Level (test code = 2951-2) 137 mmol/L 136-[address] [facility] [facility]rum or plasma potassium measurement (moles/volume)2020-04-05 04:45:00* Test Item Value Reference Range Interpretation Comments Potassium Level (test code = 2823-3) 3.9 mmol/L 3.5-5.[address] [facility]rum or plasma chloride measurement (moles/volume)2020-04-05 04:45:00* Test Item Value Reference Range Interpretation Comments Chloride Level (test code = 2075-0) 97 mmol/L 98-[address] [facility]rum or plasma carbon dioxide, total measurement (moles/volume)2020-04-05 04:45:00* Test Item Value Reference Range Interpretation Comments Carbon Dioxide Level (test code = 2028-9) 32 mmol/L 22-[address] [facility] Centererum or plasma anion [id number] 04:45:00* Test Item Value Reference Range Interpretation Comments Anion Gap (test code = 07089-1) 11.9 mmol/L 8-[address] [facility]ererum or plasma urea nitrogen measurement (mass/volume)2020-04-05 04:45:00* Test Item Value Reference Range Interpretation Comments Blood Urea Nitrogen (test code = 3094-0) 30 mg/dL 7-[address] [facility] Centererum or plasma creatinine measurement (mass/volume)2020-04-05 04:45:00* Test Item Value Reference Range Interpretation Comments Creatinine (test code = 2160-0) 1.24 mg/dL 0.57-1.[address] [facility] Centererum or plasma urea nitrogen/creatinine mass [id number] 04:45:00* Test Item Value Reference Range Interpretation Comments BUN/Creatinine Ratio (test code = 3097-3) 24 6- [facility] CenterEstimated glomerular filtration rate (GFR) axjvxieroelaa2126-44-95 04:45:00* Test Item Value Reference Range Interpretation Comments Estimat Glomerular Filtration Rate (test code = 213208409) 44 mL/mi n >60 Ranges were taken from the National Kidney Disease Education Program and the [facility] literature.Reference ranges:60 or greater: Wrvsnu58-01 ( for 3 consecutive months): Chronic kidney disease 15 or less: Kidney failureFort [facility] Regional Medical CenterGlucose tjhhvonitgy9301-17-38 04:45:00* Test Item Value Reference Range Interpretation Comments Glucose Level (test code = WMC3645) 114 mg/dL 74-[address] [facility] Centererum or plasma calcium measurement (mass/volume)2020-04-05 04:45:00* Test Item Value Reference Range Interpretation Comments Calcium Level (test code = 06160-6) 8.3 mg/dL 8.4-10.[address] [facility] Centererum or plasma total bilirubin measurement (mass/volume)2020-04-05 04:45:00* Test Item Value Reference Range Interpretation Comments Total Bilirubin (test code = 1975-2) 0.7 mg/dL 0.2-1.2 [facility] CenterFluoroscopic procedure less than one hour fkemlbac7085-74-05 04:45:00* Test Item Value Reference Range Interpretation Comments Aspartate Amino Transf (AST/SGOT) (test code = Aspartate Amino Transf (AST/SGOT)) 14 [IU]/L 5-[address] [facility] Centererum or plasma alanine aminotransferase measurement (enzymatic activity/volume)2020-04-05 04:45:00* Test Item Value Reference Range Interpretation Comments Alanine Aminotransferase (ALT/SGPT) (test code = 1742-6) 21 [IU]/L 0-[address] [facility] [facility] Centererum or plasma protein measurement (mass/volume)2020-04-05 04:45:00* Test Item Value Reference Range Interpretation Comments Total Protein (test code = 2885-2) 5.9 g/dL 6.5-8.[address] [facility] Centererum or plasma albumin measurement (mass/volume)2020-04-05 04:45:00* Test Item Value Reference Range Interpretation Comments Albumin (test code = 1751-7) 3.3 g/dL 3.5-5.0 [facility] CenterPlasma globulin measurement (mass/volume) 2020-04-05 04:45:00* Test Item Value Reference Range Interpretation Comments Globulin (test code = 08547-6) 2.6 g/dL 2.3-3.[address] [facility] Centererum or plasma albumin/globulin mass [id number] 04:45:00* Test Item Value Reference Range Interpretation Comments Albumin/Globulin Ratio (test code = 1759-0) 1.3 0.8-2.[address] [facility] [facility] Centererum or plasma alkaline phosphatase measurement (enzymatic activity/volume)2020-04-05 04:45:00* Test Item Value Reference Range Interpretation Comments Alkaline Phosphatase (test code = 6768-6) 47 [IU]/L 40-150 [facility]CT [facility] [id number] 15:16:00 [facility] : 1955 Sex: F* [facility] [address] [facility] [facility], [place] [address] Patient Name: JERRY GUERRA MR #: [id number] : 1955 Age/Sex: 64/F Req #: [id number] [facility] Physician: TOREY LEAHY MD Ordered by: TOREY LEAHY MD Report #: [id number] Location: [facility] Room/Bed: [place] [address] Procedure: [id number] CT/CT CHEST WO Exam Date: 03/17 02/03 Exam Time: 1215 REPORT STATUS: Signed EXAM: CT Chest WITHOUT intravenous contras t 04/04/2020 12:15 PM INDICATION: shortness of breath [id number] COMPARISON: X-ray dated the same day TECHNIQUE: Chest was scanned utilYovigo g a multidetector helical scanner from the lung apex through the level of the adrenal glands without administration of IV contrast. Coronal and sagittal ref ormations were obtained. Routine protocol was performed. IV CONTRAST: Non e RADIATION DOSE: Total DLP: 563 mGy*cm. Dose modulation, iterative reconstr uction, and/or weight based adjustment of the mA/kV was utilized to reduce the radiation dose to as low as reasonably achievable. COMPLICATIONS: None FINDINGS: LINES/ TUBES: None. LUNGS AND AIRWAYS: Large airways are pa tent. There is nonspecific pleural based scarring and groundglass opacities wi thin the anterior aspects of the upper lobes. No focal consolidation is noted. Right basilar scarring is noted. No suspicious pulmonary nodule or mass is id entified. PLEURA: The pleural spaces are clear. HEART AND MEDIASTINUM: The thyroid gland is normal. No mediastinal, hilar or axillary lymphadenopat hy. The heart is normal in size.. There is no pericardial effusion. Coronary artery calcifications are noted. Stent is noted within the LAD. UPPER AB DOMEN: None BONES: No acute osseous abnormality. Mild to moderate multileve l degenerative changes of the spine are noted. SOFT TISSUES: Unremarkable . IMPRESSION: Nonspecific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 Technologist:Alexandria Contreras RT(R),CT CTDI: DLP: Trnscb Date/Time: 07/22/2019 (1525) [email or web address] Orig Print D/T: S: 07/22/2019 (1528) PAGE 2 Signed Report - CT HEAD/BRAIN W/O [id number] 15:25:00 Name: JERRY GUERRA [facility] : 1955 Age/S: 64 / F [address] [facility] Unit #: [id number] Loc: [place] [address] Phys: Darell Jacob MD Acct: [id number] Di s Date: Status: REG ER PHONE #: Exam Date: 07/22/2019 1500 FAX #: Reason: HEADACHE EXAMS: CPT CODE: [id number] CT HEAD/BRAIN W/O CONT 92772 HISTORY: HEADACHE TECHNIQUE: Noncontrast 2.5 mm axial [...] paraspinal soft tissue abnormality. There are a fe w groundglass opacities in the right lung apex which are incompletely eval uated and may represent contusions or an infectious process. However no pn eumothorax is seen. IMPRESSION: No evidence of intracranial injury. 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 Findings suggest chronic sinusitis involving the right maxillary an d PAGE 1 Signed Report (CONTINUED) Name: JERRY GUERRA [facility] B: 1955 Age/S: 64 / F [address] [facility] Unit #: [id number] Loc: [place] [address] Phys: Nabeel Jacob MD Acct: [id number] D is Date: Status: REG ER PHONE #: [phone] Exam Date: 07/22/2019 1500 FAX #: Reason: HEADACHE EXAMS: CPT CODE: [id number] CT HEAD/BRAI N W/O CONT 88707 <Continued> the sphenoid sinuses. Correlate clinically. Degenerative changes of the cervical spine but no fracture or malalignment. Location: RR at 1525 Reported and signed by: Femi Spann MD CC: Gagan Jacob MD; Clifford Bullard Technologist:Alexandria Contreras RT(R),CT CTDI: DLP: Trnscb Date/Time: 07/22/2019 (1525) [email or web address] Orig Print D/T: S: 07/22/2019 (1528) PAGE 2 Signed Report URINALYSIS [id number] 15:03:00* Test Item Value Reference Range Interpretation [...] Clean Catch- XR SHOULDER 2 + V [id number] 14:57:00 FAX: Gagan Jacob MD [place]: St: PRE FAX: [facility] [phone] Name: JERRY GUERRA [facility] : 1955 Age/S: 64/F [address] [facility] Unit #: [id number] Loc: [place] [address] Phys: Gagan Jacob MD Acct: [id number] Dis Date: Status: PRE ER PHONE #: [phone] Exam Date: 07/22/2019 1450 FAX #: [phone] Reason: SHOULDER PAIN EXAMS: CPT CODE: [id number] XR SHOULDER 2 + V LT [address] REASON FOR EXAM: SHOULDER PAIN EXAM ORDER DATE: 07/22/2019 2:16 PM Ordering: Gagan Jacob MD Attending:Gagan Jacob MD Location:VL PROCEDURE: - XR SHOULDER 2 + V LT FINDINGS: 3 views of the left shoulder we re obtained. The osseous structures are unremarkable in size and shape. T he joint spaces are maintained. There is normal alignment of the humeral head. No evidence of fracture. The acromial clavicular joint is intact IMPRESSION: Unremarkable left shoulder Electronical ly Signed by Ruthy Gaspar on 07/22/2019 at 1771 Reported and signed by: Joao Gaspar M.D. CC: Gagan Jacob MD; Eligio Bullardh Technologist: Maxine Herbert(R) Trnscrd Date/Time/By: 07/22/2019 (9873) : By: NievesVTL Orig Print D/T: S: 07/22/2019 (3852) PAGE 1 Signed Report - XR KNEE 3 V LT 2019-07-22 14:56:00 FAX: Gagan Jacbo MD [place]: B St: PRE FAX: Y Clifford Bullard [facility] [phone] Name: JERRY GUERRA [facility] : 1955 Age/S: 64/F [address] [facility] Unit #: [id number] Loc: [place] [address] Phys: Gagan Jacob MD Acct: [id number] Dis Date: Status: PRE ER PHONE #: [phone] Exam Date: 07/22/2019 1450 FAX #: [phone] Reason: KNEE PAIN EXAMS: CPT CODE: [id number] XR KNEE 3 V LT [id number] REASON FOR EXAM: KNEE PAIN EXAM ORDER DATE: 07/22/2019 2:16 PM Ordering: Gagan Jacob MD Attending:Gagan Jacob MD Location:VL PROCEDURE: - XR KNEE 3 V LT FINDINGS: 3 views of the left knee were obtained. The osseous structures are unremarkable in size and shape. The joint spaces are maintained. No evidence of fracture. No evidence of joint effusion. The patella is intact IMPRESSION: Unremarkable left knee at 7149 Reported and signed by: Joao Gaspar M.D. CC: Gagan Meier MD; Clifford Bullard Technologist: Maxine Herbert(Vanessa) Trnscrd Date/Time/By: 07/22/2019 (14 56) : By: [email or web address] Orig Print D/T: S: 07/22/2019 (1942) PAGE 1 Signed Report
--- OUTSIDE RECORDS SUMMARY | 2020-04-06 10:35 | XMS REPORT | Clinical Summary ---
Author Author [place] [facility] Address Unknown Phone Unavailable Care Team Providers Care Computer Support Specialist Instructor Name Role Phone Asked, No Pcp PCP [...] WITH INR STAT 01/09/2020 3:17 PM CDT [id number] IGG Routine 01/09/2020 3:16 PM CDT ECG [...] PRELIMINARY Routine 01/05/2020 INTERPRETATION 6:22 PM CDT AR CRITICAL CARE, E/M Routine 01/05/2020 30-74 MINUTES 6:22 PM CDT ECG 12-LEAD Routine 01/05/2020 6:20 PM CDT after 04/06/2019 Results * Estimated GFR (01/10/2020 6:00 AM CDT) Only the most recent of 6 results within the time period is included. Pathologist [facility] Estimated GFR 66 mL/min/1.73 m2 [place] Comment: [facility] Interpretation G1 >=90 Normal or high [...] Organization Address City/State/ZIP Code P adrien Number [facility] DEPARTMENT OF [address] [place] [address] PATHOLOGY AND GENOMIC MEDICINE [address] * CBC with platelet and differential (01/10/2020 6:00 AM CDT) Only the most recent of 6 results within the time period is included. Pathologist [facility] WBC 13.38 (H) 4.50 - 11.00 k/uL [facility] RBC 4.68 4.20 - 5.50 m/uL [facility] HGB 14.5 12.0 - 16.0 g/dL [facility] HCT 44.4 37.0 - 47.0 % [facility] MCV 94.9 82.0 - 100.0 fL [facility] MCH 31.0 27.0 - 34.0 pg [facility] MCHC 32.7 31.0 - 37.0 g/dL [facility] RDW - SD 50.4 37.0 - 55.0 fL [facility] MPV 11.0 8.8 - 13.2 fL [facility] Platelet count 201 150 - 400 k/uL [facility] Nucleated RBC 0.00 /100 WBC [facility] Neutrophils 80.6 (H) 39.0 - 69.0 % [facility] Lymphocytes 10.5 (L) 25.0 - 45.0 % [facility] Monocytes 7.5 0.0 - 10.0 % [facility] Eosinophils 0.1 0.0 - 5.0 % [facility] Basophils 0.2 0.0 - 1.0 % [facility] Immature 1.1 (H)Comment: "Immature 0.0 - 1.0 % [facility] granulocytes granulocytes" (promyelocytes, METHOD IST myelocytes, metamyelocytes) HOSPITAL Specimen Blood Performing Organization Address City/State/ZIP Code P adrien Number [facility] DEPARTMENT OF [address] [place] [address] PATHOLOGY AND GENOMIC MEDICINE [address] * Comprehensive metabolic panel (01/10/2020 6:00 AM CDT) Only the most recent of 6 results within the time period is included. Sodium 140 135 - 148 mEq/L [facility] Potassium 4.4 3.5 - 5.0 mEq/L [facility] Chloride 96 (L) 98 - 112 mEq/L [facility] CO2 29 24 - 31 mEq/L [facility] Anion gap 15@ANIO 7 - 15 mEq/L [facility] BUN 27 (H) 8 - 23 mg/dL [facility] Creatinine 0.93 (H) 0.50 - 0.90 mg/dL [facility] Glucose 113 (H) 65 - 99 mg/dL [facility] Calcium 9.4 8.8 - 10.2 mg/dL [facility] Protein 6.5 6.3 - 8.3 g/dL [place] Comment: [facility] [place] 4.6-7.0 g/dL 1 week 4.4-7.6 g/dL 7 months-1year 5.1-7.3 g/dL 1-2 years 5.6-7.5 g/dL >3 years 6.0-8.0 g/dL 18-150 6.3-8.3 g/dL Albumin 3.3 (L) 3.5 - 5.0 g/dL [facility] A/G ratio 1.0 0.7 - 3.8 [facility] Alkaline 52 35 - 104 U/L [place] phosphatase [facility] AST 24 10 - 35 U/L [facility] ALT 30 5 - 50 U/L [facility] Total bilirubin 0.3 0.0 - 1.2 mg/dL [facility] Specimen Blood Performing Organization Address City/[facility] Code P adrien Number [facility] [place] [address] PATHOLOGY AND GENOMIC MEDICINE [address] * Prothrombin time with INR (01/09/2020 3:17 PM CDT) Only the most recent of 2 results within the time period is included. [facility] Prothrombin 13.4 11.5 - 14.5 sec [facility] INR 1.0 [place] Comment: [place] The International Normalized HOSPITAL Ratio (INR) is a therapeutic monitoring tool for patients who are stable on oral anticoagulant therapy. An INR of 2.0-3.0 is suggested for deep vein thrombosis/pulmonary embolism. Specimen Blood Performing Organization Address City/[facility] [place] [address] PATHOLOGY AND GENOMIC MEDICINE [address] * Hryi-QPKD-NnR-2 IgG (01/09/2020 3:16 PM CDT) Pathologist [facility] Alrb-[id number] Non-reactive Non-reactive [place] IgG Comment: [place] This test should not be used HOSPITAL [...] Organization Address City/State/ZIP Code P adrien Number [facility] DEPARTMENT OF [address] [place] [address] PATHOLOGY AND GENOMIC MEDICINE [place] [address] [place] [address] * ECG 12 lead (01/09/2020 9:21 AM CDT) Only the most recent of 3 results within the time period is included. Ventricular 61 [facility] MUSE rate Atrial rate 61 [facility] M[facility] AR interval 144 [facility] M[facility] QRSD interval 104 [...] is n ot available. Performing Organization Address City/[facility]/ZIP Code P adrien Number [facility] MUSE [address] [place] [address] * Interleukin 6 (01/09/2020 4:00 AM CDT) Only the most recent of 4 results within the time period is included. Pathologist [facility] Interleukin 6 <2.5 0.0 - 10.5 pg/mL [place] Comment: [place] This test has not been FDA HOSPITAL [...] revoked sooner. Specimen Blood Performing Organization Address [facility] [place] [address] PATHOLOGY AND GENOMIC MEDICINE [place] [address] [place] [address] * D-dimer (01/09/2020 4:00 AM CDT) Only the most recent of 4 results within the time period is included. D-dimer <0.27 0.00 - 0.40 ug/mL [place] Comment: FEU [place] Units are ug/ml Fibrinogen HOSPITAL Equivalent Unit. [...] Organization Address City/State/ZIP Code P adrien Number [facility] DEPARTMENT OF [address] [place] [address] PATHOLOGY AND GENOMIC MEDICINE [address] * C-reactive protein (01/09/2020 4:00 AM CDT) Only the most recent of 4 results within the time period is included. CRP 1.25 (H) 0.00 - 0.50 mg/dL [facility] Specimen Blood Performing Organization Address City/State/[facility] P adrien Number [facility] [place] [address] PATHOLOGY AND GENOMIC MEDICINE [address] * Phosphorus level (01/09/2020 4:00 AM CDT) Only the most recent of 4 results within the time period is included. Phosphorus 2.5 2.4 - 4.5 mg/dL [facility] Specimen Blood Performing Organization Address City/[facility] Code P adrien Number [facility] [place] [address] PATHOLOGY AND GENOMIC MEDICINE [address] * B natriuretic peptide (01/09/2020 4:00 AM CDT) Only the most recent of 3 results within the time period is included. BNP 154 (H) 0 - 100 pg/mL [facility] Specimen Blood Performing Organization Address City/[facility] Code P adrien Number [facility] DEPARTMENT OF [address] [place] [address] PATHOLOGY AND GENOMIC MEDICINE [address] * Magnesium level (01/09/2020 4:00 AM CDT) Only the most recent of 4 results within the time period is included. Magnesium 2.1 1.6 - 2.4 mg/dL [facility] Specimen Blood Performing Organization Address City/State/ZIP Code P adrien Number [facility] [place] [address] PATHOLOGY AND GENOMIC MEDICINE [address] * Lactic acid level (01/09/2020 4:00 AM CDT) Only the most recent of 3 results within the time period is included. Lactic acid 2.3 (H) 0.5 - 2.2 mmol/L [facility] Specimen Blood Performing Organization Address City/[facility]/ZIP Code P adrien Number [facility] [place] [address] PATHOLOGY AND GENOMIC MEDICINE [address] * Ferritin level (01/09/2020 4:00 AM CDT) Only the most recent of 4 results within the time period is included. Pathologist [facility] Ferritin level 98 13 - 150 ng/mL [facility] Specimen Blood Performing Organization Address City/[facility] P adrien Number [facility] [place] [address] PATHOLOGY AND [facility] MEDICINE [address] * Respiratory pathogen panel (01/07/2020 8:55 PM CDT) Pathologist [facility] Adenovirus PCR Not Detected [place] Comment: [place] Specimen Information HOSPITAL Specimen Source: Nares Specimen Site: Right Coronavirus Not Detected [place] HKU1 [facility] Coronavirus Not Detected [place] NL63 PCR [facility] Coronavirus Not Detected [place] 229E PCR [facility] Coronavirus Not Detected [place] OC43 PCR [facility] Human Not Detected [place] metapneumovirus [place] [facility] Human Not Detected [place] rhinovirus/ente [place] rovirus PCR HOSPITAL Influenza A PCR Not Detected [facility] Influenza A/H1 Not Reported [place] PCR [facility] Influenza A/H3 Not Reported [facility] Influenza Not Reported [place] A/H1-2009 PCR [facility] Influenza B PCR Not Detected [facility] Parainfluenza Not Detected [place] virus 1 [facility] Parainfluenza Not Detected [place] virus 2 PCR [facility] Parainfluenza Not Detected [place] virus 3 [facility] Parainfluenza Not Detected [place] virus 4 [facility] Respiratory Not Detected [place] syncytial virus [place] PCR HOSPITAL Bordetella Not Detected [place] pertussis PCR [facility] Bordetella Not Detected [place] parapertussis [place] PCR [facility] Chlamydia Not Detected [place] pneumoniae PCR [facility] Mycoplasma Not Detected [place] pneumoniae PCR [facility] Influenza A no Not Reported [place] sub type PCR [facility] Specimen Nares - Right Performing Organization Address City/[facility]/ZIP Code P adrien Number [facility] [place] [address] PATHOLOGY AND GENOMIC MEDICINE [place] [id number] [place] [address] * Transthoracic Echocardiogram Complete, (w Contrast, Strain and 3D if needed) (01/07/2020 2:30 PM CDT) Specimen Narrative Performed At [facility] KRISTIANFL Echo cardiography Report [address] [facility] [address], [place] [address] Pat.Name: ZEINAB GUERRA.ID: [id number] .Date: 01/07/2020 Refer.MD: YULIA LEWIS MD Exam Time: 2:05:00 PM Study Type:Routine Echo Height: 64in Weight: 205lb BSA: 1.98 m2 Age: 14 1955,64Y Sex: FEMALE BP: 118/57 HR: 63 bpm Sonogrphr: Jillian Damon BS, RDCS Pat. Stat.:Inpatient Room: [place] [address] Study Status:Final Echo Event ID:[id number] Order ID: [id number] Reason for Study:Heart Failure Procedures: 2D Echo, [...] PA systolic pressure. MEASUREMENTS: 2D Parasternal [place] Ao An 2.4 cm LVPWd 0.98 cm [...] - 01/07/2020 6:15 PM CDT Echocardiography Report [address] [place] [address] Pat.Name: ZEINAB GUERRA.ID: [id number] .Date: 01/07/2020 Refer.MD: YULIA LEWIS MD Exam Time: 2:05:00 PM Study Type:Routine Echo Height: 64in Weight: 205lb BSA: 1.98 m2 Age: 14 1955,64Y Sex: FEMALE BP: 118/57 HR: 63 bpm Sonogrphr: Jillian Damon, BS, RDCS Pat. Stat.:Inpatient Room: [place] [address] Study Status:Final Echo Event ID:[id number] Order ID: [id number] Reason for Study:Heart Failure Procedures: 2D Echo, [...] PA systolic pressure. MEASUREMENTS: 2D Parasternal [place] Ao An 2.4 cm LVPWd 0.98 cm [...] PM Usman Noland M.D. Performing Organization Address City/[facility]/ZIP Code P adrien Number [facility] [address] [place] [address] * XR Chest 1 Vw Portable (01/07/2020 [...] evidence of pleural effusio n, or pneumothorax. [facility]-[id number] Procedure Note Hm Interface, Radiology Results Incoming - 01/07/2020 8:25 AM CDT EXAMINATION: XR CHEST 1 VW PORTABLE CLINICAL HISTORY: ICU pt stable with no clinical status changes, COVID-19 hypoxia COMPARISON: To a previous examination from 01/05/2020 IMPRESSION: Cardiomediastinal silhouette is prominent. Perihilar and basilar consolidation has markedly improved since the previous examination. There is no evidence of pleural effusion, or pneumothorax. [facility]-[id number] Performing Organization Address [facility] Code P adrien Number [facility] [address] [place] [address] * Troponin (01/07/2020 5:25 AM CDT) Only the most recent of 5 results within the time period is included. Troponin 0.129 (H) 0.000 - 0.040 ng/mL [place] Comment: [place] In patients suspected of HOSPITAL having a [...] 0.020 ng/mL Specimen Blood Performing Organization Address City/State/[facility] [place] [address] PATHOLOGY AND GENOMIC MEDICINE [address] * Triglycerides (01/07/2020 5:25 AM CDT) Only the most recent of 2 results within the time period is included. Triglycerides 191 (H) <150 mg/dL [facility] Specimen Blood Performing Organization Address City/State/ZIP [facility] [place] [address] PATHOLOGY AND GENOMIC MEDICINE [address] * Ionized calcium (01/07/2020 5:25 AM CDT) pH 7.41 [facility] Ionized calcium 1.14 1.11 - 1.32 mmol/L [facility] Specimen Blood Performing Organization Address City/State/ZIP Code P adrien Number [address] [place] [address] PATHOLOGY AND GENOMIC MEDICINE [place] [address] [place] [address] * POC glucose (01/06/2020 8:22 PM CDT) POC glucose 99 65 - 99 mg/dL [place] Comment: [place] Safety Teacher Name: [facility] Device ID: [id number] Chartable: [facility] Notified RN Specimen Blood Performing Organization Address City/State/ZIP Code P adrien Number [facility] DEPARTMENT OF [address] [place] [address] PATHOLOGY AND GENOMIC MEDICINE [place] [address] [place] [address] * CT Angiogram Pe Chest (01/06/2020 8:12 [...] be reactive. 4.Other findings as described above. [facility]-[id number] sheath likely Procedure Note [facility], Radiology Results Incoming - 01/06/2020 8:29 PM [...] be reactive. 4.Other findings as described above. [facility]-[id number] sheath likely Performing Organization Address City/[facility]/[place] [address] * COVID-19 qualitative PCR (01/06/2020 12:28 PM CDT) Only the most recent of 2 results within the time period is included. Pathologist [facility] Interpretation Negative results do not [place] preclude 2019-nCoV infection [place] and should not be used as the HOSPITAL sole basis for treatment or other patient management decisions. Negative results must be combined with clinical observations, patient history, and epidemiological information. COVID-19 Not-Detected Not-Detected [place] qualitative PCR [place] result HOSPITAL COVID-19 See link below for PDF Lab [place] qualitative PCR ReportComment: Case Number: [place] [id number] HOSPITAL Specimen Nasopharyngeal swab Performing Organization Address [facility] P adrien Number [facility] [place] [address] PATHOLOGY AND [facility] MEDICINE [address] * Arterial blood gas (01/06/2020 3:58 AM CDT) [facility] pH, arterial 7.38 7.35 - 7.45 [facility] pCO2, arterial 47 (H) 35 - 45 mmHg [facility] pO2, arterial 158 (H) 80 - 90 mmHg [facility] Bicarbonate, 27.4 21.0 - 28.0 mmol/L [facility] Base excess, 2 -2 - 2 mEq/L [facility] O2 saturation, 99 95 - 100 % [facility] Specimen Blood Performing Organization Address [facility] P adrien Number [facility] [place] [address] PATHOLOGY AND GENOMIC MEDICINE [address] * LDH (01/06/2020 3:05 AM CDT) Pathologist [facility] LDH 280 (H) 87 - 225 U/L [facility] Specimen Blood Performing Organization Address City/[facility] P adrien Number [facility] DEPARTMENT OF [address] [place] [address] PATHOLOGY AND GENOMIC MEDICINE [address] * Partial thromboplastin time, activated (01/05/2020 6:30 PM CDT) Pathologist [facility] PTT 31.6 23.0 - 36.0 sec [place] Comment: [place] PTT therapeutic range for HOSPITAL unfractionated heparin is 61.0-112.0 seconds which corresponds to Anti-Xa 0.3-0.7 U/ml. Specimen Blood Performing Organization Address City/[facility] P adrien Number [facility] [place] [address] PATHOLOGY AND GENOMIC MEDICINE [address] * Creatine kinase, total (CPK) (01/05/2020 6:30 PM CDT) [facility] Creatine kinase 74 26 - 192 U/L [facility] Specimen Blood Performing Organization Address [facility] P adrien Number [facility] [place] [address] PATHOLOGY AND GENOMIC MEDICINE [address] * ECG ED Preliminary Interpretation - Not an Order (01/05/2020 6:22 PM CDT) Narrative Performed At Olga Lidia Mcgill MD 01/05/2020 9:47 PM ECG ED Preliminary Interpretation - Not an Order Performed by: Olga Lidia Mcgill MD Authorized by: Olga Lidia Mcgill MD ECG reviewed by ED Physician in the abs ence of a canal boat operator: yes Interpretation: Interpretation: abnormal Rate: ECG rate: [...] / Dates Group Exchange BCBS EXCHANGE BLUE [id number] 2019-P ADVANTAGE resent HMO EXCH Advance Directives For more information, please contact: [phone] Patient Inventory Accountant Explanation Type Date Recorded Advance Directives, Living Will and Medical Power of Tobacco Buyer
--- OUTSIDE RECORDS SUMMARY | 2020-04-06 10:35 | XMS REPORT | Clinical Summary ---
Author Author [facility] Address Unknown Phone Unavailable Care Team Providers Care Server Developer Name Role Phone PCP Unavailable Allergies Not [...]
--- OUTSIDE RECORDS SUMMARY | 2020-04-06 10:36 | XMS REPORT | Continuity of Care Document ---
Author Author [facility] t Organization [facility] Address [address] [place] [address] Phone Unavailable Care Team Providers Care Dynamometer Tester Engine Name Role Phone MD CLIFFORD BULLARD PCP Kajal CHOI AMBICA Attphys Unavailable TOREY LEAHY Attphys Unavailable Lin Parra MD, Lacho Martinez Attphys Sabino HUMAN RESOURCES TRAINING MANAGER, Halima Attphys [phone] Provider, Unknown Attphys Unavailable Johnnie OMER, Jeffrey Attphys Unavailable Nano ALVAREZ, Olga Lidia Attphys Maria Esther Al MD Attphys González ALVAREZ, Sola Attphys TOREY LEAHY Admphys Unavailable MARIA ESTHER AL Admphys Unavailable Payers Payer Name Policy Type Policy Number Effective Date Expiration Date S asmita [employer] Exchange [id number] [facility] BC EXCHANGEBLUE ADVANTAGE HMO [id number] 2020-Pre sentExchange [id number] 2019 00:00:00 [facility] Problems Condition Name Condition Details Condition Category Status Onset Date Resolution Date Last Treatment Date Treating Clinician Comments Source JACQUIE (acute kidney injury) JACQUIE (acute kidney injury) Disease Ac tive 2020-01-07 00:00:[address] Pneumonia due to infectious organism Pneumonia due to infect ious organism Disease Active 2020-01-07 00:00:00 [facility] Prettyist Acute on chronic congestive heart failure Acute on chr onic congestive heart failure Disease Active 2020-01-05 00:00:00 Fadi Powell Sepsis Problem Active 2014-07-28 00:00:00 [facility] Hypotension Problem Active 2014-07-28 00:00:00 [facility] Pneumonia Problem Active 2014-07-28 00:00:00 [facility] Pleural effusion Problem Active 2014-07-28 00:00:00 [facility] Acute renal failure Problem Active 2014-07-28 00:00:00 [facility] Allergies, Adverse Reactions, Alerts Allergy Name Allergy Type Status Severity Reaction(s) Onset Date Inacti ve Date Treating Clinician Comments Source No Known Allergies DA Active U 2019-07-22 00:00:00 [facility] No Known Contrast Allergies DA Active U 2008-09-05 00:00: 00 [facility] No Known Drug Allergies DA Active U 2008-09-05 00:00:00 [facility] No Known Food Allergies DA Active U 2008-09-05 00:00:00 [facility] No Known Other Allergies DA Active U 2008-09-05 00:00:00 [facility] No Known Drug Intolerances DA Active U 2002-03-19 00:00:0 0 [facility] Social History Social Habit Start Date Stop Date Quantity Comments Source History of tobacco use Cigarette Smoker [facility] History SDOH Alcohol Std Drinks [facility] History SDOH Alcohol Binge [facility] Sex Assigned At [facility] Cigarettes smoked current (pack per day) - Reported 00:00:00 2020-01-06 00:00:00 [facility] Tobacco use and exposure 2020-01-06 00:00:00 2020-01-06 00:00:00 Lukasz kiran used [facility] Alcohol intake 2020-01-06 00:00:00 2020-01-06 00:00:00 Lifetime non-drinker (finding) [facility] Powell History SDOH Alcohol Frequency 2020-01-05 00:00:00 2020-01-05 00:00:0 0 1 [facility] Powell Smoking Status Start Date Stop Date Source Current every day smoker 2020-01-06 00:00:00 Marlen singhbisi Powell Medications Ordered Medication Name Filled Medication [...] MG tablet 2020-01-17 15:18:40 Y es 12.5mg [id number] Take 12.5 mg by mouth 3 (three) [...] 8.5 Gm HFA.AER.AD Yes [address] [facility] Alprazolam Alprazolam Yes .25 Every 6 Hours [facility] Atorvastatin Calcium Atorvastatin Calcium Yes 80 Daily [facility] Benzonatate Benzonatate Yes 100 Every 6 Hours as needed for Cough [facility] Captopril Captopril Yes 12.5 Three Times A Day [facility] Carvedilol Carvedilol Yes 12.5 Twice A Day [facility] Fluticasone/Salmeterol (Advair 250-50 Diskus) 1 Each D ISK.W.DEV Fluticasone/Salmeterol (Advair 250-50 Diskus) 1 Each DISK.W.DEV Yes [facility] Montelukast Sodium (Singulair) 10 Mg TABLET Montelukas t Sodium (Singulair) 10 Mg TABLET Yes 10 Daily [facility] Omeprazole Omeprazole Yes 20 Daily [facility] Potassium Potassium Yes [facility] Warfarin Sodium (Coumadin) 5 Mg TABLET Warfarin Sodium (Coumadin ) 5 Mg TABLET Yes 5 Today At 5:00PM [facility] Warfarin Sodium Warfarin Sodium 2014-07-28 00:00:00 No 6 Daily [facility] Vital Signs Vital Name Observation Time Observation Value Comments Source Body Temperature 2020-04-05 16:00:00 98.1 [degF] [facility] Heart Rate 2020-04-05 16:00:00 63 /min [facility] Respiratory rate 2020-04-05 16:00:00 20 /min [facility] BP Systolic 2020-04-05 16:00:00 133 mm[Hg] [facility] BP Diastolic 2020-04-05 16:00:00 77 mm[Hg] [facility] Oxygen saturation by Pulse oximetry 2020-04-05 16:00:00 100 /min [facility] Weight 2020-04-05 09:08:00 202.19 [lb_av] [facility] BMI (Body Mass Index) 2020-04-05 09:08:00 34.7 kg/m2 [facility] Systolic blood pressure 2020-01-10 12:13:03 135 mm[Hg] [facility] Powell Diastolic blood pressure 2020-01-10 12:13:03 76 mm[Hg] [facility] Powell Heart rate 2020-01-10 12:13:03 60 /min [facility] Powell Body temperature 2020-01-10 12:13:03 36 Nikky Fadi [facility] Respiratory rate 2020-01-10 12:13:03 18 /min Fadi [facility] Oxygen saturation in Arterial blood by Pulse oximetry 01-09 12:13:03 96 /min [facility] Body weight 2020-01-10 07:20:00 91.9 kg Sab[facility] Powell BMI 2020-01-10 07:20:00 34.78 kg/m2 [facility] Powell Body height 2020-01-06 01:00:00 162.6 cm [facility] Powell Procedures Procedure Date / Time Performed Performing Clinician [facility] e X-ray of chest, two views 2020-04-04 00:00:00 [facility] Computed tomography of chest without contrast 2020-04-04 00:00:0 0 [facility] HC COMPLETE BLD COUNT W/AUTO DIFF 2020-01-10 06:00:00 Mansoor Claudio COMPREHENSIVE METABOLIC PANEL 2020-01-10 06:00:00 Sola Claudio ESTIMATED GFR 2020-01-10 06:00:00 Sola Claudio Meth odchristiana PROTHROMBIN TIME WITH INR 2020-01-09 15:17:00 Sola Claudio [id number] IGG 2020-01-09 15:16:00 Sola Claudio ECG 12-LEAD 2020-01-09 09:21:21 Boo Calvert ethodist HC COMPLETE BLD COUNT W/AUTO DIFF 2020-01-09 04:50:00 Tiny Lehman LACTIC ACID LEVEL 2020-01-09 04:00:00 Tiny Oakley PHOSPHORUS LEVEL 2020-01-09 04:00:00 Tiny Oakleyist MAGNESIUM LEVEL 2020-01-09 04:00:00 Tiny Oakley erin [facility] COMPREHENSIVE METABOLIC PANEL 2020-01-09 04:00:00 Corona Oakley [facility] C-REACTIVE PROTEIN 2020-01-09 04:00:00 Tiny Oakley [facility] INTERLEUKIN 6 2020-01-09 04:00:00 AdinTinygerda khan [facility] FERRITIN LEVEL 2020-01-09 04:00:00 AdinTiny Ella [facility] D-DIMER 2020-01-09 04:00:00 Adin, Tiny Ella Powell B NATRIURETIC PEPTIDE 2020-01-09 04:00:00 Barry Fitch ESTIMATED GFR 2020-01-09 04:00:00 Adin Tiny Ella Powell ECG 12-LEAD 2020-01-08 09:19:00 Boo Calvert M ethodist HC COMPLETE BLD COUNT W/AUTO DIFF 2020-01-08 03:50:00 Librado rodriguez Tiny Jaramillo [facility] LACTIC ACID LEVEL 2020-01-08 03:50:00 [place] [facility] PHOSPHORUS LEVEL 2020-01-08 03:50:00 AdinTiny [facility] MAGNESIUM LEVEL 2020-01-08 03:50:00 [place] Edda erin Powell COMPREHENSIVE METABOLIC PANEL 2020-01-08 03:50:00 [place] [facility] C-REACTIVE PROTEIN 2020-01-08 03:50:00 AdinTiny [facility] INTERLEUKIN 6 2020-01-08 03:50:00 AdinTiny Ella khan [facility] FERRITIN LEVEL 2020-01-08 03:50:00 [place] Ella Edda erin Powell D-DIMER 2020-01-08 03:50:00 Adin Coronajohnyhieu Ella Powell ESTIMATED GFR 2020-01-08 03:50:00 Adin Coronajohnyhieu Ella Powell RESPIRATORY PATHOGEN PANEL WITH COVID-19 2020-01-07 20:55:00 Gagan Ellis TTE COMPLETE, W CONTRAST, W DOPPLER ([id number]) 2020-01-07 14:30 :00 Pham Sahuhuma Zaidisanjivreyes [facility] XR CHEST 1 VW PORTABLE 2020-01-07 07:15:00 Tiny Oakley HC COMPLETE BLD COUNT W/AUTO DIFF 2020-01-07 05:25:00 Tiny Lehman LACTIC ACID LEVEL 2020-01-07 05:25:00 Denita Oakleyhieu Ella Powell PHOSPHORUS LEVEL 2020-01-07 05:25:00 Denita Oakleyhieu Ella [facility] MAGNESIUM LEVEL 2020-01-07 05:25:00 Tiny Oakley TROPONIN 2020-01-07 05:25:00 Tiny Oakley IONIZED CALCIUM 2020-01-07 05:25:00 Tiny Oakley COMPREHENSIVE METABOLIC PANEL 2020-01-07 05:25:00 Corona Oakley navneet Ella Powell C-REACTIVE PROTEIN 2020-01-07 05:25:00 Tiny Oakley TRIGLYCERIDES 2020-01-07 05:25:00 Tiny Oakley INTERLEUKIN 6 2020-01-07 05:25:00 Tiny Oakley FERRITIN LEVEL 2020-01-07 05:25:00 Tiny Oakley D-DIMER 2020-01-07 05:25:00 Tiny Oakley ESTIMATED GFR 2020-01-07 05:25:00 Denita Oakleyhieu Ella Powell POC GLUCOSE 2020-01-06 20:22:00 Maria Esther Al odchristiana CT ANGIOGRAM PE CHEST 2020-01-06 20:12:29 Tiny Oakley [facility] TROPONIN 2020-01-06 19:00:00 Boo Calvert M ethodist COVID-19 QUALITATIVE PCR 2020-01-06 12:28:00 Tiny Oakley [facility] ARTERIAL BLOOD GAS 2020-01-06 03:58:00 Dexter Lizama [facility] PHOSPHORUS LEVEL 2020-01-06 03:05:00 Jaxon Sahulington Christiemerritt higginbotham [facility] MAGNESIUM LEVEL 2020-01-06 03:05:00 Luis AlbertoLissett Jessica damion [facility] HC COMPLETE BLD COUNT W/AUTO DIFF 2020-01-06 03:05:00 Lissett Sahu [facility] INTERLEUKIN 6 2020-01-06 03:05:00 Phma Sahuton Jessica dumontmerritt [facility] COMPREHENSIVE METABOLIC PANEL 2020-01-06 03:05:00 Rajan Sahu [facility] D-DIMER 2020-01-06 03:05:00 Lissett Sahu [facility] TRIGLYCERIDES 2020-01-06 03:05:00 Lissett Sahu [facility] LDH 2020-01-06 03:05:00 Luis Alberto [place] Jessica bruno [facility] FERRITIN LEVEL 2020-01-06 03:05:00 Lissett Sahu [facility] C-REACTIVE PROTEIN 2020-01-06 03:05:00 Lissett Sahu [facility] B NATRIURETIC PEPTIDE 2020-01-06 03:05:00 Lissett Sahu rendendamion [facility] ESTIMATED GFR 2020-01-06 03:05:00 Lissett Sahumerritt [facility] TROPONIN 2020-01-06 00:55:00 Olga Lidia Mcgill Meth odist TROPONIN 2020-01-05 22:00:00 Olga Lidia Mcgill Meth odchristiana COVID-19 QUALITATIVE PCR 2020-01-05 19:46:00 Olga Lidia Mcgill [facility] XR CHEST 1 VW PORTABLE 2020-01-05 18:53:47 Olga Lidia Mcgill on [facility] HC COMPLETE BLD COUNT W/AUTO DIFF 2020-01-05 [...] ESTIMATED GFR 2020-01-05 18:30:00 Olga Lidia Mcgill OR CRITICAL CARE, E/M 30-74 MINUTES 2020-01-05 18:22:37 Edda Mcgill ECG ED PRELIMINARY INTERPRETATION 2020-01-05 18:22:37 Pedro Luis Mcgill ECG 12-LEAD 2020-01-05 18:20:05 Olga Lidia Mcgill Plan of Care Planned Activity Planned Date Details Comments Source Future Scheduled Test 2019-12-16 00:00:00 INFLUENZA VACCINE [code = INFLUENZA VACCINE] [facility] Future Scheduled Test 2007 00:00:00 BREAST CANCER SCRE ENING [code = BREAST CANCER SCREENING] [facility] Future Scheduled Test 2007 00:00:00 COLONOSCOPY SCREEN ING [code = COLONOSCOPY SCREENING] [facility] Future Scheduled Test 2007 00:00:00 SHINGLES VACCINES (#1) [code = SHINGLES VACCINES (#1)] [facility] Future Scheduled Test 1978 00:00:00 Screening for daryn gnant neoplasm of cervix (procedure) [code = 726225599] Sabas perez Instructions Congestive Heart Failure [facility] Encounters Start Date/Time End Date/Time Encounter Type Admission Type Attendi [facility] Care Department Encounter ID Source 2020-03-26 20:30:00 Inpatient E [facility] [id number] [facility] 2020-04-03 12:23:00 2020-04-05 17:11:00 Discharged Inpatient 1 TOREY LEAHY [facility] [id number] [facility] 2020-01-05 00:00:00 2020-01-10 00:00:00 Inpatient SOLA CLAUDIO [facility] [id number] [facility] Results Test Description Test Time Test Comments Results Result Comments Source CHEST SINGLE (PORTABLE) 2020-04-06 08:31:00 [facility] : 1955 Sex: F [facility] [address] [place] [address] Patient Name: JERRY GUERRA MR #: [id number] : 1955 Age/Sex: 64/F Req #: [id number] Adm Physician: Ordered by: KELLY CHOI DO Report #: [id number] Location: ER Room/Bed: Procedure: [id number] DX/CHEST SINGLE (PORTABLE) Exam Date: Exam Time: [...] DO CHEST SINGLE (PORTABLE) 2020-04-05 08:27:00 [facility] 1955 Sex: [place] [address] Patient Name: JERRY GUERRA MR #: [id number] : 1955 Age/Sex: 64/F Req #: [id number] Adm Physician: OTREY LEAHY MD Ordered by: MALISSA DIAZ MD Report #: [id number] Location: [facility] Room/Bed: IMCU 199-1 Procedure: [id number] DX/CHEST SINGLE (PORTABLE) Exam Date: 04/05/20 Exam [...] (test code = 6690-2) 9.40 10*3/uL 4.8-10.8 [facility] automated count (number/volume)2020-04-05 04:45:00* Test Item Value Reference Range Interpretation Comments Red Blood Count (test code = 789-8) 4.47 10*6/mL 3.6-5.1 [facility] hemoglobin measurement (moles/volume)2020-04-05 04:45:00* Test Item Value Reference Range Interpretation Comments Hemoglobin (test code = 99715-0) 13.7 g/dL 12.0-16.0 [facility] CenterAutomated blood hematocrit (volume fraction)2020-04-05 04:45:00* Test Item Value Reference Range Interpretation Comments Hematocrit (test code = 4544-3) 43.1 % 34.2-44.1 [facility] CenterAutomated erythrocyte mean corpuscular xihybv7666-57-71 04:45:00* Test Item Value Reference Range Interpretation Comments Mean Corpuscular Volume (test code = 787-2) 96.4 81-99 [facility] CenterAutomated erythrocyte mean corpuscular hemoglobin (mass per erythrocyte)2020-04-05 04:45:00* Test Item Value Reference Range Interpretation Comments Mean Corpuscular Hemoglobin (test code = 785-6) 30.6 pg 28-32 [facility] CenterAutomated erythrocyte mean corpuscular hemoglobin concentration measurement (mass/volume)2020-04-05 04:45:00* Test Item Value Reference Range Interpretation Comments Mean Corpuscular Hemoglobin Concent (test code = 786-4) 31.8 g/dL 31-35 [facility] CenterRDW XhzMm-Gaf5017-37-20 04:45:00* Test Item Value Reference Range Interpretation Comments Red Cell Distribution Width (test code = 02476-0) 15.3 % 11.7 -14.4 [facility] CenterAutomated blood platelet count (count/volume)2020-04-05 04:45:00* Test Item Value Reference Range Interpretation Comments Platelet Count (test code = 777-3) 179 10*3/uL 140-360 [facility] CenterAutomated blood segmented neutrophil count as percentage of total pqxqdwrtle4081-30-34 04:45:00* Test Item Value Reference Range Interpretation Comments Neutrophils (%) (Auto) (test code = 35354-7) 64.0 % 38.7-80.0 [facility] CenterAutomated blood lymphocyte count as percentage ot total gfsryosgds5963-68-88 04:45:00* Test Item Value Reference Range Interpretation Comments Lymphocytes (%) (Auto) (test code = 736-9) 20.6 % 18.0-39.1 [facility] CenterAutomated blood monocyte count as percentage of total rkpazfbcod3087-24-51 04:45:00* Test Item Value Reference Range Interpretation Comments Monocytes (%) (Auto) (test code = 5905-5) 7.9 % 4.4-11.3 [facility] CenterAutomated blood eosinophil count as percentage of total htclmcjxdw7270-73-88 04:45:00* Test Item Value Reference Range Interpretation Comments Eosinophils (%) (Auto) (test code = 713-8) 5.6 % 0.0-6.0 [facility] CenterAutomated blood basophil count as percentage of total hjacvrswtj1636-11-86 04:45:00* Test Item Value Reference Range Interpretation Comments Basophils (%) (Auto) (test code = 706-2) 0.4 % 0.0-1.0 [facility] CenterFluoroscopic procedure less than one hour qibksdle5542-05-84 04:45:00* Test Item Value Reference Range Interpretation Comments IM GRANULOCYTES % (test code = IM GRANULOCYTES %) 1.5 % 0.0- 1.0 [facility] CenterAutomated blood neutrophil count 2020-04-05 04:45:00* Test Item Value Reference Range Interpretation Comments Neutrophils # (Auto) (test code = 751-8) 6.0 2.1-6.9 [facility] CenterBlood lymphocytes count (number/volume) 2020-04-05 04:45:00* Test Item Value Reference Range Interpretation Comments Lymphocytes # (Auto) (test code = 00369-5) 1.9 1.0-3.2 [facility] CenterBlood monocytes automated count (number/volume)2020-04-05 04:45:00* Test Item Value Reference Range Interpretation Comments Monocytes # (Auto) (test code = 742-7) 0.7 0.2-0.8 [facility] CenterAutomated blood eosinophil count 2020-04-05 04:45:00* Test Item Value Reference Range Interpretation Comments Eosinophils # (Auto) (test code = 711-2) 0.5 0.0-0.4 [facility] CenterAutomated blood basophil count (count/volume)2020-04-05 04:45:00* Test Item Value Reference Range Interpretation Comments Basophils # (Auto) (test code = 704-7) 0.0 0.0-0.1 [facility] CenterFluoroscopic procedure less than one hour ojrcsbtg4378-34-57 04:45:00* Test Item Value Reference Range Interpretation Comments Absolute Immature Granulocyte (auto (kameron t code = Absolute Immature Granulocyte (auto) 0.14 10*3/uL 0-0.1 [facility] CenterProthrombin time (PT) in platelet poor plasma by coagulation oudxp8395-77-18 04:45:00* Test Item Value Reference Range Interpretation Comments Prothrombin Time (test code = 5902-2) 21.9 s 11.9-14.5 [facility] CenterINR in Platelet poor plasma by Coagulation sfkek9970-70-09 04:45:00* Test Item Value Reference Range Interpretation Comments Prothromb Time International Ratio (test code = 6301-6) 1.81 Oral Anticoagulant Therapy INR Values:1. Low Intensity Therapy 1.5 - 2.02 . Moderate Intensity Therapy 2.0 - 3.03. High Intensity Therapy(1) 2.5 - 3. 54. High Intensity Therapy(2) 3.0 - 4.05. Panic Value INR > 5.0 [facility] plasma sodium measurement (moles/volume)2020-04-05 04:45:00* Test Item Value Reference Range Interpretation Comments Sodium Level (test code = 2951-2) 137 mmol/L 136-145 [facility]icserum or plasma potassium measurement (moles/volume)2020-04-05 04:45:00* Test Item Value Reference Range Interpretation Comments Potassium Level (test code = 2823-3) 3.9 mmol/L 3.5-5.1 [facility]ics[facility] or plasma chloride measurement (moles/volume)2020-04-05 04:45:00* Test Item Value Reference Range Interpretation Comments Chloride Level (test code = 2075-0) 97 mmol/L 98-107 [facility]icserum or plasma carbon dioxide, total measurement (moles/volume)2020-04-05 04:45:00* Test Item Value Reference Range Interpretation Comments Carbon Dioxide Level (test code = 2028-9) 32 mmol/L 22-29 [facility]icserum or plasma anion bsz8165-05-37 04:45:00* Test Item Value Reference Range Interpretation Comments Anion Gap (test code = 65106-5) 11.9 mmol/L 8-16 [facility]icserum or plasma urea nitrogen measurement (mass/volume)2020-04-05 04:45:00* Test Item Value Reference Range Interpretation Comments Blood Urea Nitrogen (test code = 3094-0) 30 mg/dL 7- [facility]icserum or plasma creatinine measurement (mass/volume)2020-04-05 04:45:00* Test Item Value Reference Range Interpretation Comments Creatinine (test code = 2160-0) 1.24 mg/dL 0.57-1.11 [facility]icserum or plasma urea nitrogen/creatinine mass acnpx3812-74-93 04:45:00* Test Item Value Reference Range Interpretation Comments BUN/Creatinine Ratio (test code = 3097-3) 24 6- [facility] CenterEstimated glomerular filtration rate (GFR) jsvabkzhndfhz0723-30-72 04:45:00* Test Item Value Reference Range Interpretation Comments Estimat Glomerular Filtration Rate (test code = 319433681) 44 mL/mi n >60 Ranges were taken from the National Kidney Disease Education Program and the [facility] literature.Reference ranges:60 or greater: Mihdry57-78 ( for 3 consecutive months): Chronic kidney disease 15 or less: Kidney failureSaint Camillus Medical CenterGlucose kpbylejhgcv3763-54-15 04:45:00* Test Item Value Reference Range Interpretation Comments Glucose Level (test code = CLS5141) 114 mg/dL 74-118 [facility]icserum or plasma calcium measurement (mass/volume)2020-04-05 04:45:00* Test Item Value Reference Range Interpretation Comments Calcium Level (test code = 07309-8) 8.3 mg/dL 8.4-10.2 [facility]icserum or plasma total bilirubin measurement (mass/volume)2020-04-05 04:45:00* Test Item Value Reference Range Interpretation Comments Total Bilirubin (test code = 1975-2) 0.7 mg/dL 0.2-1.2 [facility] CenterFluoroscopic procedure less than one hour isspelsj9539-79-70 04:45:00* Test Item Value Reference Range Interpretation Comments Aspartate Amino Transf (AST/SGOT) (test code = Aspartate Amino Transf (AST/SGOT)) 14 [IU]/L 5-34 [facility] Clinicserum or plasma alanine aminotransferase measurement (enzymatic activity/volume)2020-04-05 04:45:00* Test Item Value Reference Range Interpretation Comments Alanine Aminotransferase (ALT/SGPT) (test code = 1742-6) 21 [IU]/L 0-55 [facility]icserum or plasma protein measurement (mass/volume)2020-04-05 04:45:00* Test Item Value Reference Range Interpretation Comments Total Protein (test code = 2885-2) 5.9 g/dL 6.5-8.1 [facility]icserum or plasma albumin measurement (mass/volume)2020-04-05 04:45:00* Test Item Value Reference Range Interpretation Comments Albumin (test code = 1751-7) 3.3 g/dL 3.5-5.0 [facility] CenterPlasma globulin measurement (mass/volume) 2020-04-05 04:45:00* Test Item Value Reference Range Interpretation Comments Globulin (test code = 99003-6) 2.6 g/dL 2.3-3.5 [facility]icserum or plasma albumin/globulin mass ffxzl5004-05-44 04:45:00* Test Item Value Reference Range Interpretation Comments Albumin/Globulin Ratio (test code = 1759-0) 1.3 0.8-2.0 [facility]icserum or plasma alkaline phosphatase measurement (enzymatic activity/volume)2020-04-05 04:45:00* Test Item Value Reference Range Interpretation Comments Alkaline Phosphatase (test code = 6768-6) 47 [IU]/L 40-150 [facility] CenterCT CHEST [id number] 15:16:[address] [facility] 1955 Sex: F* [facility] [address] [place] [address] Patient Name: JERRY GUERRA MR #: [id number] : 1955 Age/Sex: 64/F Req #: [id number] [facility] Physician: TOREY LEAHY MD Ordered by: TOREY LEAHY MD Report #: [id number] Location: [facility] Room/Bed: [place] [address] Procedure: [id number] CT/CT CHEST WO Exam Date: 03/17 02/03 Exam Time: 1214 REPORT STATUS: Signed EXAM: CT Chest WITHOUT intravenous contras t 04/04/2020 12:15 PM INDICATION: shortness of breath [id number] COMPARISON: X-ray dated the same day TECHNIQUE: Chest was scanned [employer] a multidetector helical scanner from the [...] MD CHEST 2 VIEWS 2020-04-04 09:02:[address] [facility] : 1955 Sex: F* [facility] [address] [facility] [place] [id number] Patient Name: JERRY GUERRA MR #: [id number] : 1955 Age/Sex: 64/F Req #: [id number] Adm Physician: TOREY LEAHY MD Ordered by: AUSTIN DUBOIS MD Report #: [id number] Location: [facility] Room/Bed: [place] [address] Procedure: [id number] DX/CHEST 2 VIEWS Exam Date: Exam Time: [...] 04/04/20904 COPY TO: AUSTIN DUBOIS MD Phosphorus irgxjsmwizt9871-00-05 04:35:00* Test Item Value Reference Range Interpretation Comments Phosphorus Level (test code = YHC8877) 3.3 mg/dL 2.3-4.7 [facility]icserum or plasma magnesium measurement (mass/volume)2020-04-04 04:35:00* Test Item Value Reference Range Interpretation Comments Magnesium Level (test code = 96425-4) 1.8 mg/dL 1.3-2.1 [facility] one hour rrasenzq4896-81-54 14:51:00* Test Item Value Reference Range Interpretation Comments Lactic Acid Level (test code = Lactic Acid Level) 1.9 mmol/L 0.5- 2.0 [facility]Flu[facility] procedure less than one hour lmcgbbid3809-98-86 09:11:00* Test Item Value Reference Range Interpretation [...] test is a rapid, real-time RT-PCR te intended for the qualitative detection of nucleic [...] EUA is revoked under 564(g) of the ACT.[facility]Fluoroscopic procedure less than one hour sgjzhrje5069-12-92 09:05:00* Test Item Value Reference Range Interpretation Comments Venous Blood pH (test code = Venous Blood pH) 7.294 7.35-7.3 8 [facility]Flu[facility] procedure less than one hour omzwugio5154-34-79 09:05:00* Test Item Value Reference Range Interpretation Comments Venous Blood Partial Pressure CO2 (test code = Venous Blood Partial Pressure CO2) 66.9 44-48 [facility]Flu[facility] procedure less than one hour engnsxch0996-21-20 09:05:00* Test Item Value Reference Range Interpretation Comments Venous Blood Partial Pressure O2 (test code = Venous B lood Partial Pressure O2) 96 40-41 [facility] procedure less than one hour ztwsbykv8933-80-56 09:05:00* Test Item Value Reference Range Interpretation Comments Venous Blood HCO3 (test code = Venous Blood HCO3) 32.4 21-2 2 [facility]Flu[facility] procedure less than one hour wexmgruo4628-80-68 09:05:00* Test Item Value Reference Range Interpretation Comments Venous Blood Total Carbon Dioxide (test code = Venous Blood Total Carbon Dioxide) 34 [facility] procedure less than one hour kqivsgua6158-28-36 09:05:00* Test Item Value Reference Range Interpretation Comments Venous Blood Base Excess (test code = Venous Blood Base Excess) 6 [facility]Flu[facility] procedure less than one hour jqbtaebi3258-26-70 09:05:00* Test Item Value Reference Range Interpretation Comments Venous Blood Oxygen Saturation (test code = Venous Blood Oxy gen Saturation) 96 [facility]Flu[facility] procedure less than one hour fhfiqnlr6890-82-50 09:05:00* Test Item Value Reference Range Interpretation Comments FiO2 (test code = FiO2) 100 % pt on BIPAP 10/5 RR 14 FIO2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
[2020-04-06 11:01] LABS: ABG PCO2 60 mmHg (35-45); ABG PH 7.33 (7.35-7.45); ABG PO2 306 mmHg (80-105)
[2020-04-06 11:02] LABS: ABG HCO3 32 mmol/L (22-26); ABG TCO2 33
[2020-04-06] MEDS: ONDANSETRON HCL INJ 2MG/ML 2ML 2 MG/ML VIAL IV STA ×2 (11:44→12:03)
--- NOTE | 2020-04-06 12:42 | Diagnostic Imaging Report ---
EXAM: CT Chest WITH contrast 04/06/2020 11:15 AM INDICATION: ^Y ^r/o PE COMPARISON: CT of the chest on 04/04/2020. TECHNIQUE: Chest was scanned utilizing a multidetector helical scanner from the lung apex through the level of the adrenal glands with administration of IV contrast. Coronal and sagittal reformations were obtained. Routine protocol was performed. IV CONTRAST: 100 mL of Omnipaque 300 COMPLICATIONS: None RADIATION DOSE: Total DLP: 521 mGy*cm Estimated effective dose: (DLP x 0.014 x size factor) mSv CTDIvol has been reviewed. It is below the limits set by the Radiation Protocol Committee (RPC). Dose modulation, iterative reconstruction, and/or weight based adjustment of the mA/kV was utilized to reduce the radiation dose to as low as reasonably achievable. FINDINGS: LINES/ TUBES: None. VASCULAR: There are no filling defects within the pulmonary arteries to the segmental level. The main pulmonary artery has normal caliber measuring 2.2 cm. The ascending and descending aorta have normal enhancement and caliber measuring 3.1 cm and 2.6 cm, respectively. LUNGS , PLEURA AND AIRWAYS: There is redemonstration of nonspecific pleural-based scarring and groundglass opacities within the anterior aspect of the upper lobes. No focal consolidation, pleural effusion or pneumothorax. Right basilar scarring is also unchanged. No suspicious pulmonary nodules/mass. The central airways are patent. HEART AND MEDIASTINUM: The thyroid gland is normal. No mediastinal, hilar or axillary lymphadenopathy. The heart is normal in size. There is no pericardial effusion. There are significant atherosclerotic calcifications in the aorta and coronary arteries. UPPER ABDOMEN: Unremarkable. BONES: There are degenerative changes in the thoracic spine. SOFT TISSUES: Unremarkable. IMPRESSION: 1. No evidence of pulmonary embolism to the segmental levels. 2. Redemonstration of nonspecific pleural-based scarring and groundglass opacities within the anterior aspect of the upper lobes. No focal consolidation, pleural effusion or pneumothorax. Findings could be related to resolving infection versus recent inhalational insult. Consider follow-up CT in 6-12 months to assess for resolution as previously recommended. Signed by: Juan Mckeon MD on 04/06/2020 12:39 PM
[2020-04-06 13:18] VITALS: BP 119/58
[2020-04-06 13:19] VITALS: BP 119/58
[2020-04-06 13:30] VITALS: BP 119/58
[2020-04-06] MEDS ORDERED: DEXTROSE 50% SYRINGE 50 ML IV PRN (13:45)
[2020-04-06] MEDS ORDERED: POLYETHYLENE GLYCOL 3350 17 GM PACK PO PRN (13:45)
[2020-04-06] MEDS ORDERED: BENZONATATE 100 MG CAP PO PRN (13:45)
[2020-04-06] MEDS ORDERED: GUAIFENESIN/CODEINE 10 ML CUP PO PRN (13:45)
[2020-04-06] MEDS ORDERED: ONDANSETRON HCL INJ 2MG/ML 2ML 2 MG/ML VIAL IV PRN (13:45)
[2020-04-06] MEDS ORDERED: TRAMADOL HCL 50 MG TAB PO PRN (13:45)
[2020-04-06] MEDS ORDERED: POTASSIUM CHLORIDE 20 MEQ TAB CR PO PRN (13:45)
[2020-04-06] MEDS ORDERED: ACETAMINOPHEN 325 MG TAB PO PRN (13:45)
[2020-04-06] MEDS ORDERED: HYDRALAZINE HCL 20 MG/ML VIAL IV PRN (13:45)
[2020-04-06] MEDS ORDERED: DOCUSATE SODIUM 100 MG CAP PO PRN (13:45)
[2020-04-06] MEDS ORDERED: MELATONIN 5 MG TABLET PO PRN (13:45)
[2020-04-06] MEDS ORDERED: SODIUM CHLORIDE 0.9% 250ML 250 ML ONE (14:54)
[2020-04-06] MEDS: METHYLPREDNISOLONE SOD SUCC 40 MG/ML VIAL 1ML IV SCH ×2 (15:08→22:07)
[2020-04-06] MEDS: CEFTRIAXONE SOD 1 GM/NS 50 ML 50 ML IV SCH (15:08)
--- NOTE | 2020-04-06 15:18 | Consultation ---
DATE OF CONSULTATION: Pulmonary consultation. REASON FOR CONSULT: Shortness of breath. HISTORY OF PRESENT ILLNESS: Ms. Pena is a 64-year-old female. She came in to the emergency room with sudden onset of shortness of breath. She was discharged on April 05. The patient has a longstanding history of smoking, quit few weeks ago. She has been a smoker for 30+ years. She also has history of heart failure. She reported that she drank her coffee this morning and suddenly started having extreme shortness of breath, so she called EMS. She sees Dr. Wade, who is a regular doctor's assistant. She denies any complaints of nausea, vomiting. Her breathing has improved. She was put on BiPAP. She underwent chest CT in the emergency room, which showed no evidence of pulmonary embolism. Ground-glass opacities in the upper lobes. REVIEW OF SYSTEMS: GENERAL: Denies any fever or chills. HEAD: Denies any head trauma. ENT: Denies any earache. CVS: Denies any chest pain. RESPIRATORY: Shortness of breath. PAST MEDICAL HISTORY: COPD and hypertension. FAMILY AND SOCIAL HISTORY: Ex-smoker, quit smoking for 30 years. PHYSICAL EXAMINATION: VITAL SIGNS: Temperature 98.8, pulse of 83, blood pressure 120/84, O2 saturation 100% on 4 L. HEENT: Head atraumatic and normocephalic. NECK: Supple. CHEST: Clear to auscultation. No wheezing. HEART: S1, S2 audible. ABDOMEN: Soft. EXTREMITIES: No pedal edema. NEUROLOGIC: Awake and alert. LABORATORY DATA: Reviewed. White count of 13,000, hemoglobin 15.5. Chemistry, sodium 138, potassium 5.0, chloride 98, BUN 26, and creatinine 1.14. ASSESSMENT/PLAN: Ms. Pena came in with shortness of breath, has a history of COPD. CT of the chest is not showing any significant finding and does not seem like that she had pulmonary edema, possibly had a panic attack versus anxiety or mild pulmonary edema. The patient has improved now. PLAN: Agree with IV diuretics, steroids, antibiotic, oxygen as needed to keep the O2 saturation more than or equal to 92%. Discussed with at bedside. MD RAY Garza/GHASSAN /[id number]
[2020-04-06 16:00] VITALS: BP 152/92
[2020-04-06 16:16] LABS: CREATINE KINASE MB 2.4 ng/mL (0-5.0)
[2020-04-06] MEDS: ENOXAPARIN SOD INJ 40 MG/0.4 ML SYR SC SCH (17:15)
[2020-04-06] MEDS ORDERED: SODIUM CHLORIDE 0.9% 50ML 50 ML ONE (18:10)
[2020-04-06] MEDS ORDERED: IOPAMIDOL 370 MG/ML 200 ML INFUS..BTL INJ ONE (18:11)
[2020-04-06] MEDS: ALBUTEROL/IPRATROPIUM 3 ML NEB NEB PRN (18:55)
[2020-04-06 20:08] VITALS: BP 148/55
[2020-04-06] MEDS: FUROSEMIDE INJ 10 MG/ML 4 ML VIAL IV SCH (20:55)
[2020-04-06] MEDS: CAPTOPRIL 25 MG TAB PO SCH (20:56)
[2020-04-06 21:30] LABS: INR 1.53; PROTHROMBIN TIME 19.1 seconds (11.9-14.5)
[2020-04-06 21:41] LABS: CREATINE KINASE MB 2.5 ng/mL (0-5.0)
--- NOTE | 2020-04-06 21:43 | History and Physical ---
CHIEF COMPLAINT: Shortness of breath. HISTORY OF PRESENT ILLNESS: This is a 64-year-old female, morbidly obese, known history of COPD, systolic heart failure, very noncompliant with her medical care and medications, who comes into the ED after just being discharged yesterday with underlying shortness of breath. The patient was admitted and was treated with IV antibiotics, neb treatments, and diuretics, was being treated for more acute exacerbation of CHF now reports with worsening shortness of breath since yesterday. She reports that she did take her diuretics earlier this morning. She stated that she woke up this morning and felt short of breath suddenly. Denies any chest pain, palpitation, nausea, or vomiting. She reports that she did take her diuretics this morning. No other complaints at this time. REVIEW OF SYSTEMS: Pertinent positive shortness of breath, orthopnea, dyspnea on exertion. The rest of 14-point review of systems have been reviewed with the patient and are negative. ALLERGIES: NO KNOWN DRUG ALLERGIES. HOME MEDICATIONS: Lipitor, captopril, Coreg, Advair, Singulair, warfarin, omeprazole, Tessalon Perles, Xanax, and albuterol. PAST MEDICAL HISTORY: Hypertension, COPD, systolic heart failure, and medical noncompliance. PAST SURGICAL HISTORY: She has had left heart catheterization in the past. PAST FAMILY HISTORY: Family history of smokers. SOCIAL HISTORY: She is a smoker, quit smoking for 30 years now. No drugs or any alcohol. PHYSICAL EXAMINATION: VITAL SIGNS: Temperature is 98.3, pulse 66, respiratory rate 15, blood pressure 152/92, and pulse ox 96% on 4 L nasal cannula. GENERAL: Not in acute distress. Alert and oriented x3. She is cooperative on examination. She was stable when I evaluated her. PULMONARY: Clear to auscultation bilaterally. She does have decreased breath sounds bilaterally. No crackles, no rhonchi, no rales. CARDIOVASCULAR: Positive S1 and S2. No murmurs, rubs, or gallops. ABDOMEN: Soft, nontender to palpation. Bowel sounds present. MUSCULOSKELETAL: Strength is 5/5 throughout. NEUROLOGICAL: Alert and oriented x3. PSYCHIATRIC: Normal affect and mood. LABORATORY DATA: Show white count 13.7, hemoglobin 15, hematocrit 47.9, and platelets of 227. Chemistry sodium 138, potassium 5, chloride 98, bicarb 20, anion gap of 17, BUN 26, creatinine is 1.1, glucose is 133. LFTs within normal range. BNP is 38. Troponins were all negative. Albumin 3.7. ABG pH 7.3, pCO2 60, PaO2 306, bicarbonate is 32. Coronavirus not detected. MICROBIOLOGY: Blood cultures are pending. IMAGING STUDIES: Chest x-ray shows mild interstitial prominence throughout both lungs likely represent pulmonary edema congestion. Bibasilar atelectasis. No consolidation or pleural effusion noted or pneumothorax. Chest CT shows no evidence of pulmonary embolism to segmental levels. There are some ground-glass opacities in the anterior aspect of the upper lobes. No focal consolidation, pleural effusion or pneumothorax. IMPRESSION: 1. Acute exacerbation of chronic obstructive pulmonary disease. 2. History of anxiety, possibly underlying panic attack. 3. Acute exacerbation of congestive heart failure with systolic and diastolic dysfunction. 4. Morbidly obese. 5. Hypertension. PLAN: At this time, continue with IV steroids, neb treatments, antibiotic therapy, Advair, and Pulmonary consultation. Continue with diuretics cardioprotective medications and Cardiology has been consulted. Resume same home medications. PRN hydralazine. PT/OT evaluation. Warfarin for underlying DVT prophylaxis. The patient has been on warfarin for a significant number of years. We will continue same plan of care and monitor very closely. MD HERRERA Virk/MODL /[id number]
[2020-04-07] VITALS (8 sets, daily range): BP systolic 120–137; BP diastolic 57–80
[2020-04-07 05:04] LABS: BASOPHILS # (AUTO) 0.1 (0.0-0.1); BASOPHILS % 0.4 % (0.0-1.0); EOSINOPHILS # (AUTO) 0.1 (0.0-0.4); EOSINOPHILS % 0.2 % (0.0-6.0); HEMATOCRIT 44.5 % (34.2-44.1); HEMOGLOBIN 14.2 g/dL (12.0-16.0); LYMPHOCYTES # (AUTO) 0.6 (1.0-3.2); LYMPHOCYTES % 2.8 % (18.0-39.1); MEAN CORPUSCULAR HEMOGLOBIN 30.6 pg (28-32); MEAN CORPUSCULAR HGB CONC 31.9 g/dL (31-35); MEAN CORPUSCULAR VOLUME 95.9 fL (81-99); MONOCYTES # (AUTO) 0.5 (0.2-0.8); MONOCYTES % 2.3 % (4.4-11.3); NEUTROPHILS # (AUTO) 20.5 (2.1-6.9); NEUTROPHILS % 93.3 % (38.7-80.0); PLATELET COUNT 191 x10e3/uL (140-360); RED BLOOD COUNT 4.64 x10e6/uL (3.6-5.1); RED CELL DISTRIBUTION WIDTH 15.1 % (11.7-14.4)
[2020-04-07 05:26] LABS: ALBUMIN 3.6 g/dL (3.5-5.0); ALBUMIN/GLOBULIN RATIO 1.2 (0.8-2.0); ANION GAP 14.6 mmol/L (8-16); CALCIUM 9.1 mg/dL (8.4-10.2); CREATININE, SERUM 1.27 mg/dL (0.57-1.11); POTASSIUM 4.6 mmol/L (3.5-5.1)
[2020-04-07 05:34] LABS: CREATINE KINASE MB 2.1 ng/mL (0-5.0)
[2020-04-07 05:47] LABS: THYROID STIMULATING HORMONE 0.39 uIU/mL (0.350-4.940)
[2020-04-07] MEDS: PANTOPRAZOLE SOD 40 MG TABEC PO SCH (07:54)
[2020-04-07] MEDS: METHYLPREDNISOLONE SOD SUCC 40 MG/ML VIAL 1ML IV SCH ×3 (07:58→21:53)
[2020-04-07] MEDS: FUROSEMIDE INJ 10 MG/ML 4 ML VIAL IV SCH ×2 (08:44→20:12)
[2020-04-07] MEDS: CARVEDILOL 12.5 MG TAB PO SCH ×2 (08:46→18:13)
[2020-04-07] MEDS: CAPTOPRIL 25 MG TAB PO SCH ×3 (08:46→20:12)
[2020-04-07] MEDS: ATORVASTATIN 20 MG TAB PO SCH (08:47)
[2020-04-07] MEDS: MONTELUKAST SODIUM 10 MG TAB PO SCH (08:47)
[2020-04-07] MEDS: SALMETEROL/FLUTICASONE 250/50 INH SCH ×2 (09:00→18:45)
--- NOTE | 2020-04-07 12:20 | NUR ---
ORDERS REC'D FROM DR DUBOIS FOR HOME 02 NO EVAL DONE ORDERS ENTERED FOR HOME 02 EVAL AWAIT RESULTS TO ARRANGE
[2020-04-07] MEDS: CEFTRIAXONE SOD 1 GM/NS 50 ML 50 ML IV SCH (14:50)
[2020-04-07] MEDS ORDERED: WARFARIN SOD 5 MG TAB PO SCH (17:00)
--- NOTE | 2020-04-07 17:36 | Consultation ---
DATE OF CONSULTATION: 04/07/2020 Cardiology Consultation Thank you so much for asking me to see this nice lady again in consultation. Ms. Pena is a complex 64-year-old woman with a long medical history, who presents again to the emergency room on the morning of the 06 of April after she was discharged on the afternoon of the . HISTORY OF PRESENT ILLNESS: The patient tells me about multiple details of her day after going to the house, sleeping without difficulty, but developing sudden dyspnea on the morning of the . She reports that she was instructed not taking Lasix until the morning. PAST MEDICAL HISTORY: Long and complex, including recent hospitalization at [facility] from April 03 and April 05 for combined congestive heart failure and COPD. 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 She has been hospitalized at [facility] in January and March of this year for diagnoses of COPD and pneumonia. FAMILY HISTORY: Father of heart disease. PERSONAL AND SOCIAL HISTORY: The patient is smoking continuously since her teenage years, which would be almost 50 years. HOME MEDICATIONS: Include; Lipitor 80 mg daily, omeprazole 20 mg daily, Nasonex, carvedilol 12.5 twice a day, captopril 12.5 twice a day, Singulair, Advair, warfarin 5 mg daily since her stroke. ALLERGIES: SHE HAS NO KNOWN ALLERGIES. PHYSICAL EXAMINATION: GENERAL: At this time, shows an obese woman, who is sitting up in bed. VITAL SIGNS: Blood pressure is 137/70. HEAD, EYES, EARS, NOSE, AND THROAT: Unremarkable. NECK: Thick. THORAX: Heart sounds S1 and S2 are equal. No murmurs. LUNGS: Relatively clear. ABDOMEN: Markedly protuberant. EXTREMITIES: No cyanosis, clubbing, or edema. LABORATORY DATA: Initial white cell count was 13.7, but today's white cell count 21.9. Her troponins all normal. Cholesterol 168, HDL 56, LDL 87. Blood gas this morning shows pH of 7.33, pCO2 of 60, and PO2 of 306. CAT scan of the chest shows scarring and opacities in both upper lobes. ASSESSMENT: 1. Congestive heart failure. 2. Chronic obstructive pulmonary disease. 3. Old cerebrovascular accident. 4. Coronary artery disease, clinically stable. Echocardiogram showed EF about 30% last week. Suggest diuresis and I begun to teach her about daily weights and initial use of a furosemide twice a day, and will change it to intravenous at this time to obtain some diuresis. Monitor pulmonary function. Prognosis is guarded. Thank you for asking me to see in consultation. MD ARMINDA Dunbar/MODL /[id number] cc: MD Etienne Garza MD
[2020-04-07] MEDS: ENOXAPARIN SOD INJ 40 MG/0.4 ML SYR SC SCH (18:14)
[2020-04-07] MEDS ORDERED: CALCIUM CARBONATE 500 MG CHEWABLE TABS PO PRN (18:15)
[2020-04-07] MEDS ORDERED: DIAZEPAM 5 MG TAB PO PRN (19:30)
--- NOTE | 2020-04-07 21:02 | Progress Note ---
DATE: 04/07/2020 Medicine Progress Note SUBJECTIVE: The patient is doing well today. She is breathing much better. PHYSICAL EXAMINATION: VITAL SIGNS: Afebrile. Normotensive. Respiratory rate is good. GENERAL: No acute distress. Alert and oriented x3. PULMONARY: Clear to auscultation bilaterally. No wheezing, rales, or rhonchi. No crackles appreciated. CARDIOVASCULAR: Positive S1 and S2. No murmurs, rubs, or gallops appreciated. ABDOMEN: Soft, nondistended, nontender to palpation. Bowel sounds present. MUSCULOSKELETAL: Strength 5/5 throughout. NEUROLOGICAL: Cranial nerves 2 through 12 grossly intact LABORATORY DATA: CBC shows white count 21 from steroids, hemoglobin 14, hematocrit 44, platelets of 191. Coagulation; PT 19, INR 1.53. Chemistry; sodium 136, potassium 4.6, chloride 93, bicarb 33, anion gap 14, BUN is 27, creatinine is 1.27, glucose is 160. Hemoglobin A1c is 5.8. Troponins were all negative. LDL 87. Blood cultures, no growth. IMAGING STUDIES: Chest CT just shows some nonspecific scarring, ground-glass opacities in the anterior aspect of the upper lobes. No focal consolidation, pleural effusion or pneumothorax. Findings could be related to resolving infection versus recent inhalation insult. No evidence of PE. IMPRESSION: 1. Acute exacerbation of chronic obstructive pulmonary disease. 2. History of anxiety with underlying concerns for panic attack. 3. Acute exacerbation of congestive heart failure with systolic and diastolic dysfunction. 4. Morbid obesity. 5. Hypertension. PLAN: At this time, continue with steroids, neb treatments, antibiotic therapy including Advair and Pulmonary following. Diuretics, cardioprotective medications. Cardiology consulted. Get an INR for the morning for prophylaxis as well. The patient is on warfarin. Plan of care discussed with the patient and nursing staff. MD HERRERA Virk/GHASSAN /[id number]
[2020-04-07] MEDS: ALPRAZOLAM 0.25 MG TAB PO PRN (21:53)
[2020-04-08] VITALS (8 sets, daily range): BP systolic 105–158; BP diastolic 50–86
[2020-04-08 05:22] LABS: BASOPHILS # (AUTO) 0.1 (0.0-0.1); BASOPHILS % 0.3 % (0.0-1.0); HEMOGLOBIN 13.2 g/dL (12.0-16.0); LYMPHOCYTES # (AUTO) 1.2 (1.0-3.2); LYMPHOCYTES % 4.8 % (18.0-39.1); MEAN CORPUSCULAR HEMOGLOBIN 30.8 pg (28-32); MEAN CORPUSCULAR HGB CONC 32.2 g/dL (31-35); MEAN CORPUSCULAR VOLUME 95.6 fL (81-99); MONOCYTES # (AUTO) 0.7 (0.2-0.8); MONOCYTES % 2.7 % (4.4-11.3); NEUTROPHILS # (AUTO) 22.4 (2.1-6.9); NEUTROPHILS % 90.8 % (38.7-80.0); PLATELET COUNT 189 x10e3/uL (140-360); RED BLOOD COUNT 4.29 x10e6/uL (3.6-5.1); RED CELL DISTRIBUTION WIDTH 15.1 % (11.7-14.4)
[2020-04-08 05:33] LABS: INR 1.64; PROTHROMBIN TIME 20.2 seconds (11.9-14.5)
[2020-04-08 05:55] LABS: ALANINE AMINOTRANSFERASE 24 IU/L (0-55); ALKALINE PHOSPHATASE 56 IU/L (40-150); ANION GAP 13.8 mmol/L (8-16); BLOOD UREA NITROGEN 34 mg/dL (7-26); BUN/CREATININE RATIO 31 (6-25); CALCIUM 8.9 mg/dL (8.4-10.2); CARBON DIOXIDE 32 mmol/L (22-29); CHLORIDE 93 mmol/L (98-107); EST GLOMERULAR FILTRATION RATE 50 ML/MIN (60-); GLUCOSE 174 mg/dL (74-118); POTASSIUM 4.8 mmol/L (3.5-5.1); SODIUM 134 mmol/L (136-145)
[2020-04-08 05:56] LABS: ALBUMIN < 0.4 g/dL (3.5-5.0); ALBUMIN/GLOBULIN RATIO 0.1 (0.8-2.0)
[2020-04-08] MEDS: ALBUTEROL/IPRATROPIUM 3 ML NEB NEB PRN (07:05)
[2020-04-08] MEDS: SALMETEROL/FLUTICASONE 250/50 INH SCH ×2 (07:05→19:58)
[2020-04-08] MEDS: PANTOPRAZOLE SOD 40 MG TABEC PO SCH (08:11)
[2020-04-08] MEDS: FUROSEMIDE INJ 10 MG/ML 4 ML VIAL IV SCH (08:18)
[2020-04-08] MEDS: MONTELUKAST SODIUM 10 MG TAB PO SCH (08:18)
[2020-04-08] MEDS: CAPTOPRIL 25 MG TAB PO SCH ×3 (08:18→21:48)
[2020-04-08] MEDS: ATORVASTATIN 20 MG TAB PO SCH (08:18)
[2020-04-08] MEDS: METHYLPREDNISOLONE SOD SUCC 40 MG/ML VIAL 1ML IV SCH (08:18)
[2020-04-08] MEDS: CARVEDILOL 12.5 MG TAB PO SCH ×2 (08:19→17:05)
--- NOTE | 2020-04-08 12:43 | NUR ---
Discontinuing PT services since patient is independent in functional mobility. Thank you Addendum: 04/08/20 at 1243 by Jean-Claude ridley PT Amended: Links added.
[2020-04-08] MEDS: CEFTRIAXONE SOD 1 GM/NS 50 ML 50 ML IV SCH (14:59)
[2020-04-08] MEDS ORDERED: WARFARIN SOD 5 MG TAB PO SCH (17:00)
[2020-04-08] MEDS: ENOXAPARIN SOD INJ 40 MG/0.4 ML SYR SC SCH (17:05)
[2020-04-09] VITALS: BP 118/56
--- NOTE | 2020-04-09 00:42 | Progress Note ---
DATE: 04/08/2020 Medicine Progress Note SUBJECTIVE: The patient is doing well today with no complaints. She is breathing well on room air. I discussed the plan of care with her with the nursing staff present. PHYSICAL EXAMINATION: VITAL SIGNS: Temperature is 97.8, pulse 59, respiratory rate is 22, blood pressure 150/61, pulse ox 95% on room air. GENERAL: No acute distress. Alert, oriented x3. PULMONARY: Clear to auscultation bilaterally. No wheezing, rales, or rhonchi. No crackles appreciated. CARDIOVASCULAR: Positive S1 and S2. No murmurs, rubs, or gallops appreciated. ABDOMEN: Soft, nondistended, nontender to palpation. Bowel sounds present. MUSCULOSKELETAL: Strength is 5/5 throughout. No evidence of muscle deficits on examination. SKIN: Intact. Warm to touch. Good cap refill. PSYCHIATRIC: Normal affect and mood. EXTREMITIES: No edema. Good range of motion throughout. LABORATORY DATA: Labs show white count was 24, this was secondary to steroids, hemoglobin 13, hematocrit is 41, platelets of 189. Coagulation; PT 20, INR 1.64. Chemistry; sodium 134, potassium 4.8, chloride 93, bicarb 32, anion gap of 13, BUN is 34, creatinine is 1.1, glucose is 174, and A1c is 5.8. Troponins were all negative. Coronavirus not detected. MICROBIOLOGY: Blood cultures, no growth today. IMAGING STUDIES: Nothing new. IMPRESSION: 1. Acute exacerbation of chronic obstructive pulmonary disease. 2. History of anxiety with underlying concerns for panic attack. 3. Acute exacerbation of congestive heart failure with systolic and diastolic dysfunction. 4. Morbid obesity. 5. Hypertension. PLAN: At this time, continue with steroids, neb treatments, antibiotic therapy including Advair, in which Pulmonary is following. She does not qualify for home O2, which has been assessed by nursing staff on several occasions. She is on room air. As from Cardiology, she will continue with diuretics, educated her on daily weights, may need to increase diuretics. Discussed diet and salt intake at home. We will also get an INR level in the morning. Continue same plan of care. Monitor closely. Her white count is elevated secondary to steroids as she is afebrile, doing very well. MD HERRERA Virk/NICL /[id number]
[2020-04-09 04:00] VITALS: BP 135/67
[2020-04-09] MEDS: ALPRAZOLAM 0.25 MG TAB PO PRN (05:12)
--- NOTE | 2020-04-09 06:22 | Diagnostic Imaging Report ---
EXAMINATION: CHEST 2 VIEWS INDICATION: ^sob ^[id number] ^[id number] COMPARISON: 04/06/2020 FINDINGS: PA and lateral views TUBES and LINES: None. LUNGS: Lungs are well inflated. There is no evidence of pneumonia or pulmonary edema. Unchanged mild central vascular congestion. PLEURA: No significant pleural effusion or pneumothorax. HEART AND MEDIASTINUM: The cardiomediastinal silhouette is unremarkable. BONES AND SOFT TISSUES: No acute osseous lesion. Soft tissues are unremarkable. UPPER ABDOMEN: No free air under the diaphragm. IMPRESSION: No significant interval change from prior exam. Signed by: Dr. Ismael Karimi MD on 04/09/2020 6:19 AM
[2020-04-09 06:45] LABS: BASOPHILS # (AUTO) 0.1 (0.0-0.1); BASOPHILS % 0.3 % (0.0-1.0); EOSINOPHILS # (AUTO) 0.1 (0.0-0.4); EOSINOPHILS % 0.6 % (0.0-6.0); HEMATOCRIT 42.9 % (34.2-44.1); HEMOGLOBIN 13.5 g/dL (12.0-16.0); LYMPHOCYTES # (AUTO) 2.6 (1.0-3.2); LYMPHOCYTES % 14.8 % (18.0-39.1); MEAN CORPUSCULAR HEMOGLOBIN 30.8 pg (28-32); MEAN CORPUSCULAR HGB CONC 31.5 g/dL (31-35); MEAN CORPUSCULAR VOLUME 97.7 fL (81-99); MONOCYTES # (AUTO) 1.1 (0.2-0.8); NEUTROPHILS # (AUTO) 13.4 (2.1-6.9); NEUTROPHILS % 77.1 % (38.7-80.0); PLATELET COUNT 187 x10e3/uL (140-360); RED BLOOD COUNT 4.39 x10e6/uL (3.6-5.1); RED CELL DISTRIBUTION WIDTH 15.1 % (11.7-14.4)
[2020-04-09 07:02] LABS: INR 1.92; PROTHROMBIN TIME 22.9 seconds (11.9-14.5)
[2020-04-09 07:05] LABS: ANION GAP 12.4 mmol/L (8-16); CREATININE, SERUM 1.06 mg/dL (0.57-1.11); POTASSIUM 4.4 mmol/L (3.5-5.1)
[2020-04-09] MEDS ORDERED: METHYLPREDNISOLONE SOD SUCC 40 MG/ML VIAL 1ML IV SCH (07:30)
[2020-04-09 08:00] VITALS: BP 151/61
[2020-04-09 08:30] VITALS: BP 151/61
[2020-04-09] MEDS: PANTOPRAZOLE SOD 40 MG TABEC PO SCH (08:38)
[2020-04-09] MEDS: ATORVASTATIN 20 MG TAB PO SCH (08:38)
[2020-04-09] MEDS: MONTELUKAST SODIUM 10 MG TAB PO SCH (08:38)
[2020-04-09] MEDS: CARVEDILOL 12.5 MG TAB PO SCH (08:39)
[2020-04-09] MEDS: CAPTOPRIL 25 MG TAB PO SCH (08:39)
--- NOTE | 2020-04-09 08:43 | NUR ---
Per patient she reports that "she fell on floor around 3am on her knees", patient denies pain and states "she did not inform her nurse because it was no big deal". Charge nurse notified and Primary MD informed.
[2020-04-09] MEDS: SALMETEROL/FLUTICASONE 250/50 INH SCH (08:52)
--- NOTE | 2020-04-09 11:48 | NUR ---
02 SATS DO NOT QUALIFY PT FOR 02 SATS ON ROOM AIR WITH EXERTION 96% PT UNDERSTANDS AND IS WILLING TO PAY [place] CHOICE LETTER SIGNED FOR [facility] MEDICAL PRICES GIVEN TO PT: CONCENTRATOR 120/MONTH, PORTABLES 25/TANK, OVERNIGHT 02 MONITOR 40 DOLLARS COPY OF CHOICE LETTER GIVEN TO PT CONFIRMED ADDRESS AND PHONE NUMBER CORRECT ON [employer] FAXED TO [facility] AT [phone]; CONFIRMATION REC'D PT CALLED [facility] AND GAVE CREDIT CARD INFORMATION FOR PAYMENT REC'D PHONE CALL FROM MIK WITH [employer] WITH APPROVAL TO GIVE PT PORTABLE TANK TANK DELIVERED TO PT'S ROOM WITH INSTRUCTIONS FOR HER TO CALL [facility] UPON ARRIVAL HOME, FOR DELIVERY OF CONCENTRATOR AND OVERNIGHT 02 MONITOR PT UNDERSTANDS AND AGREES, AT BEDSIDE
[2020-04-09 12:45] VITALS: BP 111/77
--- NOTE | 2020-04-09 12:55 | NUR ---
PATIENT RECEIVED FROM [facility] PER STRETCHER. ALERT AND VERBALLY RESPONSIVE. AMBULATED TO THE RESTROOM AND BACK TO BED. REQUESTED AND RECEIVED A CUP OF ICE WATER. CALL LIGHT AT REACH
[2020-04-09 14:02] LABS: BASOPHILS % 0.3 % (0.0-1.0); EOSINOPHILS % 0.2 % (0.0-6.0); HEMATOCRIT 45.3 % (34.2-44.1); HEMOGLOBIN 14.3 g/dL (12.0-16.0); LYMPHOCYTES # (AUTO) 1.4 (1.0-3.2); LYMPHOCYTES % 9.5 % (18.0-39.1); MEAN CORPUSCULAR HGB CONC 31.6 g/dL (31-35); MEAN CORPUSCULAR VOLUME 98.1 fL (81-99); MONOCYTES # (AUTO) 0.4 (0.2-0.8); MONOCYTES % 2.3 % (4.4-11.3); NEUTROPHILS # (AUTO) 12.9 (2.1-6.9); NEUTROPHILS % 85.6 % (38.7-80.0); PLATELET COUNT 190 x10e3/uL (140-360); RED BLOOD COUNT 4.62 x10e6/uL (3.6-5.1); RED CELL DISTRIBUTION WIDTH 15.3 % (11.7-14.4)
--- NOTE | 2020-04-09 15:39 | NUR ---
NOTIFIED OF THE NEW WBC RESULT; DECREASING AT THIS TIME. NO FEVER OBSERVED. OK TO DISCHARGE PATIENT HOME.
--- NOTE | 2020-04-09 16:10 | NUR ---
PATIENT DISCHARGED HOME. DISCHARGE INSTRUCTIONS, PRESCRIPTIONS, AND FOLLOW UP GIVEN TO PATIENT. SHE VERBALIZED UNDERSTANDING. IV TO LEFT FOREARM REMOVED WITH TIP INTACT. ALL PERSONAL ITEMS TAKEN WITH PATIENT. LEFT UNIT PER WHEEL CHAIR TO FRONT LOBBY IN STABLE CONDITION.
[2020-04-10] MEDS ORDERED: METHYLPREDNISOLONE SOD SUCC 40 MG/ML VIAL 1ML IV SCH (07:30)
--- NOTE | 2020-04-10 13:56 | Discharge Summary ---
FINAL DISCHARGE DIAGNOSES: 1. Acute exacerbation of chronic obstructive pulmonary disease. 2. Acute exacerbation of congestive heart failure with systolic and diastolic dysfunction. 3. Steroid-induced leukocytosis. 4. Hypertension. 5. History of anxiety. 6. History of cerebrovascular accident, on anticoagulation. CONSULTANTS: Pulmonary Critical Care and Cardiology. PHYSICAL EXAMINATION: VITAL SIGNS: Temperature 98.1, pulse 59, respiratory rate is 15, blood pressure 111/77, and pulse ox 95%. She is on room air. LABORATORY FINDINGS: Show white count 15, which is downtrending, hemoglobin 14, hematocrit is 45, and platelets of 190. Chemistry; sodium 139, potassium 4.4, chloride 95, bicarb 36, anion gap of 12, BUN is 35, creatinine is 1.06, and glucose is 99. Hemoglobin A1c 5.8. LFTs within normal range. Troponins were negative. Albumin normal. LDL 87. Coronavirus not detected. ABG gas shows a pH of 7.3, pCO2 of 60, PO2 of 306, bicarb of 32, and FiO2 of 80. This was on admission. MICROBIOLOGY: Blood culture no growth x2, greater than 72 hours. IMAGING STUDIES: Chest x-ray on admission shows some mild interstitial prominence throughout both lung rojo, likely reflective of pulmonary vascular congestion. HOSPITAL COURSE: A 64-year-old female, known history of heart failure and COPD, very noncompliant with her medications. She comes in after recently just being discharged with underlying acute onset of shortness of breath. The patient reportedly went home, apparently ate some salty foods, developed with acute onset of shortness of breath and came into the ED for further evaluation. The patient was admitted to [facility] prompting Cardiology and Pulmonary consultation. Imaging studies, chest x-ray consistent with pulmonary edema. She was started on IV steroids, neb treatments, antibiotics as well as IV diuretics. The patient was discharged on diuretics as well as antibiotics on previous discharge. The patient's white count did elevate, but downtrended upon discharge. This is all secondary to steroid-induced leukocytosis. There are no obvious findings of any infection. Chest x-ray was negative for any pneumonia. Her blood cultures were negative. The patient did not qualify for home O2. She was discharged on steroids for 14 days. She already has antibiotics from the previous discharge. She also has diuretics already ordered by Cardiology from the previous discharge. She was educated about fluid intake at home, salt intake as well and education about daily weights and in the event, if she has increased weight, she will need to take an additional dose of Lasix. She has also been cleared by Cardiology. On discharge, the patient was doing well, back to baseline with no complaints. She was afebrile throughout the hospital course and she was back to normal baseline. On the day of discharge, vital signs were stable, labs reviewed and stable. The patient is seen, evaluated, and examined thoroughly on the day of discharge. No other complaints. The patient verbalized understanding and agrees to plan of care to follow up as an outpatient with the primary care physician in one week, Pulmonary and Cardiology in 1 to 2 weeks' time. MEDICATIONS: See medication reconciliation form. DISPOSITION: Home. CONDITION: Stable. DIET: Heart healthy. In the event of any worsening symptoms, the patient was advised to come back to the ED for further evaluation. Discharge summary took greater than 35 minutes. MD HERRERA Virk/GHASSAN /[id number]
== END 2020-04-09 16:02 | disposition home or self-care (01) | DRG 190 ==
LOC: ER 07:50 → ERHOLD 09:38 → IMCU 13:42 → MED/SURG3 04-09 12:48
PROVIDERS: ADMIT Internal Medicine; ATTEND Internal Medicine
DX: J44.1 Chronic obstructive pulmonary disease with (acute) exacerbation (principal); I50.41 Acute combined systolic (congestive) and diastolic (congestive) heart failure; I11.0 Hypertensive heart disease with heart failure; Z86.73 Personal history of transient ischemic attack (TIA), and cerebral infarction without residual deficits; F41.9 Anxiety disorder, unspecified; Z20.828 Contact with and (suspected) exposure to other viral communicable diseases; E66.01 Morbid (severe) obesity due to excess calories; Z68.34 Body mass index [BMI] 34.0-34.9, adult
CPT/HCPCS: 36415; 36600; 71045; 71046; 71260; 80048; 80053; 80061; 82550; 82553; 82805; 83036; 83605; 83880; 84443; 84484; 85025; 85610; 87040; 93005; 94640; 94660; 94664; 99285; J0696; J1650; J1940; J2405; J2920; J2930; J7050; Q9967; U0002

== ENCOUNTER → 2020-04-30 | Outpatient (CLI) | payer BC | LOC: CT 17:26 | PROVIDERS: ATTEND Internal Medicine Pulmonary Disease | DX: J84.10 Pulmonary fibrosis, unspecified (principal) | CPT/HCPCS: 71250 ==

== ENCOUNTER → 2021-06-04 | Outpatient (CLI) | payer BC | LOC: CT 15:55 | PROVIDERS: ATTEND Internal Medicine Pulmonary Disease | DX: J84.10 Pulmonary fibrosis, unspecified (principal) | CPT/HCPCS: 71250 ==

== ENCOUNTER → 2022-06-04 | Outpatient (CLI) | payer MEDICARE | LOC: CT 09:35 | PROVIDERS: ATTEND Internal Medicine Pulmonary Disease | DX: J44.9 Chronic obstructive pulmonary disease, unspecified (principal) | CPT/HCPCS: 71250 ==

== ENCOUNTER → 2022-06-29 | Outpatient (CLI) | payer MEDICARE ==
[~2022-06-29] MED LIST changes: +FENTANYL CITRATE/PF 100MCG/2 ML INJ ONE; +LIDOCAINE 1% 10 ML MULTIDOSE VIAL IJ ONE; +MIDAZOLAM HCL 2 MG/2 ML VIAL ONE; +SODIUM CHLORIDE 0.9% 250ML 250 ML ONE
[2022-06-29 09:59] LABS: BASOPHILS % 0.2 % (0.0-1.0); EOSINOPHILS # (AUTO) 0.2 (0.0-0.4); EOSINOPHILS % 2.3 % (0.0-6.0); HEMATOCRIT 38.8 % (34.2-44.1); HEMOGLOBIN 10.7 g/dL (12.0-16.0); LYMPHOCYTES # (AUTO) 1.7 (1.0-3.2); LYMPHOCYTES % 20.7 % (18.0-39.1); MEAN CORPUSCULAR HEMOGLOBIN 24.4 pg (28-32); MEAN CORPUSCULAR HGB CONC 27.6 g/dL (31-35); MEAN CORPUSCULAR VOLUME 88.4 fL (81-99); MONOCYTES # (AUTO) 0.6 (0.2-0.8); MONOCYTES % 7.9 % (4.4-11.3); NEUTROPHILS # (AUTO) 5.5 (2.1-6.9); NEUTROPHILS % 68.3 % (38.7-80.0); PLATELET COUNT 253 x10e3/uL (140-360); RED BLOOD COUNT 4.39 x10e6/uL (3.6-5.1); RED CELL DISTRIBUTION WIDTH 19.9 % (11.7-14.4)
[2022-06-29 10:11] LABS: INR 1.01; PROTHROMBIN TIME 13.5 seconds (11.9-14.5)
[2022-06-29 10:19] LABS: ANION GAP 12.5 mmol/L (8-16); CALCIUM 8.7 mg/dL (8.4-10.2); CREATININE, SERUM 0.88 mg/dL (0.57-1.11); POTASSIUM 4.5 mmol/L (3.5-5.1)
== END ==
LOC: CT 08:58
PROVIDERS: ATTEND Internal Medicine Pulmonary Disease
DX: R91.1 Solitary pulmonary nodule (principal)
CPT/HCPCS: 0223U; 32408; 36415 ×2; 71045; 77012; 80048; 85025; 85610; 85730; 88305; 88342; J2250; J3010; J7050; 88304

== ENCOUNTER → 2022-07-29 | Outpatient (CLI) | payer MEDICARE ==
[~2022-07-29] MED LIST changes: -FENTANYL CITRATE/PF 100MCG/2 ML INJ ONE; +GADOBENATE DIMEGLUMINE 1 ML IV ONE; -LIDOCAINE 1% 10 ML MULTIDOSE VIAL IJ ONE; -MIDAZOLAM HCL 2 MG/2 ML VIAL ONE; -SODIUM CHLORIDE 0.9% 250ML 250 ML ONE
[2022-07-29 09:58] LABS: CREATININE, SERUM 1.15 mg/dL (0.57-1.11)
== END ==
LOC: MRI 09:07
PROVIDERS: ATTEND Internal Medicine Medical Oncology
DX: C34.12 Malignant neoplasm of upper lobe, left bronchus or lung (principal)
CPT/HCPCS: 36415; 70553; 82565; 84520; A9577

== ENCOUNTER → 2022-10-05 | Outpatient (CLI) | payer MEDICARE ==
[~2022-10-05] MED LIST changes: -GADOBENATE DIMEGLUMINE 1 ML IV ONE
== END ==
LOC: RAD 08:57
PROVIDERS: ATTEND Internal Medicine Medical Oncology
DX: C34.12 Malignant neoplasm of upper lobe, left bronchus or lung (principal)
CPT/HCPCS: 71046

== ENCOUNTER 2022-10-20 10:21 | Emergency (ER) | payer MEDICARE ==
[~2022-10-20] VITALS: Ht 162.6 cm; Wt 91.6 kg
[2022-10-20 10:31] VITALS: O2SAT 100
[2022-10-20 11:43] LABS: BASOPHILS % 0.2 % (0.0-1.0); EOSINOPHILS % 0.1 % (0.0-6.0); HEMATOCRIT 27.3 % (34.2-44.1); HEMOGLOBIN 8.7 g/dL (12.0-16.0); LYMPHOCYTES # (AUTO) 1.6 (1.0-3.2); LYMPHOCYTES % 15.5 % (18.0-39.1); MEAN CORPUSCULAR HEMOGLOBIN 28.1 pg (28-32); MEAN CORPUSCULAR HGB CONC 31.9 g/dL (31-35); MEAN CORPUSCULAR VOLUME 88.1 fL (81-99); MONOCYTES # (AUTO) 0.6 (0.2-0.8); MONOCYTES % 6.2 % (4.4-11.3); NEUTROPHILS % 76.9 % (38.7-80.0); PLATELET COUNT 241 x10e3/uL (140-360); RED CELL DISTRIBUTION WIDTH 28.9 % (11.7-14.4)
[2022-10-20 11:54] LABS: CLARITY,URINE CLEAR (CLEAR); COLOR,URINE YELLOW (YELLOW); KETONES,URINE NEGATIVE (NEGATIVE); LEUKOCYTE ESTERASE ,URINE NEGATIVE (NEGATIVE); NITRITE,URINE NEGATIVE (NEGATIVE); PROTEIN,URINE DIPSTICK NEGATIVE (NEGATIVE); URINE UROBILINOGEN 0.2 mg/dL (0.2 - 1)
[2022-10-20 11:55] LABS: STREPTOCOCCUS GRP A ANTIGEN NEGATIVE (NEGATIVE)
[2022-10-20 12:02] LABS: ANION GAP 16.1 mmol/L (8-16); BLOOD UREA NITROGEN 12 mg/dL (7-26); BUN/CREATININE RATIO 12 (6-25); CALCIUM 8.2 mg/dL (8.4-10.2); CARBON DIOXIDE 25 mmol/L (22-29); CHLORIDE 93 mmol/L (98-107); CREATINE KINASE 51 IU/L (29-168); CREATININE, SERUM 1.02 mg/dL (0.57-1.11); GLUCOSE 146 mg/dL (74-118); POTASSIUM 4.1 mmol/L (3.5-5.1); SODIUM 130 mmol/L (136-145)
[2022-10-20 12:03] LABS: EPITHELIAL CELLS,URINE FEW /LPF
[2022-10-20 12:04] LABS: BACTERIA,URINE RARE /HPF; RBC,URINE 0-5 /HPF (0-5); WBC,URINE (MAN) 0-5 /HPF (0-5)
[2022-10-20 12:06] LABS: INFLUENZAE A&B ANTIGEN (RAPID) NEGATIVE (NEGATIVE)
[2022-10-20] MEDS ORDERED: FUROSEMIDE INJ 10 MG/ML 2 ML VIAL IV ONE (14:30)
== END 2022-10-20 15:14 | disposition home or self-care (01) ==
LOC: ER 10:25
DX: R06.02 Shortness of breath (principal); R06.01 Orthopnea; R05.9 Cough, unspecified; Z20.822 Contact with and (suspected) exposure to COVID-19; Z85.118 Personal history of other malignant neoplasm of bronchus and lung
CPT/HCPCS: 0223U; 36415; 71046; 80048; 81001; 82550; 83518; 83880; 84484; 85025; 85379; 87070; 87400; 99283; J1940